=== PATIENT | male | born 1960 | race African-American/Black ===

== ENCOUNTER 2017-05-01 10:00 | Emergency (ER) | payer MEDICARE ==
[2017-05-01] MEDS ORDERED: Pantoprazole 40 MG VIAL ONE (10:40)
[2017-05-01] MEDS ORDERED: Ondansetron HCl/PF 4 MG/2 ML Vial ONE (10:40)
[2017-05-01 11:00] LABS: #Basophils 0.1 thou/uL (0.0-0.2); #Eosinphils 0.4 thou/uL (0.0-0.7); #Lymphocytes 1.6 thou/uL (1.20-3.40); #Monocytes 0.5 thou/uL (0.11-0.59); #Neutrophils 6.6 thou/uL (1.40-6.50); %Basophils 0.9 % (0.0-1.0); %Eosinophils 3.9 % (0.0-10.0); %Lymphocytes 17.2 % (21.0-51.0); %Monocytes 5.7 % (0.0-10.0); Hematocrit 34.6 % (42.0-52.0); Red Blood Cell (RBC) Count 3.67 mill/uL (4.70-6.10); White Blood Cell (WBC) Count 9.2 thou/uL (4.8-10.8)
[2017-05-01 11:08] LABS: PTT 34.4 SEC (22.9-36.1); Prothrombin Time 15.1 SEC (12.0-14.7)
[2017-05-01 11:09] LABS: ALT (SGPT) 8 U/L (8-55); AST (SGOT) 13 U/L (5-34); Alkaline Phosphatase 79 U/L (40-150); Anion Gap 16 mmol/L (10-20); BUN (Urea Nitrogen) 58 mg/dL (8.4-25.7); Bilirubin, Total 0.4 mg/dL (0.2-1.2); CK (CPK) 228 U/L (30-200); Calc. Creatinine Clearance 0 mL/min (70-130); Calcium 9.3 mg/dL (7.8-10.44); Carbon Dioxide 16 mmol/L (22-29); Chloride 109 mmol/L (98-107); Estimated GFR-MDRD 12; Globulin 3.6 g/dL (2.4-3.5); Lipase 81 U/L (8-78); Protein, Total 7.4 g/dL (6.0-8.3)
[2017-05-01 11:13] LABS: Troponin I Less than 0.010 ng/mL (< 0.028)
--- NOTE | 2017-05-01 11:20 | RAD ---
AP VIEW CHEST: HISTORY: Epigastric pain. DATE: 05/01/17. COMPARISON: Comparison is made to previous exam from 10/08/15. FINDINGS: AP view chest demonstrates EKG leads seen over the chest. A dual-lead intracardiac pacing device is seen. The lungs are well aerated. No evidence of active intrathoracic disease is seen. No eviden ce of effusions, pneumonia, or pneumothorax is seen. IMPRESSION: Unremarkable AP view chest. POS: [facility]
[2017-05-01 11:51] LABS: Bilirubin Negative (Negative); Blood, Urine Trace (Negative); Glucose, Urine (Dipstick) Negative (Negative); Ketone, Urine Negative (Negative); Nitrite Negative (Negative); Protein, Urine (Dipstick) 100 mg/dL (Neg-Trace); Urobilinogen 0.2 mg/dL (0.2-1.0)
[2017-05-01 11:53] LABS: Bacteria/HPF None Seen HPF (None Seen); Hyaline Casts/LPF 0-3 HYALINE CAST LPF (0-3 Hyaline); Squamous Epithelial None Seen HPF (0-3); WBC/HPF None Seen HPF (0-3)
--- NOTE | 2017-05-01 11:56 | ULT ---
RIGHT UPPER SONOGRAM: HISTORY: Right upper quadrant pain. FINDINGS: The gallbladder has a normal appearance without evidence of stones. The common duct is 0.[address] Liver is unremarkable without focal mass or intrahepatic biliary dilatation. No free fluid is visible. IMPRESSION: No evidence of gallstones or biliary obstruction. POS: [facility]
--- NOTE | 2017-05-04 06:41 | EKG ---
Test Reason : Blood Pressure : / mmHG Vent. Rate : 080 BPM Atrial Rate : 080 BPM P-R Int : 162 ms QRS Dur : 126 ms QT Int : 386 ms P-R-T Axes : 059 000 063 degrees QTc Int : 445 ms Electronic ventricular pacemaker Confirmed by TRERANCE BELTRAN, DARRIN ([id number]), makeup editor TORITO AGRAWAL ([id number]) on 05/04/2017 6:41:13 AM Referred By: Confirmed By:DARRIN CARLOS MD
== END 2017-05-01 13:54 | disposition home or self-care (01) ==
LOC: ERS 10:00
DX: R10.13 Epigastric pain (principal); I49.9 Cardiac arrhythmia, unspecified; E11.9 Type 2 diabetes mellitus without complications; E78.5 Hyperlipidemia, unspecified; I10 Essential (primary) hypertension; F17.210 Nicotine dependence, cigarettes, uncomplicated; Z79.899 Other long term (current) drug therapy
CPT/HCPCS: 36415; 71010; 76705; 80053; 81003; 81015; 82553; 83690; 83880; 84484; 85025; 85610; 85730; 93005; 94760; 96361; 96374; 96375; C9113; J2270; J2405

== ENCOUNTER 2017-07-11 12:39 | Inpatient (IN) | payer MEDICARE ==
[2017-07-11] MEDS ORDERED: Meclizine HCl 25 MG TAB ONE (12:57)
--- NOTE | 2017-07-11 16:11 | CT ---
CT CHEST WITHOUT CONTRAST: Technique: Multiple axial tomograms were obtained through the chest without IV contrast. History: Dyspnea. Cough. FINDINGS: No recent comparison chest films. Correlation made to a portable chest of 05-01-17. Lungs are well aerated. There are some chronic lung parenchymal changes. There are small blebs seen i n the periphery anteriorly of both lungs. There is some hazy opacity in the right middle lobe which m ay represent early changes of infiltrate. There is also some hazy ground glass opacity in both in store marketing associate ior lung bases which could potentially represent early infiltrate. Chronic changes in both lung bases also noted with interstitial thickening and tiny cystic changes indicating early honeycombing. No evidence of adenopathy. Images through the upper abdomen are unremarkable. IMPRESSION: 1. Chronic lung changes as noted above. 2. Question some early hazy infiltrate in the right middle lobe and question hazy early infiltrate ch anges in both posterior lung bases. These area of ground glass opacity are associated with chronic anny ng findings and these ground glass opacities may also be chronic. Follow up would be necessary to ass ess stability after medical treatment. POS: [facility]
[2017-07-11] MEDS ORDERED: Acetaminophen 325 MG TAB PO PRN (18:17)
[2017-07-11] MEDS ORDERED: HumaLOG 300 UNITS/3 ML VIAL SC PRN (18:17)
[2017-07-11] MEDS ORDERED: Senokot 8.6 MG TAB PO PRN (18:17)
[2017-07-11] MEDS ORDERED: Dextrose 50% Abboject 50 ML SYRINGE SLOW IVP PRN (18:17)
[2017-07-11] MEDS ORDERED: Dextrose 5% in Water 1,000 ML IV PRN (18:17)
[2017-07-11 19:08] LABS: Troponin I 0.013 ng/mL (< 0.028)
[2017-07-11] MEDS ORDERED: cefTRIAXone\\ROCEPHIN 1 GM in Syringe 10 ML SLOW IVP SCH (20:00)
[2017-07-11 20:45] LABS: Troponin I Less than 0.010 ng/mL (< 0.028)
[2017-07-11] MEDS ORDERED: Famotidine 20 MG TAB PO SCH (21:00)
[2017-07-11] MEDS ORDERED: Azithromycin 500 MG in Sodium Chloride 0.9% 250 ML 250 ML IVPB SCH (21:00)
--- NOTE | 2017-07-11 21:59 | HP ---
REASON FOR ADMISSION: COPD exacerbation, pneumonia. HISTORY OF PRESENT ILLNESS: The patient gives history of having cough with expectoration of clear sp utum for the last 1 week or so. He started vomiting this morning. He vomited once at [facility] and once here. These were large amounts with no blood in it. He has also been feeling dizzy from this morning. He had a temperature of 99.9 degrees day before, but none yesterday. The p atient does not know if he has had a flu shot for this year. No complaints of chest pain, palpitatio n, PND, or orthopnea. 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 He has had aneurysm surgery done at [facility], left knee ACL repair, back surgery, gout. CURRENT MEDICATIONS: Patient takes glipizide 5 mg p.o. daily, Zocor 40 mg p.o. daily, metoprolol 25 mg p.o. twice daily, allopurinol 150 mg p.o. daily, aspirin 81 mg p.o. daily, Zantac 150 mg twice chary ly. ALLERGIES: No known drug allergies. PERSONAL HISTORY: Smokes half pack a day, does not abuse alcohol. 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 He has used cocaine and marijuana before, but none at present from last 15 years. FAMILY HISTORY: Mom of brain aneurysm and she also had coronary artery disease. She at th e age of 67 years. Father of stomach cancer at the age of 62 years. REVIEW OF SYSTEMS: The following complete review of systems was negative, unless otherwise mentioned in the HPI or below: Constitutional: Weight loss or gain, ability to conduct usual activities. Sk in: Rash, itching. Eyes: Double vision, pain. ENT/Mouth: Nose bleeding, neck stiffness, pain, te nderness. Cardiovascular: Palpitations, dyspnea on exertion, orthopnea. Respiratory: Shortness of breath, wheezing, cough, hemoptysis, fever or night sweats. Gastrointestinal: Poor appetite, abdom inal pain, heartburn, nausea, vomiting, constipation, or diarrhea. Genitourinary: Urgency, frequenc y, dysuria, nocturia. Musculoskeletal: Pain, swelling. Neurologic/Psychiatric: Anxiety, depressio n. Allergy/Immunologic: Skin rash, bleeding tendency. PHYSICAL EXAMINATION: GENERAL: The patient is a 57-year-old male who is currently not in any acute distress. VITAL SIGNS: Blood pressure 150/96, pulse 68 per minute, respiratory rate 20 per minute, temperature 98.6 degrees Fahrenheit, saturating 99% on room air. NECK: Supple. No elevated JVD. HEENT: Eyes, extraocular muscles intact. Pupils reacting to light. Mucous membranes are dry. No e xudates or congestion. CARDIOVASCULAR: S1, S2 heard. Regular rhythm. RESPIRATORY: Air entry 1+ bilateral. Scattered rhonchi plus and wheezes plus bilateral. ABDOMEN: Soft, bowel sounds heard. No tenderness, rigidity, or guarding. EXTREMITIES: No peripheral edema or calf tenderness. VASCULAR SYSTEM: Peripheral pulses 1+ bilateral. No ischemic ulcerations or gangrene. CENTRAL NERVOUS SYSTEM: No gross focal deficits seen. Patient is alert, awake, oriented x3. PSYCHIATRIC: The patient's mood is euthymic. No hallucinations or delusions. LABORATORY AND X-RAY FINDINGS: Lactic acid was 1.3. CT chest done shows early hazy infiltrate in ri ght middle lobe and questionable hazy early infiltrative changes in the posterior lung bases, otherwi se has chronic lung changes. There is interstitial thickening and tiny cystic changes indicating ear ly honeycombing likely due to chronic changes. Labs done at [facility] shows a tropo mariel of 0.03. Lipase 69. BNP 15. EKG done showed paced rhythm at 80 beats per minute. BUN 56, crea tinine 5.8, serum bicarbonate is 17, potassium 5.2. PT/INR 14 and 1.1, H and H 12 and 35. White cou nt of 9, platelet count 249, MCV is 18. CLINICAL IMPRESSION AND PLAN: The patient will be admitted to medical floor for chronic obstructive pulmonary disease exacerbation with pneumonia and acute kidney injury on top of his chronic kidney di sease, likely stage 4 with metabolic acidosis. He will be on ceftriaxone and Zithromax for his pneum onia along with DuoNeb and IV steroids. We will continue Zocor, glipizide, aspirin, allopurinol as b efore. We will consult Dr. Gonzalez for Nephrology. We will also obtain a viral PCR for respiratory path ogens. He will be on nicotine patch in way of his smoking history. Gentle hydration with normal shahriar ine at 80 mL per hour. We will continue to closely monitor him on medical floor.
[2017-07-11 22:26] VITALS: BMI 26.2
[2017-07-11] MEDS: Sodium Chloride 0.9% 1,000 ML IV SCH (23:34)
[2017-07-11] MEDS: Simvastatin 40 MG TAB PO SCH (23:35)
[2017-07-11] MEDS: Metoprolol Tartrate 25 MG TAB PO SCH (23:35)
[2017-07-11] MEDS: Nicotine 14 MG PATCH TD SCH (23:36)
[2017-07-12 01:52] LABS: Troponin I 0.011 ng/mL (< 0.028)
[2017-07-12 03:57] LABS: #Eosinphils 0.2 thou/uL (0.0-0.7); #Lymphocytes 1.1 thou/uL (1.20-3.40); #Monocytes 0.3 thou/uL (0.11-0.59); #Neutrophils 7.6 thou/uL (1.40-6.50); %Basophils 0.3 % (0.0-1.0); %Eosinophils 2.1 % (0.0-10.0); %Lymphocytes 11.7 % (21.0-51.0); %Monocytes 2.9 % (0.0-10.0); %Neutrophils 82.9 % (42.0-75.0); Mean Corpuscular HGB CONC 34.4 g/dL (32.0-36.0); Mean Corpuscular Hemoglobin 32.3 pg (27.0-31.0); Mean Corpuscular Volume 93.7 fl (80.0-94.0); Mean Platelet Volume 7.1 fL (7.4-10.4); Platelet Count 231 thou/uL (130-400); RBC Distribution Width 12.7 % (11.5-14.5); Red Blood Cell (RBC) Count 3.43 mill/uL (4.70-6.10); White Blood Cell (WBC) Count 9.2 thou/uL (4.8-10.8)
[2017-07-12 04:09] LABS: Anion Gap 17 mmol/L (10-20); BUN (Urea Nitrogen) 58 mg/dL (8.4-25.7); Calc. Creatinine Clearance 20 mL/min (70-130); Calcium 8.7 mg/dL (7.8-10.44); Carbon Dioxide 15 mmol/L (22-29); Chloride 112 mmol/L (98-107); Estimated GFR-MDRD 14; Glucose 137 mg/dL (70-105); Potassium 4.6 mmol/L (3.5-5.1); Sodium 139 mmol/L (136-145)
[2017-07-12] MEDS: Metoprolol Tartrate 25 MG TAB PO SCH ×2 (08:29→21:14)
[2017-07-12] MEDS: glipiZIDE 5 MG TAB PO SCH (08:29)
[2017-07-12] MEDS: Allopurinol 100 MG TAB PO SCH (08:29)
[2017-07-12] MEDS: Enoxaparin Sodium 30 MG/0.3 ML SYRINGE SC SCH (08:30)
[2017-07-12] MEDS ORDERED: FLU VACC QS2017-18 36 mo. & older 0.5 ML SYRINGE IM ONE (09:00)
--- NOTE | 2017-07-12 10:33 | CON ---
DATE OF CONSULTATION: 07/12/2017 HISTORY OF PRESENT ILLNESS: Mr. Hodges is a 57-year-old black male with history of chronic renal tiana lure from diabetic nephropathy and admitted for COPD exacerbation/pneumonia. We are being consulted for his chronic renal failure. The patient has a longstanding history of chronic renal failure. He has already initiated a meeting with renal transplant program in [facility]. He has a possible donor - h is son is 24 years old. This morning he is feeling little better. REVIEW OF SYSTEMS: No chest pain. Positive for generalized malaise. No nausea. Positive for cough . Positive for low-grade fever. No shortness of breath, no chest pain, no gross hematuria, no dysur ia, no urinary frequency, no syncopal episodes. Appetite is decreased. No headache. No diplopia. No sore throat. HOME MEDICATIONS: Include Zocor 40 mg tab at bedtime, glipizide 5 mg daily, metoprolol 25 mg p.o. tw ice a day, allopurinol 150 mg once daily, aspirin 81 mg tab daily, Zantac 150 mg b.i.d. The patient is currently also on IV azithromycin and IV ceftriaxone. He is also on Lovenox 30 mg sub cu every day. He is on a Humalog sliding scale and Solu-Medrol 40 mg IV q.6. PAST MEDICAL HISTORY: 1. Chronic renal failure from diabetic nephropathy. 2. Type 2 diabetes mellitus. 3. Gout. 4. Hypertension. 5. Hyperlipidemia. 6. Coronary artery disease. PAST SURGICAL HISTORY: 1. Aneurysmal repair done at [facility], status post left knee ACL repair. 2. Status post back surgery. 3. Status post cardiac catheterization with coronary stent placement. 4. He has also a pacemaker. ALLERGIES: None. TRAUMA: None. IMMUNIZATIONS: Up to date. HOSPITALIZATIONS: Please see past medical history. SOCIAL HISTORY: The patient lives in the [facility]. He has four children. . Currently n o smoking. Status post marijuana use many years ago. Sedentary lifestyle. FAMILY HISTORY: No family history of ESRD. PHYSICAL EXAMINATION: VITAL SIGNS: Blood pressure is 150/96, heart rate 68, respiratory rate 20, temperature 98.6, O2 sat 99%. GENERAL: Awake, alert, sitting comfortable, not in distress. SKIN: Adequate turgor. HEENT: Pinkish conjunctivae, anicteric sclerae. NECK: No neck mass, no carotid bruits, no JVD. CHEST: No deformities. LUNGS: Decreased breath sounds. HEART: Normal sinus rhythm. No murmur, no gallops or no rubs. ABDOMEN: Globular, soft, nontender, no masses. EXTREMITIES: No edema, no deformities. NEUROLOGIC: Awake, oriented to 3 spheres. Moving all extremities. No tremors, no asterixis, no samira kenzie. LABORATORY: On 07/12/2017, white count 9.2, hemoglobin 11. Sodium 139, potassium 4.6, chloride 112, carbon dioxide 15, BUN 58, creatinine 5.24, glucose 137. GFR 14 mL per minute, calcium is 8.7. Fur ther review of his serum creatinine shows the following on 05/01/2017 creatinine was 5.7. ASSESSMENT AND PLAN: 1. Chronic renal failure from presumed diabetic nephropathy. Creatinine noted at 5.24. He is curre ntly at stage 5 chronic renal failure. I did have a discussion with the patient about the eventual n eed for dialysis. He is still hesitant with this. He would like to think about it. Please note the patient is not following up at the renal transplant program for a possible elective transplantation in the next several months. He has not been officially listed in the renal transplant program. 2. Pneumonia, on IV antibiotics, agree with current management. Continue volume repletion. 3. Acute kidney injury on top of his chronic renal failure - consider possible superimposed prerenal azotemia. Continue IV hydration. 4. Metabolic acidosis. Start sodium bicarbonate 650 mg 1 tab t.i.d. 5. Check base met and CBC, phosphorus, and PTH in the a.m.
[2017-07-12] MEDS: Sodium Chloride 0.9% 1,000 ML IV SCH ×2 (11:47→15:40)
--- NOTE | 2017-07-12 13:04 | PDOC.PN ---
- Subjective Encounter Start Date: 07/12/17 Encounter Start Time: 11:45 Subjective: breathing better, no sob/chest pain/palpitations -: is amb in room - Objective MAR Reviewed: Yes Vital Signs & Weight: Vital Signs (12 hours) Temp Pulse Resp BP Pulse Ox 07/12/17 11:00 98.4 F 117 H 18 170/98 H 98 07/12/17 07:52 98.1 F 76 16 97 07/12/17 07:44 76 15 99 07/12/17 07:37 98.1 F 77 16 125/80 96 07/12/17 04:00 74 18 125/56 L 97 Weight Weight 203 lb 4.8 oz I&O: 07/11/17 07/12/17 07/13/17 06:59 06:59 06:59 Intake Total 1396 Output Total 910 Balance 486 Result Diagrams: 07/12/17 01:22 07/12/17 01:22 Additional Labs: Accuchecks 07/12/17 07/11/17 05:57 21:59 POC Glucose 142 H 130 H Phys Exam - Physical Examination HEENT: PERRLA, moist MMs Neck: no JVD, supple Respiratory: no wheezing, no rales Cardiovascular: RRR, no significant murmur Gastrointestinal: soft, non-tender, positive bowel sounds Musculoskeletal: no edema, pulses present Neurological: non-focal, moves all 4 limbs Psychiatric: A&O x 3 Dx/Plan (1) PNA (pneumonia) Code(s): J18.9 - PNEUMONIA, UNSPECIFIED ORGANISM Status: Acute Qualifiers: Pneumonia type: due to unspecified organism Laterality: bilateral (2) COPD exacerbation Code(s): J44.1 - CHRONIC OBSTRUCTIVE PULMONARY DISEASE W (ACUTE) EXACERBATION Status: Acute (3) CAD (coronary artery disease) Code(s): I25.10 - ATHSCL HEART DISEASE OF [place] CORONARY ARTERY W/O ANG PCTRS Status: Chronic Qualifiers: Coronary Disease-Associated Artery/Lesion type: redding artery [place] vs. transplanted heart: redding heart Associated angina: without angina Qualified Code(s): I25.10 - Atherosclerotic heart disease of [place] coronary artery without angina pectoris (4) HTN (hypertension) Code(s): I10 - ESSENTIAL (PRIMARY) HYPERTENSION Status: Chronic Qualifiers: Hypertension type: essential hypertension Qualified Code(s): I10 - Essential (primary) hypertension (5) ZACH (acute kidney injury) Code(s): N17.9 - ACUTE KIDNEY FAILURE, UNSPECIFIED Status: Acute (6) CKD (chronic kidney disease) stage 5, GFR less than 15 ml/min Code(s): N18.5 - CHRONIC KIDNEY DISEASE, STAGE 5 Status: Chronic (7) Metabolic acidosis Code(s): E87.2 - ACIDOSIS Status: Acute (8) DM type 2 (diabetes mellitus, type 2) Status: Chronic Qualifiers: Diabetes mellitus complication status: with kidney complications Diabetes mellitus complication detail: with chronic kidney disease Diabetes mellitus alf insulin use: without alf use Chronic kidney disease stage: stage 5, not on chronic dialysis Qualified Code(s): E11.22 - Type 2 diabetes mellitus with diabetic chronic kidney disease; N18.5 - Chronic kidney disease, stage 5; N18.5 - Chronic kidney disease, stage 5; N18.5 - Chronic kidney disease , stage 5; N18.5 - Chronic kidney disease, stage 5 (9) Dyslipidemia Code(s): E78.5 - HYPERLIPIDEMIA, UNSPECIFIED Status: Chronic - Plan is on zithromax and ceftriaxone -: nebs, taper steroids -: viral pcr was -ve -: tx to med floor -: gentle iv hydration for zach/ckd * . Review of Systems - Medications/Allergies Allergies/Adverse Reactions: Allergies Allergy/AdvReac Type Severity Reaction Status Date / Time No Known Drug Allergies Allergy Verified 07/11/17 22:21 Medications: Current Medications Acetaminophen (Tylenol) 650 mg PO Q4H PRN PRN Reason: Headache/Fever or Pain Albuterol/Ipratropium (Duoneb) 3 ml NEB [id number] [facility] Last Admin: 07/12/17 07:44 Dose: 3 ml Allopurinol (Zyloprim) 100 mg PO DAILY [facility] Last Admin: 07/12/17 08:29 Dose: 100 mg Aspirin (Aspirin Chewable) 81 mg PO DAILY [facility] Last Admin: 07/12/17 08:29 Dose: 81 mg Dextrose/Water (Dextrose 50%) 25 gm SLOW IVP PRN PRN PRN Reason: Hypoglycemia Enoxaparin Sodium (Lovenox) 30 mg SC 0900 [facility] Last Admin: 07/12/17 08:30 Dose: 30 mg Famotidine (Pepcid) 20 mg PO Q24HR [facility] Glipizide (Glucotrol) 5 mg PO DAILY-AC [facility] Last Admin: 07/12/17 08:29 Dose: 5 mg Glucagon (Glucagon) 1 mg IM PRN PRN PRN Reason: Hypoglycemia Dextrose/Water (D5w) 1,000 mls @ 0 mls/hr IV .Q0M PRN; As Directed PRN Reason: Hypoglycemia Azithromycin 500 mg/ Sodium (Chloride) 250 mls @ 250 mls/hr IVPB 2100 [facility] Ceftriaxone Sodium 1 gm/ (Syringe) 10 mls @ 120 mls/hr SLOW IVP 2000 [facility] Insulin Human Lispro (Humalog) 0 units SC .MILD SLIDING SCALE PRN PRN Reason: Mild Correctional Scale Methylprednisolone Sodium Succinate (Solu-Medrol) 20 mg IVP Q8HR [facility] Metoprolol Tartrate (Lopressor) 12.5 mg PO BID [facility] Last Admin: 07/12/17 08:29 Dose: 12.5 mg Nicotine (Nicoderm Patch) 14 mg TD Q24HR [facility] Last Admin: 07/11/17 23:36 Dose: 14 mg Senna (Senokot) 2 tab PO HSPRN PRN PRN Reason: Constipation Simvastatin (Zocor) 40 mg PO HS [facility] Last Admin: 07/11/17 23:35 Dose: 40 mg Sodium Bicarbonate (Bicarbonate, Sodium) 650 mg PO TID [facility] Sodium Chloride (Flush - Normal Saline) 10 ml IVF Q12HR [facility] Last Admin: 07/12/17 10:18 Dose: Not Given Sodium Chloride (Flush - Normal Saline) 10 ml IVF PRN PRN PRN Reason: Saline Flush
[2017-07-12] MEDS ORDERED: Metoprolol Tartrate 25 MG TAB PO SCH (15:30)
[2017-07-12] MEDS: Sodium Bicarbonate Tab 325 MG TAB PO SCH ×2 (18:14→21:14)
[2017-07-12] MEDS: cefTRIAXone\\ROCEPHIN 1 GM in Syringe 10 ML SLOW IVP SCH (20:45)
[2017-07-12] MEDS ORDERED: Famotidine 20 MG TAB PO SCH ×2 (21:00→21:30)
[2017-07-12] MEDS: Simvastatin 40 MG TAB PO SCH (21:14)
[2017-07-12] MEDS ORDERED: Nicotine 14 MG PATCH TD SCH (21:30)
[2017-07-12] MEDS: Azithromycin 500 MG in Sodium Chloride 0.9% 250 ML 250 ML IVPB SCH (21:59)
--- NOTE | 2017-07-12 22:18 | CON ---
DATE OF CONSULTATION: 07/12/2017 HISTORY OF PRESENT ILLNESS: Mr. Hodges is a 57-year-old male. He was admitted with complaints of a cough for a week. He was seen in [place] in the emergency department, was transferred here. He was vomiting when he wa s in the ER there. He is a smoker, but says he has never been told he has COPD. He says he is feeling much better than he felt yesterday. PAST MEDICAL HISTORY: 1. Remarkable for diabetes. 2. Chronic kidney disease associated with his diabetes. 3. History of gout. 4. Hypertension. 5. Lipid disorder. 6. History of coronary artery disease with coronary stenting in the past. 7. History of back surgery. 8. History of an ACL repair of his left knee. 9. History of aneurysm surgery done at [facility]. 10. History of pacemaker. SOCIAL HISTORY: He is not smoking or drinking. PHYSICAL EXAMINATION: VITAL SIGNS: He is afebrile, heart rate is 85, respiratory rate is 15, oximetry is 99, blood pressur e 170/98. HEENT: Pupils are equal. Sclerae is anicteric. NECK: Supple. LUNGS: Clear. HEART: Regular rhythm. ABDOMEN: Soft. EXTREMITIES: Without asymmetry. LABORATORY DATA: White count 9.2, hemoglobin 11.0, platelets 231,000. Sodium 139, potassium 4.6, ch loride 112, bicarbonate 15, BUN 58, creatinine 5.24. Chest radiograph shows hazy early mild infiltra justyn, right middle lobe and both lung bases. It is unclear whether this is an edema or infectious. He has been treated with antibiotics. He appears to be clinically improved. IMPRESSION: ? atypical pneumonia versus mild pulmonary edema. Continue antibiotics and steroids. I will be happy to follow with the other physicians caring for him. We will continue his nebulizer tr eatments. He says he is clinically improved and actually is in no distress. He could probably be tr ansferred out of a monitored bed to a regular medical bed.
[2017-07-12] MEDS: Nicotine 14 MG PATCH TD SCH (22:27)
[2017-07-13 05:45] LABS: #Monocytes 0.5 thou/uL (0.11-0.59); #Neutrophils 16.3 thou/uL (1.40-6.50); %Eosinophils 0.1 % (0.0-10.0); %Lymphocytes 5.5 % (21.0-51.0); %Monocytes 2.9 % (0.0-10.0); %Neutrophils 91.5 % (42.0-75.0); Hemoglobin 10.6 g/dL (14.0-18.0); Mean Corpuscular HGB CONC 34.1 g/dL (32.0-36.0); Mean Corpuscular Hemoglobin 31.8 pg (27.0-31.0); Mean Corpuscular Volume 93.2 fl (80.0-94.0); Mean Platelet Volume 6.8 fL (7.4-10.4); Platelet Count 233 thou/uL (130-400); RBC Distribution Width 12.4 % (11.5-14.5); Red Blood Cell (RBC) Count 3.33 mill/uL (4.70-6.10); White Blood Cell (WBC) Count 17.8 thou/uL (4.8-10.8)
[2017-07-13 05:56] LABS: Anion Gap 15 mmol/L (10-20); BUN (Urea Nitrogen) 57 mg/dL (8.4-25.7); Calc. Creatinine Clearance 21 mL/min (70-130); Calcium 8.7 mg/dL (7.8-10.44); Carbon Dioxide 16 mmol/L (22-29); Chloride 112 mmol/L (98-107); Estimated GFR-MDRD 15; Glucose 124 mg/dL (70-105); Phosphorus 3.3 mg/dL (2.3-4.7); Potassium 5.8 mmol/L (3.5-5.1); Sodium 137 mmol/L (136-145)
[2017-07-13] MEDS: Allopurinol 100 MG TAB PO SCH (08:06)
[2017-07-13] MEDS: Metoprolol Tartrate 25 MG TAB PO SCH ×2 (08:06→21:32)
[2017-07-13] MEDS: Sodium Bicarbonate Tab 325 MG TAB PO SCH ×3 (08:06→21:31)
[2017-07-13] MEDS: Enoxaparin Sodium 30 MG/0.3 ML SYRINGE SC SCH (08:07)
[2017-07-13] MEDS: glipiZIDE 5 MG TAB PO SCH (08:07)
[2017-07-13] MEDS: Sodium Chloride 0.9% 1,000 ML IV SCH (08:11)
--- NOTE | 2017-07-13 09:30 | PRG ---
DATE OF SERVICE: 07/13/2017 SERVICE: Renal Medicine. SUBJECTIVE: Mr. Hodges is a 57-year-old black male who was seen for his acute kidney injury on top o f his chronic renal failure. He has been given gentle volume repletion and slight improvement of shay al function has been noted. He also has been encouraged to follow up with his renal transplant progr am for possible placement on the renal list. This morning, he voices no new complaints. He denies a ny chest pain or shortness of breath. OBJECTIVE: VITAL SIGNS: Blood pressure is 175/91, heart rate 79, respiratory rate 16, pulse ox 100%. GENERAL: Awake, sitting comfortable, not in distress. SKIN: Adequate turgor. HEENT: Pinkish conjunctivae, anicteric sclerae. NECK: No neck mass, no carotid bruits, no JVD. CHEST: No deformities. LUNGS: Clear breath sounds. No wheezing, no crackles. HEART: Normal sinus rhythm. No murmur, no gallops, no rubs. ABDOMEN: Globular, soft, nontender, no masses. EXTREMITIES: No edema, no deformities. MEDICATIONS: Of 07/13/2017 was reviewed. LABORATORY DATA: Of 04/13/2017, white count 17.8, hemoglobin 10.6, sodium 137, potassium 5.8, chlori de 112, carbon dioxide 16, BUN 57, creatinine 4.83, glucose 124, calcium 8.7, phosphorus 3.3, PTH is 1050. ASSESSMENT AND PLAN: 1. Mild hyperkalemia. Continue to observe. Place the patient on renal diet. Low potassium diet. 2. Chronic renal failure/acute kidney injury, slightly improved creatinine. Please note, creatinine on admission was noted at 5.24 and is currently now at 4.83. GFR is 15 mL per minute and this place s him at stage IV chronic renal failure. No indication for any emergent hemodialysis. I did encoura ge the patient to follow up with my renal clinic and he has been noncompliant with this. He said he will try to follow up with me after discharge. 3. Secondary hyperparathyroidism. Start calcitriol 0.25 mcg tab daily. Again, I encouraged the patient to follow up at the renal transplant program. He has a possible amy ng donor.
[2017-07-13] MEDS: Calcitriol 0.25 MCG CAP PO SCH (12:32)
--- NOTE | 2017-07-13 16:21 | PRG ---
DATE OF SERVICE: 07/13/2017 SUBJECTIVE: Sachin Hodges continues to improve. He is in no distress. OBJECTIVE: VITAL SIGNS: Stable. LUNGS: Almost completely clear now. HEART: Regular rhythm. ABDOMEN: Soft. We will continue to monitor his renal function. Dr. Gonzalez is following as well. IMPRESSION: Asthmatic bronchitis with ? an atypical pneumonia versus small pulmonary edema, clinical ly improving. If his renal function was normal, I would recommend sending him home tonight, but give n the fact that we need to monitor renal function, I think it is reasonable to keep him another day a nd reassess him in the morning.
[2017-07-13] MEDS ORDERED: Famotidine 20 MG TAB PO SCH (21:00)
[2017-07-13] MEDS ORDERED: Nicotine 14 MG PATCH TD SCH (21:00)
[2017-07-13] MEDS: cefTRIAXone\\ROCEPHIN 1 GM in Syringe 10 ML SLOW IVP SCH (21:30)
[2017-07-13] MEDS: Simvastatin 40 MG TAB PO SCH (21:32)
[2017-07-13] MEDS: Azithromycin 500 MG in Sodium Chloride 0.9% 250 ML 250 ML IVPB SCH (21:32)
--- NOTE | 2017-07-13 21:44 | PDOC.PN ---
- Subjective Encounter Start Date: 07/13/17 Encounter Start Time: 21:35 Subjective: f/u for acute bronchitis and ZACH/CKD V. Feeling good today and no fever. -: Ambulating without difficulty. Wants to quit smoking and the Nicotine -: patch is helping. - Objective MAR Reviewed: Yes Vital Signs & Weight: Vital Signs (12 hours) Temp Pulse Resp BP BP Pulse Ox 07/13/17 19:24 90 16 100 07/13/17 19:19 97.9 F 79 16 178/80 H 97 07/13/17 15:36 77 168/77 H 07/13/17 13:20 72 16 Weight Weight 203 lb 4.8 oz I&O: 07/12/17 07/13/17 07/14/17 06:59 06:59 06:59 Intake Total 7844 489 9545 Output Total 910 Balance 773 490 3176 Result Diagrams: 07/13/17 05:23 07/13/17 05:23 Additional Labs: Accuchecks 07/13/17 07/13/17 07/13/17 21:22 16:48 11:30 POC Glucose 240 H 144 H 107 07/13/17 06:32 POC Glucose 130 H Microbiology 07/12/17 06:05 Nasopharyngeal swab Respiratory Virus Panel (PCR) ([facility]) - Final 07/11/17 16:52 Venous blood - Left Arm Blood Culture - Preliminary NO GROWTH AT 48 HOURS 07/11/17 16:47 Venous blood - Right Arm Blood Culture - Preliminary NO GROWTH AT 48 HOURS 07/11/17 10:00 Sputum Respiratory Culture - Preliminary Laboratory Tests 07/12/17 07/12/17 07/13/17 01:22 01:22 05:23 WBC 9.2 Potassium 4.6 Creatinine 5.24 H Phosphorus 3.3 PTH Intact 07/13/17 05:23 WBC Potassium Creatinine Phosphorus PTH Intact 1050.1 H Radiology Reviewed by me: Yes (2D echo - EF 60-65%, mod AV regurg, diast dysfxn) Phys Exam - Physical Examination Constitutional: NAD HEENT: PERRLA, oral pharynx no lesions Neck: no JVD, supple scattered coarse bibasilar sounds Cardiovascular: RRR Gastrointestinal: soft, non-tender, no distention, positive bowel sounds Musculoskeletal: no edema, pulses present Neurological: normal sensation, moves all 4 limbs Psychiatric: A&O x 3 Skin: normal turgor, cap refill <2 seconds Dx/Plan (1) ZACH (acute kidney injury) Code(s): N17.9 - ACUTE KIDNEY FAILURE, UNSPECIFIED Status: Acute Comment: slow improvement, gentle IVF's, avoid nephrotoxic meds, repeat creat in am (2) COPD exacerbation Code(s): J44.1 - CHRONIC OBSTRUCTIVE PULMONARY DISEASE W (ACUTE) EXACERBATION Status: Acute Comment: Resolving, continue Duonebs, Solumedrol, Zithromax and Rocephin (3) CAD (coronary artery disease) Code(s): I25.10 - ATHSCL HEART DISEASE OF [place] CORONARY ARTERY W/O ANG PCTRS Status: Chronic Qualifiers: Coronary Disease-Associated Artery/Lesion type: [place] artery [place] vs. transplanted heart: [place] heart Associated angina: without angina Qualified Code(s): I25.10 - Atherosclerotic heart disease of [place] coronary artery without angina pectoris Comment: chronic, stable (4) CKD (chronic kidney disease) stage 5, GFR less than 15 ml/min Code(s): N18.5 - CHRONIC KIDNEY DISEASE, STAGE 5 Status: Chronic (5) DM type 2 (diabetes mellitus, type 2) Status: Chronic Qualifiers: Diabetes mellitus complication status: with kidney complications Diabetes mellitus complication detail: with chronic kidney disease Diabetes mellitus fci insulin use: without fci use Chronic kidney disease stage: stage 5, not on chronic dialysis Qualified Code(s): E11.22 - Type 2 diabetes mellitus with diabetic chronic kidney disease; N18.5 - Chronic kidney disease, stage 5; N18.5 - Chronic kidney disease, stage 5; N18.5 - Chronic kidney disease , stage 5; N18.5 - Chronic kidney disease, stage 5 Comment: Continue Glipizide 5mg daily, ISS (6) HTN (hypertension) Code(s): I10 - ESSENTIAL (PRIMARY) HYPERTENSION Status: Chronic Qualifiers: Hypertension type: essential hypertension Qualified Code(s): I10 - Essential (primary) hypertension Comment: Stable, continue current regimen (7) Tobacco abuse Code(s): Z72.0 - TOBACCO USE Status: Chronic Comment: Continue Nicotine patch daily - Plan plan discussed w/ family, continue antibiotics, respiratory therapy, out of bed/ ambulate, DVT proph w/SCDs Stable overall -: Continue pulmonary support -: Transition to Prednisone in am -: Transition to po abx in am -: AM lab: BMP * Likely home in am
[2017-07-14] MEDS: Sodium Chloride 0.9% 1,000 ML IV SCH (05:34)
[2017-07-14 06:18] LABS: Hemoglobin 10.7 g/dL (14.0-18.0); Lymphocytes 6 % (21-51); MDiff Complete? YES; Mean Corpuscular HGB CONC 33.4 g/dL (32.0-36.0); Mean Corpuscular Hemoglobin 31.4 pg (27.0-31.0); Mean Corpuscular Volume 93.8 fl (80.0-94.0); Monocytes 1 % (0-10); Neutrophil 93 % (42-75); PLT Morphology Comment Appears Adequate; Platelet Count 282 thou/uL (130-400); RBC Distribution Width 12.5 % (11.5-14.5); White Blood Cell (WBC) Count 16.8 thou/uL (4.8-10.8)
[2017-07-14 06:30] LABS: Anion Gap 14 mmol/L (10-20); BUN (Urea Nitrogen) 58 mg/dL (8.4-25.7); Calc. Creatinine Clearance 23 mL/min (70-130); Calcium 8.5 mg/dL (7.8-10.44); Carbon Dioxide 18 mmol/L (22-29); Chloride 113 mmol/L (98-107); Estimated GFR-MDRD 17; Glucose 160 mg/dL (70-105); Potassium 5.5 mmol/L (3.5-5.1); Sodium 139 mmol/L (136-145)
[2017-07-14] MEDS: glipiZIDE 5 MG TAB PO SCH (07:32)
[2017-07-14 07:56] VITALS: BP 176/105; TEMP 98
[2017-07-14] MEDS: Allopurinol 100 MG TAB PO SCH (09:53)
[2017-07-14] MEDS: Calcitriol 0.25 MCG CAP PO SCH (09:54)
[2017-07-14] MEDS: Sodium Bicarbonate Tab 325 MG TAB PO SCH (09:54)
[2017-07-14] MEDS: Enoxaparin Sodium 30 MG/0.3 ML SYRINGE SC SCH (09:54)
[2017-07-14] MEDS: Metoprolol Tartrate 25 MG TAB PO SCH (09:54)
--- NOTE | 2017-07-14 13:36 | DIS ---
DATE OF ADMISSION: 07/11/2017 DATE OF DISCHARGE: 07/14/2017 DISCHARGE DIAGNOSES: 1. Acute chronic obstructive pulmonary disease exacerbation, improved. 2. Acute bronchitis, improved. 3. Acute kidney injury on chronic kidney disease, stage 4-5, improved. 4. Tobacco abuse. 5. Coronary artery disease, chronic and stable. 6. Diabetes mellitus, type 2, with diabetic nephropathy. 7. Hypertension, labile. CONSULTATIONS: Dr. Porras with Pulmonology Service and Dr. Gonzalez with Nephrology Service. PERTINENT LABORATORY AND X-RAY FINDINGS: Potassium ranged between 4.6-5.8. Creatinine ranged betwee n 4.43-5.24 with estimated GFR ranging between 14-17. Lactic acid level 1.3, phosphorus 3.3. CBC sh owed a white blood cell count ranging between 9.2-17.8, hemoglobin ranged between 10.6-11.0. Blood c ultures x2 dated 07/11/2017 showed no growth at 48 hours. Respiratory virus panel dated 07/12/2017 n egative. Sputum culture dated 07/11/2017 showed moderate normal respiratory alina. CT of the chest dated 07/11/2017 showed chronic changes in bilateral lung funze. Hazy infiltrate in the right middl e lobe as well as posterior lung bases. A 2D transthoracic echocardiogram dated 07/12/2017 showed ej ection fraction of 60%-65%. Diastolic dysfunction noted. Sclerotic aortic valve. [id number] aortic regurgitation. HOSPITAL COURSE: Patient was admitted to the medical floor after initially presenting with increased cough, dyspnea in the context of ongoing tobacco abuse, and chronic obstructive pulmonary disease ex acerbation. The patient underwent extensive evaluation including CT imaging of the chest showing chr onic lung changes consistent with longstanding tobacco use. The patient was placed on broad-spectrum IV antibiotic therapy including Zithromax and Rocephin as well as given IV Solu-Medrol, DuoNeb, and mucolytics. The patient was evaluated by the Pulmonology Service with recommendations for ongoing ge neral pulmonary supportive measures in conjunction with oxygen supplementation. The patient did clin ically improve with pulmonary supportive measures and cessation of smoking. Patient was given a evie brittani transdermal patch with recommendations to continue on an outpatient basis with the plan for quit ting to be discussed with his primary care provider. The patient was also evaluated after initial cr eatinine at the time of admission was noted at 5.24. The patient with known longstanding history of chronic kidney disease, stage 4, with mild acute kidney injury, treated with IV fluid hydration and s erial monitoring. Overall, creatinine did return to baseline values with current Nephrology recommen dations to follow up with his renal clinic through the [facility] after discharge. Overall, the patie nt clinically stabilized, tolerating regular oral intake, ambulating without assistance or difficulty , and ready for discharge 07/14/2017. DISCHARGE MEDICATIONS: 1. Combivent Respimat 1 puff inhaled q.i.d. 2. Allopurinol 100 mg 1 tab p.o. daily. 3. Enteric-coated aspirin 81 mg 1 tab p.o. daily. 4. Omnicef 300 mg 1 tab p.o. daily x7 days. 5. Glipizide 2.5 mg p.o. b.i.d. 6. Metoprolol tartrate 25 mg p.o. b.i.d. 7. Nicoderm transdermal patch 14 mg transdermally daily. 8. Prednisone 20 mg 2 tabs p.o. daily x 3 days, followed by 1 tab p.o. daily x 3 days, followed by 1 /2 a tab p.o. daily x3 days. 9. Simvastatin 40 mg p.o. at bedtime. FOLLOWUP: Patient will follow up with his primary care provider, Dr. Gandara at the [facility] in [place], [place] within 7 days. The patient may also follow up with Dr. Gonzalez with Nephrolog y Service and to call his office for appointment time and date. CONDITION ON DISCHARGE: Stable. ACTIVITY: Ad sherwin. DIET: Heart healthy and ADA. CODE STATUS: FULL. DISPOSITION: Home, 07/14/2017.
--- NOTE | 2017-07-14 20:07 | PRG ---
DATE OF SERVICE: 07/14/2017 SUBJECTIVE: No new complaints today. No chest pain or shortness of breath. Patient's pneumonia is being treated with IV antibiotics. He has most likely an acute bronchitis rather than pneumonia. Abdelrahman linn symptoms are much improved. 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 Creatinine is slowly improved with gentle volume repletion. He voices no new com plaints today. The patient denies any chest pain or shortness of breath. No nausea, no vomiting. PHYSICAL EXAMINATION: VITAL SIGNS: Blood pressure is noted at 176/105 with a heart rate of 79, respiratory rate 16, temper ature 98, pulse ox 97%. Please note that the BP was taking before medications. GENERAL: He is noted to be awake, sitting comfortable, not in distress. SKIN: Adequate turgor. HEENT: Pinkish conjunctivae, anicteric sclerae. LUNGS: No neck mass. No carotid bruits, no JVD. CHEST: No deformities. LUNGS: Decreased breath sounds. HEART: Normal sinus rhythm. No murmur, no gallops or rubs. ABDOMEN: Globular, soft, nontender, no masses. EXTREMITIES: No edema. MEDICATIONS: Of 07/14/2017 was reviewed. DATA: Laboratories of 07/14/2017, white count 16.8, hemoglobin 10.7. Sodium 139, potassium 5.5, chl oride 103, carbon dioxide 18, BUN 58, creatinine 4.43, calcium 8.5. Further review of his labs show PTH of 1050. On 07/13, creatinine was 4.83. ASSESSMENT AND PLAN: 1. Chronic acute kidney injury on top of his chronic renal failure, improving prerenal azotemia. Abdelrahman linn GFR is now noted at 17 mL per minute. There is no indication for any dialytic intervention. Howev er, this patient will eventually need dialytic intervention and/or renal transplantation. He has bee n encouraged to follow up with the renal transplant program in [place]. He tells me he has a living donor. 2. Secondary hyperparathyroidism initiated on calcitriol 0.25 mcg tab daily. 3. Mild hyperkalemia. Continue to observe - low potassium diet. I have instructed this patient to follow up at the [facility] upon discharge. 4. Acute bronchitis -- on antibiotics. Overall, agree with current management.
--- NOTE | 2017-07-16 16:22 | PQF ---
CROW IVY MALIK MD [id number] CLINICAL DOCUMENTATION CLARIFICATION FORM: POST DISCHARGE Addendum to original discharge summary date: ____ Late entry note date: __ DATE: 07/16/17 ATTN: CALVIN CUMMINGS MD Please exercise your independent, professional judgment in responding to the clarification form. Clinical indicators are provided on the bottom of this form for your review H & P Reason for Admission: COPD exacerbation, pneumonia Discharge Summary ....CT 07/11/17 of the chest showed chronic changes in bilateral lung funez [ ] Diagnosis of: [ ] Present on admission: [ ] Yes [ ] No [ ] Unable to determine [ ] Other diagnosis: Coding guidelines require hospitals to identify whether a diagnosis was present on admission (POA) or not. To accurately assign the appropriate POA indicator, this information must be clearly documented within the medical record. CLINICAL INDICATORS - SIGNS / SYMPTOMS / LABS Documentation of: Documentation of: Documentation of: RISK FACTORS: TREATMENT: obiorjuan [phone] I never evaluated this patient - Aydee (This form is maintained as a part of the permanent medical record) 2015 [employer] All Rights Reserved [facility]
== END 2017-07-14 10:24 | disposition home or self-care (01) | DRG 190 ==
LOC: ERS 12:39 → IMCU/EMU 21:40 → ONC 07-12 19:06
PROVIDERS: ADMIT Internal Medicine; ATTEND Internal Medicine
DX: J44.0 Chronic obstructive pulmonary disease with (acute) lower respiratory infection (principal); J18.9 Pneumonia, unspecified organism; N17.9 Acute kidney failure, unspecified; E87.2 Acidosis; N18.4 Chronic kidney disease, stage 4 (severe); E11.22 Type 2 diabetes mellitus with diabetic chronic kidney disease; N25.81 Secondary hyperparathyroidism of renal origin; J44.1 Chronic obstructive pulmonary disease with (acute) exacerbation; E11.9 Type 2 diabetes mellitus without complications; I12.9 Hypertensive chronic kidney disease with stage 1 through stage 4 chronic kidney disease, or unspecified chronic kidney disease; E87.5 Hyperkalemia; J20.9 Acute bronchitis, unspecified; E78.5 Hyperlipidemia, unspecified; I35.1 Nonrheumatic aortic (valve) insufficiency; I35.8 Other nonrheumatic aortic valve disorders; F17.210 Nicotine dependence, cigarettes, uncomplicated; Z95.5 Presence of coronary angioplasty implant and graft; Z95.0 Presence of cardiac pacemaker; Z82.49 Family history of ischemic heart disease and other diseases of the circulatory system; Z86.79 Personal history of other diseases of the circulatory system; Z85.028 Personal history of other malignant neoplasm of stomach; Z79.4 Long term (current) use of insulin
CPT/HCPCS: 36415; 36416; 71250; 80048; 83605; 83970; 84100; 84484; 85025; 87040; 87070; 87077; 87186; 87205; 87633; 90471; 90682; 93005; 93306; 96365; 96366; 96368; 99406; A4216; G0008; J0456; J0696; J1650; J2920; J7050; J7620; Q2036

== ENCOUNTER 2017-12-10 10:50 | Emergency (ER) | payer MEDICARE ==
[2017-12-10 11:54] LABS: #Eosinphils 0.3 thou/uL (0.0-0.7); #Lymphocytes 1.3 thou/uL (1.20-3.40); #Monocytes 0.7 thou/uL (0.11-0.59); #Neutrophils 6.8 thou/uL (1.40-6.50); %Basophils 0.4 % (0.0-1.0); %Eosinophils 3.6 % (0.0-10.0); %Lymphocytes 14.4 % (21.0-51.0); %Monocytes 7.5 % (0.0-10.0); %Neutrophils 74.1 % (42.0-75.0); Hemoglobin 11.6 g/dL (14.0-18.0); Mean Corpuscular HGB CONC 34.4 g/dL (32.0-36.0); Mean Corpuscular Hemoglobin 31.6 pg (27.0-31.0); Mean Corpuscular Volume 92.1 fl (80.0-94.0); Platelet Count 253 thou/uL (130-400); RBC Distribution Width 13.2 % (11.5-14.5); Red Blood Cell (RBC) Count 3.67 mill/uL (4.70-6.10); White Blood Cell (WBC) Count 9.2 thou/uL (4.8-10.8)
[2017-12-10 12:22] LABS: ALT (SGPT) 7 U/L (8-55); AST (SGOT) 14 U/L (5-34); Albumin 3.9 g/dL (3.5-5.0); Alkaline Phosphatase 93 U/L (40-150); Anion Gap 14 mmol/L (10-20); BUN (Urea Nitrogen) 64 mg/dL (8.4-25.7); Bilirubin, Total 0.3 mg/dL (0.2-1.2); CK (CPK) 278 U/L (30-200); Calc. Creatinine Clearance 0 mL/min (70-130); Calcium 8.9 mg/dL (7.8-10.44); Carbon Dioxide 17 mmol/L (22-29); Chloride 112 mmol/L (98-107); Estimated GFR-MDRD 12; Globulin 3.2 g/dL (2.4-3.5); Glucose 85 mg/dL (70-105); Potassium 4.7 mmol/L (3.5-5.1); Protein, Total 7.1 g/dL (6.0-8.3); Sodium 138 mmol/L (136-145)
[2017-12-10 12:26] LABS: CKMB 1.7 ng/mL (0-6.6); Troponin I Less than 0.010 ng/mL (< 0.028)
--- NOTE | 2017-12-10 13:25 | RAD ---
2 VIEWS OF CHEST: Date: 12/10/17 COMPARISON: 05/05/13. HISTORY: Chest pain. FINDINGS: Two views of the chest show a normal sized cardiomediastinal silhouette. The pacemaker is unchanged i n position. There is no evidence of consolidation, mass, or pleural effusion. IMPRESSION: No evidence of acute cardiopulmonary disease. POS: [facility]
[2017-12-10] MEDS ORDERED: Water For Inject, Bacteriostat 30 ML ONE (13:27)
[2017-12-10] MEDS ORDERED: methylPREDNISolone Sod Succ/PF 125 MG/2 ML VIAL ONE (13:27)
== END 2017-12-10 13:59 | disposition home or self-care (01) ==
LOC: ERS 10:50
DX: J44.1 Chronic obstructive pulmonary disease with (acute) exacerbation (principal); J18.9 Pneumonia, unspecified organism; J44.0 Chronic obstructive pulmonary disease with (acute) lower respiratory infection; E11.9 Type 2 diabetes mellitus without complications; E78.5 Hyperlipidemia, unspecified; I10 Essential (primary) hypertension; M10.9 Gout, unspecified; F17.210 Nicotine dependence, cigarettes, uncomplicated; Z79.84 Long term (current) use of oral hypoglycemic drugs; Z79.899 Other long term (current) drug therapy; Z79.51 Long term (current) use of inhaled steroids
CPT/HCPCS: 36415; 71046; 80053; 82550; 82553; 83880; 84484; 85025; 93005; 94640; 96374; J2930; J7620

== ENCOUNTER 2018-02-09 21:48 | Inpatient (IN) | payer MEDICARE, OTHER ==
[2018-02-09 23:02] LABS: #Basophils 0.1 thou/uL (0.0-0.2); #Eosinphils 0.4 thou/uL (0.0-0.7); #Lymphocytes 1.9 thou/uL (1.20-3.40); #Monocytes 0.7 thou/uL (0.11-0.59); #Neutrophils 5.9 thou/uL (1.40-6.50); %Basophils 0.7 % (0.0-1.0); %Eosinophils 4.7 % (0.0-10.0); %Lymphocytes 21.5 % (21.0-51.0); %Monocytes 7.5 % (0.0-10.0); %Neutrophils 65.6 % (42.0-75.0); Hemoglobin 10.6 g/dL (14.0-18.0); Mean Corpuscular HGB CONC 34.7 g/dL (32.0-36.0); Mean Corpuscular Hemoglobin 31.7 pg (27.0-31.0); Mean Corpuscular Volume 91.4 fL (78.0-98.0); Mean Platelet Volume 6.7 fL (7.4-10.4); Platelet Count 240 thou/uL (130-400); RBC Distribution Width 13.1 % (11.5-14.5); Red Blood Cell (RBC) Count 3.33 mill/uL (4.70-6.10)
[2018-02-09 23:24] LABS: ALT (SGPT) 9 U/L (8-55); AST (SGOT) 13 U/L (5-34); Albumin 3.9 g/dL (3.5-5.0); Alkaline Phosphatase 97 U/L (40-150); Anion Gap 15 mmol/L (10-20); BUN (Urea Nitrogen) 48 mg/dL (8.4-25.7); Bilirubin, Total 0.3 mg/dL (0.2-1.2); Calc. Creatinine Clearance 0 mL/min (70-130); Calcium 9.2 mg/dL (7.8-10.44); Carbon Dioxide 18 mmol/L (22-29); Chloride 111 mmol/L (98-107); Estimated GFR-MDRD 11; Glucose 103 mg/dL (70-105); Protein, Total 6.9 g/dL (6.0-8.3); Sodium 139 mmol/L (136-145)
[2018-02-09 23:35] LABS: CKMB 1.8 ng/mL (0-6.6); Troponin I Less than 0.010 ng/mL (< 0.028)
[2018-02-09 23:44] LABS: Bilirubin Negative (Negative); Blood, Urine Negative (Negative); Clarity CLEAR (Clear); Glucose, Urine (Dipstick) Negative (Negative); Leukocyte Negative (Negative); Nitrite Negative (Negative); Protein, Urine (Dipstick) 100 mg/dL (Neg-Trace); Specific Gravity, Urine 1.011 (1.002-1.036); Urobilinogen 0.2 mg/dL (0.2-1.0); pH, Urine 5.5 (5.0-9.0)
[2018-02-09 23:49] LABS: Bacteria/HPF None Seen HPF (None Seen); Hyaline Casts/LPF 0-3 HYALINE CAST LPF (0-3 Hyaline); RBC/HPF 0-3 HPF (0-3); Squamous Epithelial None Seen HPF (0-3); WBC/HPF None Seen HPF (0-3)
--- NOTE | 2018-02-09 23:57 | RAD ---
PORTABLE AP CHEST X-RAY 02/09/18 HISTORY: Dyspnea. Abnormal laboratory values. COMPARISON: 12/10/17. FINDINGS: Dual lead right subclavian cardiac pacemaking device remains in place. The cardiac silhouette is magn ified by projection but stable in size. There are mild increased linear densities seen at each lung b ase, also present on prior exam, and may be related to areas of mild scarring. The lungs are otherwis e clear. There has been no interval change from the prior exam. IMPRESSION: No acute cardiopulmonary process. POS: [facility]
[2018-02-10 01:24] LABS: Troponin I Less than 0.010 ng/mL (< 0.028)
[2018-02-10] MEDS ORDERED: Sodium Chloride 0.9% 1,000 ML IV SCH (03:00)
[2018-02-10 05:37] LABS: Troponin I 0.022 ng/mL (< 0.028)
--- NOTE | 2018-02-10 09:17 | CON ---
DATE OF CONSULTATION: 02/10/2018 RENAL MEDICINE HISTORY OF PRESENT ILLNESS: Mr. Hodges is a 57-year-old black male with known history of chronic shay al failure and admitted for initiation of dialysis. He was noted to have progressive renal dysfuncti on. He has been referred to surgery for placement of PD catheter. However, the PD catheter could no t be placed until the patient could be cleared by his tractor engine mechanic for the planned surgery. He has a n appointment with Dr. Siegel at the end of this month. However, due to the worsening renal dysfun ction, which I feel are progressive uremic signs and symptoms, he was admitted for further management . REVIEW OF SYSTEMS: Positive for easy fatigability, mild shortness of breath, occasional chest pain, no nausea, no vomiting. Appetite is decreased. Energy level is decreased. No headache, no diplopia , no syncopal episode, no productive cough, no fever or chills, no gross hematuria, no dysuria, no ur inary frequency, no hematochezia, no dysuria, no abdominal pain, no joint pains, no new skin rash. MEDICATIONS: Based on the ER record shows the following; Toprol 50 mg b.i.d., simvastatin 20 mg tab at bedtime, glipizide 5 mg daily, allopurinol 300 mg half a tablet once a daily, fluticasone p.r.n., DuoNeb, albuterol oral inhaler p.r.n. PAST MEDICAL HISTORY: Chronic renal failure secondary to diabetic nephropathy, type 2 diabetes melli tus, gout, longstanding hypertension, hyperlipidemia and coronary artery disease. PAST SURGICAL HISTORY: 1. Status post aneurysmal repair done at [facility]. 2. Status post left knee ACL repair. 3. Status post cardiac catheterization with coronary stent placement. 4. Status post pacemaker placement. ALLERGIES: None. TRAUMA: None. IMMUNIZATIONS: Up to date. HOSPITALIZATIONS: Please see past medical history. SOCIAL HISTORY: The patient lives in [place], he is a , . Status post marijuana use m any years ago. Sedentary lifestyle. FAMILY HISTORY: No family history of ESRD. PHYSICAL EXAMINATION: VITAL SIGNS: Blood pressure is noted at 177/86, heart rate 69, respiratory rate 16, temperature 99, pulse ox 96% on room air. GENERAL: Noted to be awake, supine, comfortable, not in overt distress. SKIN: Adequate turgor. HEENT: He has slightly pale conjunctivae, anicteric sclerae. NECK: No neck mass, no carotid bruits, no JVD. CHEST: No deformities. LUNGS: Clear breath sounds, no wheezing, no crackles. HEART: Normal sinus rhythm. No murmurs, no gallops, no rubs. ABDOMEN: Globular, soft, nontender, no masses. EXTREMITIES: No edema, no deformities. LABORATORY DATA: Laboratories of 02/09/2018; white count 9, hemoglobin 10.6. Sodium 139, potassium 111, carbon dioxide 18, BUN 48, creatinine 6.37, GFR 11 mL per minute. Calcium 9.2, albumin 3.9, tro ponin I 0.022. IMAGING DATA: Chest x-ray, no CHF. ASSESSMENT AND PLAN: 1. Chronic renal failure secondary to diabetic nephropathy/hypertensive nephropathy - patient's GFR is noted at 11 mL per minute. I feel that he is clinically uremic. For this reason, we will initiat e dialysis. I will be consulting Surgery for placement of a cuffed hemodialysis catheter as well as a PD catheter. The patient is preparing to do peritoneal dialysis. He has already been evaluated in itially by a [place] renal transplant program. 2. Hypertension. Continue current blood pressure. 3. Coronary artery disease - surgery is requesting for cardiac clearance prior to the said PD cathet er placement. I will be consulting his tractor engine mechanic, Dr. Siegel. 4. Borderline anemia. We will continue to observe. I would suggest recheck base met and CBC, intac t PTH and phosphorus in a.m. Overall, agree with current management.
[2018-02-10] MEDS ORDERED: Tuberculin PPD 0.1 ML VIAL I-DERMAL ONE (09:45)
[2018-02-10 10:37] LABS: Hep C IgG Ab Non-Reactive (NonReactive); Hep C Index 0.15 S/CO (0-0.79)
[2018-02-10] MEDS: Sodium Chloride 0.9% 1,000 ML IV SCH ×2 (11:50→21:16)
[2018-02-10] MEDS ORDERED: Ondansetron HCl/PF 4 MG/2 ML Vial IVP PRN (18:07)
[2018-02-10] MEDS ORDERED: Dextrose 5% in Water 1,000 ML IV PRN (18:07)
[2018-02-10] MEDS ORDERED: cloNIDine 0.1 MG TAB PO PRN (18:07)
[2018-02-10] MEDS ORDERED: HumaLOG 300 UNITS/3 ML VIAL SC PRN ×2 (18:07)
[2018-02-10] MEDS ORDERED: Ondansetron ODT 4 MG TAB PO PRN (18:07)
[2018-02-10] MEDS ORDERED: Acetaminophen 500 MG TAB PO PRN (18:07)
[2018-02-10] MEDS ORDERED: Nitroglycerin 0.4 MG TAB (25 Tab Bottle) SL PRN (18:07)
[2018-02-10] MEDS ORDERED: hydrALAZINE 20 MG/ML VIAL SLOW IVP PRN (18:07)
[2018-02-10] MEDS ORDERED: Dextrose 50% Abboject 50 ML SYRINGE SLOW IVP PRN (18:07)
--- NOTE | 2018-02-10 21:14 | HP ---
DATE OF ADMISSION: 02/10/2018 PRIMARY CARE PROVIDER: Dr. Gandara with [facility] in [place], [place]. CHIEF COMPLAINT: Shortness of breath and abnormal labs. HISTORY OF PRESENT ILLNESS: This is a 57-year-old male who presents to [facility] Emergency Department after apparent increasing creatinine in the context of chronic kidney di sease. The patient apparently was referred to the emergency room for further workup and likely initi ation of dialysis with worsening renal function. The patient with longstanding chronic kidney diseas e progressing to end-stage status. The patient also admitted to some increased shortness of breath, worse with ambulation over the last 4 days prior to arrival. The patient admitted some chest tightne ss. No left arm or jaw pain. The patient denied any specific increased swelling of the lower extrem ities. No history of cough, fever or exposure history. The patient does admit to history of coronar y artery disease undergoing PCI to the right coronary artery. The patient also states history of com plete heart block, status post pacemaker placement. In the emergency room, the patient underwent gen eral evaluation and was treated with aspirin 162 mg x1 dose. The patient was transferred to the tele metry unit for further evaluation. PAST MEDICAL HISTORY: 1. Chronic obstructive pulmonary disease. 2. Chronic kidney disease stage 5-6. 3. Tobacco abuse. 4. Coronary artery disease. 5. Diabetes mellitus type 2 with diabetic nephropathy. 6. Hypertension. 7. Complete heart block, status post pacemaker placement. 8. History of abdominal aneurysm. PAST SURGICAL HISTORY: 1. Status post left knee arthroscopy with ACL repair. 2. Status post back surgery. 3. Status post cardiac catheterization with percutaneous coronary intervention in the right coronary artery. 4. Status post pacemaker placement. CURRENT MEDICATIONS: 1. Allopurinol 150 mg p.o. daily. 2. Aspirin 325 mg p.o. daily. 3. Glipizide 2.5 mg p.o. b.i.d. 4. Metoprolol 25 mg p.o. b.i.d. 5. Nitroglycerin 0.4 mg sublingually p.r.n. chest pain. 6. Simvastatin 20 mg p.o. at bedtime. ALLERGIES: No known drug allergies. FAMILY HISTORY: Mother of a brain aneurysm. Father of complications of stomach cancer at age of 62. SOCIAL HISTORY: Smokes up to a half a pack of cigarettes daily. No alcohol use. No illicit drug us e. Former cocaine and marijuana use, none over the last 15 plus years. Resides in [place], [place]. REVIEW OF SYSTEMS: The following complete review of systems was negative, unless otherwise mentioned in the HPI or below: Constitutional: Weight loss or gain, ability to conduct usual activities. Skin: Rash, itching. Eyes: Double vision, pain. ENT/Mouth: Nose bleeding, neck stiffness, pain, tenderness. Cardiovascular: Palpitations, dyspnea on exertion, orthopnea. Respiratory: Shortness of breath, wheezing, cough, hemoptysis, fever or night sweats. Gastrointestinal: Poor appetite, abdominal pain, heartburn, nausea, vomiting, constipation, or diarrhea. Genitourinary: Urgency, frequency, dysuria, nocturia. Musculoskeletal: Pain, swelling. Neurologic/Psychiatric: Anxiety, depression. Allergy/Immunologic: Skin rash, bleeding tendency. PHYSICAL EXAMINATION: VITAL SIGNS: On admission, blood pressure 154/81, pulse 75, respiratory rate 20, temperature 98 degr ees Fahrenheit, O2 saturation 99% on room air. GENERAL APPEARANCE: This is a 57-year-old male, alert and oriented x3, pleasant, co nversant, in no acute distress. HEENT: Pupils are equal, round, and reactive to light and accommodation. Extraocular muscles are in tact. No scleral icterus, no conjunctival injection. Nares patent. OP is clear. Teeth in fair rep air. NECK: Supple, no cervical adenopathy, no thyromegaly, no carotid bruits, no JVD appreciated. Cervic al spine with full active and passive range of motion. No meningeal signs appreciated. CHEST: Lungs are clear to auscultation bilaterally. CARDIOVASCULAR: S1, S2 with a 2/6 systolic ejection murmur loudest in the right upper sternal border . ABDOMEN: Rounded, soft, nontender, nondistended. Bowel sounds are positive in all four quadrants. There is no hepatosplenomegaly, no abdominal bruits, no rebound or guarding appreciated. EXTREMITIES: Warm and dry with fair turgor. No clubbing, cyanosis or asymmetric edema appreciated. Pulses palpable distally at the dorsalis pedis, posterior tibial, and popliteal arteries bilaterally . Capillary refill less than 2 seconds. NEUROLOGIC: Cranial nerves II-XII are grossly intact. No focal or lateralizing signs appreciated. PERTINENT LABORATORY AND X-RAY FINDINGS: Sodium 139, potassium 5.0, chloride 111, CO2 of 18, anion g ap 15, BUN 48, creatinine 6.37, estimated GFR of 11, glucose 103, calcium 9.2. LFTs within normal li mits. Troponin I negative x3. BNP 30. CBC showed a white blood cell count of 9.0, hemoglobin 11, h ematocrit 31, platelet count 240 with normal differential. Urinalysis positive for protein. Hepatit is C antibody nonreactive on 02/09/2018. Portable chest x-ray dated 02/09/2018 showed no acute cardi opulmonary process. EKG dated 02/10/2018, by my interpretation shows a ventricular paced rhythm in t he 60s. No acute process identified. ASSESSMENT AND PLAN: 1. End-stage renal disease. The patient will be admitted to the telemetry unit. Consult Nephrology Service. The patient will be evaluated for placement of tunneled hemodialysis catheter in addition to peritoneal dialysis catheter. Continue intravenous normal saline at 75 mL per hour. No acute vol ume overload noted clinically. Case management consult for assessment for coordination of outpatient hemodialysis. 2. Diabetes mellitus type 2. Stable currently. Continue glipizide 2.5 mg p.o. b.i.d. Insulin slid ing scale for reflexive coverage. ADA diet. 3. Hypertension. Continue metoprolol 25 mg b.i.d. and monitor serial blood pressures. 4. Coronary artery disease. Chronic and stable. No evidence to suggest acute coronary syndrome. C ontinue aspirin 325 mg daily. Continue simvastatin 20 mg at bedtime. 5. Prophylaxis. Sequential compression devices while in bed. Pepcid 20 mg p.o. b.i.d. 6. Code status is FULL. Surrogate medical decision maker is patient's spouse.
[2018-02-10] MEDS: Simvastatin 20 MG TAB PO SCH (21:16)
[2018-02-10] MEDS: Famotidine 20 MG TAB PO SCH (21:16)
[2018-02-10] MEDS: Metoprolol Tartrate 25 MG TAB PO SCH (21:16)
--- NOTE | 2018-02-10 22:00 | CON-2 ---
DATE OF CONSULTATION: 02/10/2018 I am dictating consult note for Dr. Theresa Andersen M.D., with Cardiology. REASON FOR CONSULTATION: Dialysis shunt, surgical clearance. HISTORY OF PRESENT ILLNESS: Mr. Hodges is a 57-year-old black male with known history of chronic shay al failure and admitted for initiation of dialysis, has been referred to surgery for placement of PD catheter. He has seen Dr. Siegel in the past and sees a Cardiology with the [facility], recently saw them over a year ago. The patient reports that he has not had any recent echo or stress test. Denies any recent chest pain. Does report getting short of breath, but states the shortness of breath comes af ter a long time over 30 minutes in his yard, does not get immediately short of breath. No chest pain radiating down his arm. Denies getting dizzy or lightheaded, any vision changes. Denies any palpit ations, syncope or near syncope. Denies any edema. REVIEW OF SYSTEMS: Does have shortness of breath, but again after long bouts with activity. Denies any chest pain, no nausea, no vomiting. Denies any headache, syncopal episode. No productive cough, no fever, chills, gross hematuria. No urinary symptoms. Denies any abdominal pain, joint pains or rashes. PAST MEDICAL HISTORY: 1. Diabetes. 2. Dyslipidemia. 3. Hypertension. 4. Tobacco abuse, cigarettes, recently quit though. 5. Chronic renal failure secondary to diabetic nephropathy. 6. Gout. 7. History of coronary artery disease. 8. Complete heart block, now pacemaker in place. 9. Coronary stent placement BMS, RCA in 2009. PAST SURGICAL HISTORY: 1. Status post aneurysmal repair, possible aneurysmal repair done at [facility]. 2. Status post left knee ACL repair. 3. Status post cardiac catheterization with coronary artery stent placement in 2009. 4. Status post pacemaker placement. ALLERGIES: No known drug allergies. FAMILY HISTORY: There is a family history of coronary artery disease. SOCIAL HISTORY: The patient says he recently quit smoking a week ago, smoked for 30+ years a pack pe r day. He drinks alcohol use on occasion. Status post marijuana use many years ago. 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 PHYSICAL EXAMINATION: VITAL SIGNS: Temperature is 98.0, pulse is 75, respirations 20, O2 sat is 99% on room air, blood pre ssure 154/81. GENERAL: He is alert and oriented, no acute distress. SKIN: Adequate turgor. No edema noted. HEENT: Has slightly pale conjunctivae. Atraumatic, normocephalic. NECK: No neck mass. No carotid bruits. No JVD noted. CHEST: No deformities, symmetric chest rise. LUNGS: Clear breath sounds bilaterally, no wheezing, no crackles, no rales. CARDIOVASCULAR: Regular rate and rhythm. No murmurs, no gallops, no rubs. ABDOMEN: Soft, nontender, no masses. Bowel sounds heard in all 4 quadrants. EXTREMITIES: No edema, no deformities. NEUROLOGIC: No focal neuro deficit noted. LABORATORY DATA: White blood cell count 7.0, hemoglobin 7.6, hematocrit 30.5, platelet count is 240. Sodium is 139, potassium 5.0, chloride 111, carbon dioxide 18, BUN 48, creatinine 6.37, glucose is 103, calcium is 9.2. CK-MB was 1.8. Troponins were less than 0.01 and then 0.022. BNP was 29.7. H epatitis C was nonreactive. IMAGING: Chest x-ray showed no acute cardiopulmonary process. EKG showed normal sinus rhythm, showe d ventricular pacing. ASSESSMENT: This is a 57-year-old male here for dialysis initiation and shunt placement, has signifi cant history for a longstanding hypertension, diabetes, dyslipidemia, coronary stent placement in 201 0, pacemaker insertion due to complete heart block. PLAN: At this time, the patient would be fine for shunt placement from a cardiac standpoint. He delgadillo s get short of breath, but it is after long periods of exercise, not concerning for chest pain at thi s time, more likely due to his smoking. We would like to get records on his aneurysm repair from [facility]. We will try to obtain them at this time.
[2018-02-11 05:41] LABS: #Basophils 0.1 thou/uL (0.0-0.2); #Eosinphils 0.5 thou/uL (0.0-0.7); #Lymphocytes 1.8 thou/uL (1.20-3.40); #Monocytes 0.7 thou/uL (0.11-0.59); #Neutrophils 5.2 thou/uL (1.40-6.50); %Basophils 0.8 % (0.0-1.0); %Eosinophils 6.2 % (0.0-10.0); %Lymphocytes 21.6 % (21.0-51.0); %Monocytes 8.2 % (0.0-10.0); %Neutrophils 63.2 % (42.0-75.0); Hemoglobin 10.4 g/dL (14.0-18.0); Mean Corpuscular HGB CONC 33.3 g/dL (32.0-36.0); Mean Corpuscular Hemoglobin 30.9 pg (27.0-31.0); Mean Platelet Volume 7.2 fL (7.4-10.4); Platelet Count 226 thou/uL (130-400); RBC Distribution Width 13.1 % (11.5-14.5); Red Blood Cell (RBC) Count 3.36 mill/uL (4.70-6.10); White Blood Cell (WBC) Count 8.2 thou/uL (4.8-10.8)
[2018-02-11 05:54] LABS: Anion Gap 15 mmol/L (10-20); BUN (Urea Nitrogen) 44 mg/dL (8.4-25.7); Calc. Creatinine Clearance 21 mL/min (70-130); Calcium 8.9 mg/dL (7.8-10.44); Carbon Dioxide 14 mmol/L (22-29); Chloride 115 mmol/L (98-107); Estimated GFR-MDRD 13; Glucose 94 mg/dL (70-105); Phosphorus 5.4 mg/dL (2.3-4.7); Potassium 5.5 mmol/L (3.5-5.1); Sodium 138 mmol/L (136-145)
--- NOTE | 2018-02-11 07:12 | PRG ---
DATE OF SERVICE: 02/11/2018 SUBJECTIVE: Mr. Hodges is a 57-year-old black male with chronic renal failure who was admitted for c linical signs of uremia. Hemodialysis to be initiated with this hospitalization. We are currently a waiting cardiac clearance for placement of a PD catheter. For the moment, we will be requesting the surgeon to put a temporary femoral dialysis catheter so we could initiate hemodialysis with this siri ent. He still feels tired, has some nausea; however, denies any chest pain or shortness of breath. PHYSICAL EXAMINATION: VITAL SIGNS: Blood pressure 166/80, heart rate 95, respiratory rate 20, temperature 97.9, pulse ox 9 8%. GENERAL: Awake, supine, comfortable, not in distress. SKIN: Adequate turgor. HEENT: He has slightly pale conjunctivae, anicteric sclerae. NECK: No neck mass, no carotid bruits, no JVD. CHEST: No deformities. LUNGS: Clear breath sounds. HEART: Normal sinus rhythm. No murmur, no gallops, no rubs. ABDOMEN: Globular, soft, nontender, no masses. EXTREMITIES: No edema, no deformities. MEDICATIONS: 02/11/2018 - Reviewed. LABORATORY DATA: 02/11/2018 - Sodium 138, potassium 5.5, chloride 115, carbon dioxide 14, BUN 44, cr eatinine 5.36, GFR 13 mL per minute, phosphorus 5.4, PTH 1066, white count 8.2, hemoglobin 10.4. ASSESSMENT AND PLAN: 1. Chronic renal failure from diabetic/hypertensive nephropathy. We will initiate dialysis once the femoral dialysis catheter has been placed. The plan is to have a PD catheter placed and a cuffed di alysis catheter this coming Wednesday after clearance from Cardiology. We are still awaiting cardiology clearance. 2. Borderline anemia. Continue to observe. 3. Hyperphosphatemia. Start Renvela 800 mg 1 tab t.i.d. 4. Secondary hyperparathyroidism, calcitriol 0.25 mcg tab every day. I agree with current management. Recheck CBC in a.m.
--- NOTE | 2018-02-11 07:58 | ADD-CON ---
DATE OF CONSULTATION: 02/10/2018 ADDENDUM Please refer to the dictation already dictated by the resident, Monica. This is a 53-year-old gentle man that was seen many years ago by Dr. Siegel. He was last seen in the office in 2013. He appare ntly underwent an angioplasty and stent placement to the right coronary artery in 2009. He has since been followed by the [facility] and at [place]. Otherwise, he denies any subsequent cardiac problems. He apparently did have some type of intervention about a year ago which may have been a vascular in tervention to the right side, possibly a right iliac stenosis, unclear. The patient's uncertain. Th is was performed in [place]. He does have risk factors of coronary artery disease which include diabe justyn, dyslipidemia, hypertension, tobacco abuse. He apparently just recently stopped smoking, but we were asked to see him as a preop evaluation prior to undergoing a dialysis catheter placement due to his chronic renal disease which is now becoming end-stage. He is able to work on a routine basis. 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 He does weeding and he denies any symptoms except occasionally he does get some fatigue and he rests for a while, but he denies chest p ain or any significant diaphoresis or other symptoms associated that would indicate he has underlying ischemia. He has not had a recent stress test or echo that we are aware of, but for the amount of w ork that he is doing, I believe the workload will be more than sufficient for the patient to undergo the dialysis catheter placement. In the future if he has not had a recent stress test or echocardiog ever then I would advise this, we will also try to seek the records from [place] to see exactly what ki nd of procedure was performed on the right arterial side. Otherwise, he is stable from a cardiac sta ndpoint. His vital signs are stable. His blood pressure was 154/81, earlier was 130/70, heart rates in the 70s and shows a sinus rhythm. He has had a pacemaker insertion. Also in the last time the p acemaker was interrogated, but on the monitor he has atrial sensing and ventricular pacing. His hear t rates in the 70s, respiratory rate was 20. He is afebrile. HEENT: Unremarkable. CHEST: Clear to auscultation. There were no rales, rhonchi or wheezing. He did have some slight ra les until he had some deep coughs and then they resolved. CARDIOVASCULAR: Exam revealed a regular rate and rhythm and did not hear any significant murmurs, he aves, thrills, bruits or rubs. ABDOMEN: Soft and nontender. EXTREMITIES: Show no significant clubbing, cyanosis or edema. Pedal pulses are present. NEUROLOGIC: The patient was intact. SKIN: Warm and dry. His laboratory data is as mentioned by the resident. His creatinine has continued to increase. Othe rwise, cardiac enzymes are negative. At this time, we will continue to monitor the patient with you, but he should be a reasonable candidate to proceed with his dialysis catheter placement. We will ob tain the records and will add these to the chart when available. We also could obtain echocardiogram if one has not been performed recently, but this would not necessarily have to be performed prior to the surgical procedure.
[2018-02-11] MEDS: Calcitriol 0.25 MCG CAP PO SCH (08:12)
[2018-02-11] MEDS: Sevelamer Carbonate 800 MG TAB PO SCH ×3 (08:12→20:13)
[2018-02-11] MEDS: glipiZIDE 5 MG TAB PO SCH ×2 (08:12→20:12)
[2018-02-11] MEDS: Aspirin 325 mg Enteric Coated Tablet PO SCH (08:13)
[2018-02-11] MEDS: Metoprolol Tartrate 25 MG TAB PO SCH ×2 (08:13→21:57)
[2018-02-11] MEDS: Allopurinol 300 MG TAB PO SCH (08:13)
--- NOTE | 2018-02-11 09:21 | PDOC.CTH ---
<Caitlyn Lee - Last Filed: 02/11/18 09:31> Cardiology Progress Note - Subjective The pt seen and examined. No overnight events. No cardiac complaints. - Objective Vital Signs Temp Pulse Resp BP Pulse Ox 02/11/18 08:00 99.5 F 95 16 158/91 H 100 02/11/18 03:51 97.9 F 95 20 166/80 H 98 02/10/18 23:16 98.5 F 76 20 145/75 H 97 Admit Weight 217 lb 12.8 oz Weight 217 lb 12.8 oz 02/10/18 02/11/18 02/12/18 06:59 06:59 06:59 Intake Total 2300 Output Total 1800 Balance 500 - Physical Examination General/Neuro: alert & oriented x3 Neck: no JVD present Lungs: CTA Heart: RRR Abdomen: soft Extremities: other: (No edema) - Telemetry Telemetry Rhythm: AV paced 60s - Labs Result Diagrams: 02/11/18 04:25 02/11/18 04:25 Troponin/CKMB CK-MB (CK-2) 1.8 ng/mL (0-6.6) 02/09/18 22:52 Troponin I 0.022 ng/mL (< 0.028) 02/10/18 04:46 - Assessment/Plan 1. CAD with hx of stent in RCA in 2010 - Stable with ASA, BBlocker, and Statin; not on NATHAN/ARE due to hx of CKD 2. CKD - Plan for PD and tricath placement today; managed by Dr Gonzalez 3. HTN - will manage after procedure done. 4. Hyperlipidemia - on Statin 5. PM placement - AV pacing; cont. to monitor on tele 6. S/p AA repair in 2016 at [facility] - 7. Ex- smoker, quit a few wks ago - smoking cessation education given MAR reviewed * Per Dr Andersen' note, the pt is cleared for PD and tricath placement. * Echo result is pending at this time. 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
[2018-02-11] MEDS ORDERED: CEFAZOLIN/Water 2 GM/20 ML SYRINGE SLOW IVP SCH (09:45)
[2018-02-11] MEDS ORDERED: Heparin 1,000 UNITS/ML VIAL ONE (11:11)
--- NOTE | 2018-02-11 11:32 | PDOC.PN ---
- Subjective Encounter Start Date: 02/11/18 Encounter Start Time: 11:29 Mr. Hodges was seen today in follow-up of worsening renal function. He does not have any complaints. He denies chest pain or shortness of breath. - Objective Resuscitation Status: Resuscitation Status FULL:Full Resuscitation MAR Reviewed: Yes Vital Signs & Weight: Vital Signs (12 hours) Temp Pulse Resp BP Pulse Ox 02/11/18 08:10 99.5 F 95 16 100 02/11/18 08:00 99.5 F 95 16 158/91 H 100 02/11/18 03:51 97.9 F 95 20 166/80 H 98 Weight Admit Weight 217 lb 12.8 oz Weight 217 lb 12.8 oz I&O: 02/10/18 02/11/18 02/12/18 06:59 06:59 06:59 Intake Total 2300 Output Total 1800 Balance 500 Result Diagrams: 02/11/18 04:25 02/11/18 04:25 Additional Labs: Accuchecks 02/11/18 02/11/18 02/10/18 10:40 05:17 20:32 POC Glucose 79 113 H 168 H 02/10/18 18:16 POC Glucose 117 H Phys Exam - Physical Examination HEENT: PERRLA Respiratory: no wheezing, no rales, no rhonchi, clear to auscultation bilateral Cardiovascular: RRR, no significant murmur, no rub Gastrointestinal: soft, non-tender, no distention, positive bowel sounds Musculoskeletal: no edema Dx/Plan (1) End stage renal disease Code(s): N18.6 - END STAGE RENAL DISEASE Status: Acute (2) CAD (coronary artery disease) Code(s): I25.10 - ATHSCL HEART DISEASE OF [place] CORONARY ARTERY W/O ANG PCTRS Status: Chronic Qualifiers: Comment: chronic, stable (3) DM type 2 (diabetes mellitus, type 2) Status: Chronic Qualifiers: Comment: Continue Glipizide 5mg daily, ISS (4) HTN (hypertension) Code(s): I10 - ESSENTIAL (PRIMARY) HYPERTENSION Status: Chronic Qualifiers: Comment: Stable, continue current regimen - Plan * Mr. Hodges has developed ESRD- plan is for PD dialysis catheter placement today. * HTN- blood pressure is stable * DM- blood glucose is stable
[2018-02-11] MEDS: Sodium Chloride 0.9% 1,000 ML IV SCH (13:06)
[2018-02-11] MEDS ORDERED: Fentanyl 100 MCG/2 ML VIAL ONE (13:45)
[2018-02-11] MEDS ORDERED: Heparin 10,000 UNITS/1 ML VIAL ONE (13:49)
[2018-02-11] MEDS ORDERED: Bupivacaine 0.25% HCL 30 ML VIAL ONE (13:49)
[2018-02-11] MEDS ORDERED: Sodium Chloride 0.9% 0 ML ONE (13:49)
[2018-02-11] MEDS ORDERED: Lidocaine 2% 10 ML INJ ONE (13:49)
[2018-02-11] MEDS ORDERED: Bupivacaine/Epinephrine 0.25% 30 ML VIAL ONE (13:50)
[2018-02-11 13:51] LABS: HBSAB Concentration 1.86 mIU/mL; HBSAg Index 0.13 S/CO (0-0.99); Hep B Core Total Ab Non-Reactive (NonReactive); Hep B Core Total Index 0.07 S/CO (0-0.79); Hep B Surf AB Non-Reactive (NonReactive); Hep B Surf Ag Non-Reactive S/CO (NonReactive); Hep C IgG Ab Non-Reactive (NonReactive); Hep C Index 0.14 S/CO (0-0.79)
[2018-02-11] MEDS ORDERED: CEFAZOLIN/Water 2 GM/20 ML SYRINGE ONE (14:04)
[2018-02-11] MEDS ORDERED: ePHEDrine/0.9% NaCl/PF SYRINGE 50 mg/10 ml ONE (14:57)
[2018-02-11] MEDS ORDERED: Lidocaine 1% PF 5 ML VIAL ONE (14:57)
[2018-02-11] MEDS ORDERED: PROPOFOL 200 MG/20 ML VIAL ONE (14:57)
[2018-02-11] MEDS ORDERED: Labetalol 100 MG/20 ML MDV ONE (14:57)
[2018-02-11] MEDS ORDERED: PHENYLEPHRINE-NS 100 MCG/ML 10 ML SYRINGE ONE (14:57)
[2018-02-11] MEDS ORDERED: SUGAMMADEX SODIUM 500 MG/5 ML VIAL ONE (15:48)
[2018-02-11] MEDS ORDERED: traMADol HCl 50 MG TAB PO PRN ×2 (16:17→16:18)
[2018-02-11] MEDS ORDERED: HYDROcodone/Acetaminophen 7.5/325 mg Tablet PO PRN (16:17)
--- NOTE | 2018-02-11 16:34 | RAD ---
CHEST ONE VIEW: 02/11/18 HISTORY: Hemodialysis catheter placement. COMPARISON: Chest radiograph 02/09/18. FINDINGS: A hemodialysis catheter has been placed with tip at the superior to mid SVC. There appears to be an a bnormal outline of the right hemidiaphragm. Low grade volume overload. Subcutaneous emphysema along the left hemithorax. No pneumothorax. IMPRESSION: 1. Hemodialysis catheter tip at the mid to inferior SVC. 2. Abnormal curvilinear hypodense focus along the inferior right hemidiaphragm. This may reflect interposition of bowel although not seen on the prior examination. Free intraperitoneal gas cannot b e totally excluded. Abdomen radiographs recommended. Code T POS: SJ
--- NOTE | 2018-02-11 18:32 | PDOC.OP ---
Operative Note - Operative Note Operative Note: PROCEDURE: Placement of left internal jugular tunneled hemodialysis catheter with ultrasound and fluoroscopic guidance, and laparoscopic peritoneal dialysis catheter placement. SURGEON: Claudio Capone M.D. DATE OF PROCEDURE: 02/11/2018 PREOPERATIVE DIAGNOSIS: Worsening renal failure. POSTOPERATIVE DIAGNOSIS: Worsening renal failure. HISTORY: Patient with chronic renal failure with imminent need for dialysis. A peritoneal dialysis catheter had been requested but cardiology clearance was still pending. He had worsening renal failure with uremic symptoms that he was admitted to the hospital for institution of dialysis, and cardiac clearance was obtained. A tunneled hemodialysis catheter for immediate dialysis and peritoneal catheter placement for ongoing dialysis has been requested by the patients estate conservator. PROCEDURE: After informed consent was obtained and appropriate preoperative antibiotics were administered, the patient was taken to the Operating Room, placed in the supine position and monitored anesthesia care was administered. The neck and chest were prepped and draped in a standard sterile fashion and the patient placed in Trendelenburg position. A sterile ultrasound probe was used to identify the patent compressible right IJ vein which was accessed under direct ultrasound guidance. A wire was threaded through the needle and confirmed by ultrasound to be within the patent compressible vessel with the tip in the vena cava by fluoroscopy. Local anesthesia was infused to the skin and subcutaneous tissues of the right neck and chest. An infraclavicular incision was made and a catheter tunneled from the infraclavicular to the right IJ access site. The right IJ was sequentially dilated over the wire following which a dilator and sheath were placed over the wire and the dilator and wire removed leaving the sheath in place. The catheter was tunneled through the sheath which was then split and removed leaving the catheter in place. This was confirmed by fluoroscopy to be in good position in the superior vena cava with no kinking of the course of the catheter. Both ports easily aspirated dark venous nonpulsatile blood and easily flushed without resistance. Heparin was instilled to the quantity specified on the hub, and the hub was secured to the skin with 3-0 nylon sutures. The skin incision at the neck was closed in two layers with 4-0 Monocryl suture and Dermabond dressings were placed. The skin at the exit site was snugged up around the catheter with 4-0 Monocryl suture and Dermabond was placed there as well. Once the Dermabond was dry, a Biopatch and Tegaderm dressing was placed at the exit site. Attention was then turned to laparoscopic peritoneal dialysis catheter placement. The abdomen was prepped and draped in standard sterile fashion and local anesthesia was infused the skin and subcutaneous tissues of level of the umbilicus. A transverse skin incision was made and the fascia was elevated. A Veress needle was placed into the abdominal cavity and carbon dioxide gas insufflated. Opening pressure was less than 5 and carbon dioxide gas easily insufflated to an intra-abdominal pressure 15 which the patient tolerated well. The Veress needle was withdrawn and a [place] port advanced under direct laparoscopic vision into the abdominal cavity which was carefully examined. There was no evidence of Veress needle or of trocar injury. There were no significant adhesions in the abdominal cavity. Local anesthesia was infused to the skin and subcutaneous tissues at the right lateral location and a trocar was placed at that location. The patient was placed in Trendelenburg and the small intestine easily was drawn up out of the pelvis. The patient was noted to have a deep sulcus adjacent to the rectum suitable for placement of the catheter and the omentum did not seem to reach down to the pelvis. The inferior edge of the posterior rectus sheath was identified and local anesthesia infused the skin and subcutaneous tissues overlying this location. An 8 mm trocar was tunneled superiorly medially and then down through the posterior rectus sheath near its inferior edge and the peritoneal dialysis catheter advanced through the trocar. The catheter was held in place with the inner cuff just inside the rectus sheath as the trocar was withdrawn. The end of the catheter was placed down into the rectal cul-de-sac and saline infused into the abdominal cavity. The catheter was placed to gravity and easily drained the fluid. The right upper lateral trocar was then withdrawn and a 0 Vicryl suture on a GraNee needle used to close the fascial incision. The suture was placed but not tied down at this point. The trocar was then replaced at the right lateral location and the umbilical trocar withdrawn and the fascia closed at that location with a 0 Vicryl suture on a GraNee needle. This was secured and hemostasis verified. Carbon dioxide was allowed to desufflate through the right lateral trocar which was then withdrawn and the previously placed suture secured. The skin incisions were then closed with 4-0 subcuticular Monocryl sutures and Dermabond placed. The peritoneal dialysis catheter was positioned with the external cuff in the subcutaneous tissues and the skin was snugged up around the peritoneal dialysis catheter exit site with 4-0 subcuticular Monocryl sutures and Dermabond placed there as well. Once the Dermabond was dry a gauze and Tegaderm dressing was placed to the external portion of the peritoneal dialysis catheter and the patient was extubated and taken to the recovery room in good condition. Estimated blood loss was minimal. There were no complications. There were no specimens.
[2018-02-11] MEDS: Famotidine 20 MG TAB PO SCH (21:57)
[2018-02-11] MEDS: Simvastatin 20 MG TAB PO SCH (21:57)
[2018-02-11] MEDS: HYDROcodone/Acetaminophen 7.5/325 mg Tablet PO PRN (21:58)
[2018-02-12 05:23] LABS: #Eosinphils 0.3 thou/uL (0.0-0.7); #Lymphocytes 1.6 thou/uL (1.20-3.40); #Monocytes 0.6 thou/uL (0.11-0.59); #Neutrophils 6.3 thou/uL (1.40-6.50); %Basophils 0.4 % (0.0-1.0); %Eosinophils 3.7 % (0.0-10.0); %Lymphocytes 17.9 % (21.0-51.0); %Monocytes 7.1 % (0.0-10.0); %Neutrophils 70.9 % (42.0-75.0); Hemoglobin 10.4 g/dL (14.0-18.0); Mean Corpuscular HGB CONC 33.9 g/dL (32.0-36.0); Mean Corpuscular Volume 91.4 fL (78.0-98.0); Mean Platelet Volume 7.6 fL (7.4-10.4); Platelet Count 223 thou/uL (130-400); RBC Distribution Width 13.2 % (11.5-14.5); Red Blood Cell (RBC) Count 3.36 mill/uL (4.70-6.10); White Blood Cell (WBC) Count 8.9 thou/uL (4.8-10.8)
[2018-02-12 05:37] LABS: Anion Gap 16 mmol/L (10-20); BUN (Urea Nitrogen) 40 mg/dL (8.4-25.7); Calc. Creatinine Clearance 19 mL/min (70-130); Calcium 8.7 mg/dL (7.8-10.44); Carbon Dioxide 18 mmol/L (22-29); Chloride 109 mmol/L (98-107); Estimated GFR-MDRD 12; Glucose 90 mg/dL (70-105); Sodium 138 mmol/L (136-145)
[2018-02-12] MEDS: Sodium Chloride 0.9% 1,000 ML IV SCH (06:44)
[2018-02-12] MEDS: glipiZIDE 5 MG TAB PO SCH ×2 (08:03→17:07)
[2018-02-12] MEDS: Sevelamer Carbonate 800 MG TAB PO SCH ×3 (08:03→17:09)
--- NOTE | 2018-02-12 10:13 | PRG ---
DATE OF SERVICE: 02/12/2018 SERVICE: Renal Medicine. SUBJECTIVE: Mr. Hodges is a 57-year-old black male who was admitted for uremic signs and symptoms. Hemodialysis has been initiated. A cuffed hemodialysis catheter with PD catheter placement was done by Dr. Capone. No new complaints today. I am at the bedside supervising his dialysis. PHYSICAL EXAMINATION: VITAL SIGNS: Blood pressure this 157/85, heart rate 67, respiratory rate 20, temperature 98, pulse o x 100%. GENERAL: Awake, alert, comfortable, not in overt distress. SKIN: Adequate turgor. HEENT: He has pinkish conjunctivae, anicteric sclerae. NECK: No neck mass, no carotid bruits, no JVD. CHEST: No deformities. LUNGS: Clear breath sounds. HEART: Normal sinus rhythm. No murmur, no gallops, no rubs. ABDOMEN: Globular, soft, nontender, no masses. EXTREMITIES: No edema, no deformities. MEDICATIONS: Of 02/12/2018 was reviewed. LABORATORY DATA: Of 02/12/2018, sodium 138, potassium 5, chloride 109, carbon dioxide 18, BUN 40, cr eatinine 5.75, calcium 8.7. Of 02/11/2018, PTH 1066. White count 8.9, hemoglobin 10.4. ASSESSMENT AND PLAN: 1. End-stage renal disease - currently tolerating dialysis. I plan to do a 2-hour hemodialysis toda y and another 3-hour hemodialysis in a.m. Fluid removal only as tolerated by the patient. 2. Borderline anemia. Continue to observe. 3. Hyperphosphatemia, started on Renvela. 4. Secondary hyperparathyroidism, on calcitriol - awaiting outpatient dialysis placement with this p atient. He has already been seen by Abigail at [place] for admission. Recheck base met and CBC in a.m.
[2018-02-12] MEDS ORDERED: Heparin 1,000 UNITS/ML VIAL ONE (11:11)
[2018-02-12] MEDS: Metoprolol Tartrate 25 MG TAB PO SCH ×2 (12:12→20:23)
[2018-02-12] MEDS: Aspirin 325 mg Enteric Coated Tablet PO SCH (12:13)
[2018-02-12] MEDS: Allopurinol 300 MG TAB PO SCH (12:13)
[2018-02-12] MEDS: Calcitriol 0.25 MCG CAP PO SCH (12:13)
--- NOTE | 2018-02-12 12:25 | PDOC.PN ---
- Subjective Encounter Start Date: 02/12/18 Encounter Start Time: 12:23 Mr. Hodges was seen today in follow-up of new diagnosis of ESRD. He does not have any complaints. He denies any chest pain or shortness of breath. He notes a little abdominal soreness after the PD catheter, but otherwise ok. - Objective Resuscitation Status: Resuscitation Status FULL:Full Resuscitation MAR Reviewed: Yes Vital Signs & Weight: Vital Signs (12 hours) Temp Pulse Resp BP Pulse Ox 02/12/18 11:50 97.7 F 62 20 151/86 H 100 02/12/18 08:20 98.0 F 67 20 100 02/12/18 07:56 98.0 F 67 20 157/85 H 100 02/12/18 04:00 97.9 F 80 18 155/74 H 100 Weight Admit Weight 217 lb 12.8 oz Weight 217 lb 12.8 oz I&O: 02/11/18 02/12/18 02/13/18 06:59 06:59 06:59 Intake Total 2300 480 Output Total 1800 Balance 500 480 Result Diagrams: 02/12/18 04:36 02/12/18 04:36 Additional Labs: Accuchecks 02/12/18 02/11/18 04:36 20:36 POC Glucose 96 78 Phys Exam - Physical Examination HEENT: PERRLA Respiratory: no wheezing, no rales, no rhonchi, clear to auscultation bilateral Cardiovascular: RRR, no significant murmur, no rub Gastrointestinal: soft, positive bowel sounds + mild diffuse tenderness no rebound or guarding Musculoskeletal: no edema, pulses present Neurological: non-focal Dx/Plan (1) End stage renal disease Code(s): N18.6 - END STAGE RENAL DISEASE Status: Acute (2) CAD (coronary artery disease) Code(s): I25.10 - ATHSCL HEART DISEASE OF [place] CORONARY ARTERY W/O ANG PCTRS Status: Chronic Qualifiers: Comment: chronic, stable (3) DM type 2 (diabetes mellitus, type 2) Status: Chronic Qualifiers: Comment: Continue Glipizide 5mg daily, ISS (4) HTN (hypertension) Code(s): I10 - ESSENTIAL (PRIMARY) HYPERTENSION Status: Chronic Qualifiers: Comment: Stable, continue current regimen - Plan * ESRD- patient is being prepared for dialysis * He will be going to HD initially at [place], then once PD catheter healed the PD. * HTN- blood pressure has been borderline elevated- will continue on the same medications and observe * DM- blood glucose is stable
--- NOTE | 2018-02-12 14:45 | PDOC.CTH ---
Cardiology Progress Note - Subjective Feels good, had 2nd round of dialysis today. No chest pain or shortness of breath. No overnight cardiac events. - Objective Vital Signs Temp Pulse Resp BP Pulse Ox 02/12/18 11:50 97.7 F 62 20 151/86 H 100 02/12/18 08:20 98.0 F 67 20 100 02/12/18 07:56 98.0 F 67 20 157/85 H 100 02/12/18 04:00 97.9 F 80 18 155/74 H 100 Admit Weight 217 lb 12.8 oz Weight 217 lb 12.8 oz 02/11/18 02/12/18 02/13/18 06:59 06:59 06:59 Intake Total 2300 480 Output Total 1800 Balance 500 480 - Physical Examination General/Neuro: alert & oriented x3, NAD Neck: no JVD present Lungs: CTA, unlabored respirations Heart: RRR Abdomen: NT/ND, soft, other: - Telemetry Telemetry Rhythm: ASensed/VPaced - Labs Result Diagrams: 02/12/18 04:36 02/12/18 04:36 Troponin/CKMB CK-MB (CK-2) 1.8 ng/mL (0-6.6) 02/09/18 22:52 Troponin I 0.022 ng/mL (< 0.028) 02/10/18 04:46 - Assessment/Plan 1. CAD- No anginal symptoms. S/P PCI, continue ASA, BB, and statin; not on ACEi /ARB due to hx of CKD 2. CKD - Plan for PD, S/P PD catheter placement, left IJ THDC 3. HTN-needs tighter control, start hydralazine 25mg TID, titrate up as tolerated 4. Hyperlipidemia-continue statin 5. PM placement 6. S/p AAA repair c/ endograft 7. Tobacco abuse-quit 3 weeks ago MAR reviewed
[2018-02-12] MEDS: hydrALAZINE 25 MG TAB PO SCH (20:23)
[2018-02-12] MEDS: Simvastatin 20 MG TAB PO SCH (20:23)
[2018-02-12] MEDS: Famotidine 20 MG TAB PO SCH (20:23)
[2018-02-12] MEDS: HYDROcodone/Acetaminophen 7.5/325 mg Tablet PO PRN (23:51)
[2018-02-13 06:20] LABS: #Eosinphils 0.3 thou/uL (0.0-0.7); #Lymphocytes 1.5 thou/uL (1.20-3.40); #Monocytes 0.6 thou/uL (0.11-0.59); #Neutrophils 6.6 thou/uL (1.40-6.50); %Basophils 0.5 % (0.0-1.0); %Eosinophils 3.6 % (0.0-10.0); %Lymphocytes 16.2 % (21.0-51.0); %Neutrophils 72.7 % (42.0-75.0); Hemoglobin 11.1 g/dL (14.0-18.0); Mean Corpuscular HGB CONC 33.8 g/dL (32.0-36.0); Mean Corpuscular Volume 91.8 fL (78.0-98.0); Mean Platelet Volume 7.5 fL (7.4-10.4); Platelet Count 188 thou/uL (130-400); RBC Distribution Width 13.1 % (11.5-14.5); Red Blood Cell (RBC) Count 3.59 mill/uL (4.70-6.10); White Blood Cell (WBC) Count 9.1 thou/uL (4.8-10.8)
[2018-02-13 06:41] LABS: Anion Gap 15 mmol/L (10-20); BUN (Urea Nitrogen) 41 mg/dL (8.4-25.7); Calc. Creatinine Clearance 17 mL/min (70-130); Calcium 9.4 mg/dL (7.8-10.44); Carbon Dioxide 22 mmol/L (22-29); Chloride 104 mmol/L (98-107); Estimated GFR-MDRD 11; Glucose 75 mg/dL (70-105); Potassium 4.6 mmol/L (3.5-5.1); Sodium 136 mmol/L (136-145)
--- NOTE | 2018-02-13 10:04 | PRG ---
DATE OF SERVICE: 02/13/2018 RENAL MEDICINE SUBJECTIVE: Mr. Hodges is a 57-year-old black male who was admitted for initiation of dialysis due t o uremic signs and symptoms. He has undergone 2 days of dialysis. I have scheduled him for another dialysis treatment today. No new complaints. Denies any chest pain or shortness of breath. OBJECTIVE: VITAL SIGNS: Blood pressure 138/79, heart rate 66, respiratory rate 16, temperature 98.2, pulse ox 9 6%. GENERAL: Awake, alert, comfortable. SKIN: Adequate turgor. HEENT: Pinkish conjunctivae, anicteric sclerae. NECK: No neck mass, no carotid bruits, no JVD. CHEST: No deformities. LUNGS: Clear breath sounds. HEART: Normal sinus rhythm. No murmurs, no gallops, no rubs. ABDOMEN: Globular, soft, nontender, no masses. Please note there is a PD catheter in the abdomen. EXTREMITIES: Trace edema, no deformities. MEDICATIONS: Medications of 02/13/2018 reviewed. LABORATORY DATA: Laboratories of 02/13/2018; sodium 136, potassium 3.6, chloride 104, carbon dioxide 22, BUN 41, creatinine 6.33, calcium 9.4. White count is 9.1, hemoglobin 11.1. ASSESSMENT AND PLAN: 1. End-stage renal disease - continuing daily dialysis. My plan is to do a 3-hour hemodialysis with this patient. Fluid removal as tolerated by the patient. 2. Hyperphosphatemia, on Renvela. 3. Secondary hyperparathyroidism. Calcitriol has been initiated. He is currently taking calcitriol 0.25 mcg tab every day. We are awaiting for outpatient dialysis placement in [place] with this siri ent.
[2018-02-13] MEDS ORDERED: Activase 2 MG VIAL CATH SCH ×2 (12:45→15:00)
[2018-02-13] MEDS ORDERED: Sterile Water 10 ML VIAL IVP SCH ×2 (12:45→15:00)
--- NOTE | 2018-02-13 13:20 | PDOC.CTH ---
Cardiology Progress Note - Subjective Patient seen & examined in dialysis. Feels good, denies any chest pain, shortness of breath, N/V/D. No overnight cardiac events. - Objective Vital Signs Temp Pulse Resp BP Pulse Ox 02/13/18 11:32 98.5 F 74 16 143/79 H 96 02/13/18 08:00 98.2 F 66 16 138/79 96 02/13/18 04:00 98.3 F 71 18 138/84 97 Admit Weight 217 lb 12.8 oz Weight 216 lb 12.8 oz 02/12/18 02/13/18 02/14/18 06:59 06:59 06:59 Intake Total 480 1550 Balance 480 1550 - Physical Examination General/Neuro: alert & oriented x3, NAD Neck: no JVD present Lungs: CTA, unlabored respirations Heart: RRR Abdomen: NT/ND, soft - Telemetry Telemetry Rhythm: ASensed/VPaced - Labs Result Diagrams: 02/13/18 05:53 02/13/18 05:53 Troponin/CKMB CK-MB (CK-2) 1.8 ng/mL (0-6.6) 02/09/18 22:52 Troponin I 0.022 ng/mL (< 0.028) 02/10/18 04:46 - Assessment/Plan 1. CAD- No anginal symptoms. S/P PCI, continue ASA, BB, and statin; not on ACEi /ARB due to hx of CKD 2. CKD - Plan for PD, S/P PD catheter placement, left IJ THDC 3. HTN-improved on current regimen, stable. 4. Hyperlipidemia-continue statin 5. PM placement 6. S/P AAA repair c/ endograft 7. Tobacco abuse-quit 3 weeks ago
--- NOTE | 2018-02-13 15:20 | PDOC.PN ---
- Subjective Encounter Start Date: 02/13/18 Encounter Start Time: 15:19 Mr. Hodges says he began having severe pain in his right knee, and index finger on the right. He believes it is due to Gout. - Objective Resuscitation Status: Resuscitation Status FULL:Full Resuscitation MAR Reviewed: Yes Vital Signs & Weight: Vital Signs (12 hours) Temp Pulse Resp BP Pulse Ox 02/13/18 11:32 98.5 F 74 16 143/79 H 96 02/13/18 08:00 98.2 F 66 16 138/79 96 02/13/18 04:00 98.3 F 71 18 138/84 97 Weight Admit Weight 217 lb 12.8 oz Weight 216 lb 12.8 oz I&O: 02/12/18 02/13/18 02/14/18 06:59 06:59 06:59 Intake Total 480 1550 Balance 480 1550 Result Diagrams: 02/13/18 05:53 02/13/18 05:53 Additional Labs: Accuchecks 02/13/18 02/13/18 02/12/18 10:58 05:55 20:25 POC Glucose 78 80 126 H 02/12/18 18:08 POC Glucose 95 Phys Exam - Physical Examination HEENT: PERRLA Respiratory: no wheezing, no rales, no rhonchi, clear to auscultation bilateral Cardiovascular: RRR, no significant murmur, no rub Gastrointestinal: soft, non-tender, positive bowel sounds + mild warmth and swelling the lateral aspect of the right knee + swelling at the proximal IP of the right index finger Dx/Plan (1) End stage renal disease Code(s): N18.6 - END STAGE RENAL DISEASE Status: Acute (2) CAD (coronary artery disease) Code(s): I25.10 - ATHSCL HEART DISEASE OF [place] CORONARY ARTERY W/O ANG PCTRS Status: Chronic Qualifiers: Comment: chronic, stable (3) DM type 2 (diabetes mellitus, type 2) Status: Chronic Qualifiers: Comment: Continue Glipizide 5mg daily, ISS (4) HTN (hypertension) Code(s): I10 - ESSENTIAL (PRIMARY) HYPERTENSION Status: Chronic Qualifiers: Comment: Stable, continue current regimen - Plan * Acute Gout Flair- will give a dose of Toradol now, and start Colchicine * Continue Allopurinol * HTN- blood pressure is better after Hydralazine was added * DM- blood glucose is stable * ESRD- continue dialysis as tolerated.
[2018-02-13] MEDS ORDERED: HYDROcodone/Acetaminophen 5/325 mg Tablet PO PRN (15:22)
[2018-02-13] MEDS ORDERED: Ketorolac Tromethamine 30 MG/ML VIAL IVP SCH (15:30)
[2018-02-13] MEDS: glipiZIDE 5 MG TAB PO SCH ×2 (19:26→19:27)
[2018-02-13] MEDS: Sevelamer Carbonate 800 MG TAB PO SCH ×2 (19:27→19:28)
[2018-02-13] MEDS: Calcitriol 0.25 MCG CAP PO SCH (19:28)
[2018-02-13] MEDS: Allopurinol 300 MG TAB PO SCH (19:28)
[2018-02-13] MEDS: hydrALAZINE 25 MG TAB PO SCH ×3 (19:28→20:05)
[2018-02-13] MEDS: Aspirin 325 mg Enteric Coated Tablet PO SCH (19:28)
[2018-02-13] MEDS: Metoprolol Tartrate 25 MG TAB PO SCH ×2 (19:29→20:05)
[2018-02-13] MEDS: Colchicine 0.3 MG TAB PO SCH (20:04)
[2018-02-13] MEDS: Famotidine 20 MG TAB PO SCH (20:05)
[2018-02-13] MEDS: Simvastatin 20 MG TAB PO SCH (23:00)
[2018-02-14] MEDS: Sevelamer Carbonate 800 MG TAB PO SCH ×3 (08:08→16:57)
[2018-02-14] MEDS: glipiZIDE 5 MG TAB PO SCH ×2 (08:09→16:56)
--- NOTE | 2018-02-14 08:55 | PRG ---
DATE OF SERVICE: 02/14/2018 SUBJECTIVE: Mr. Hodges is a 57-year-old black male with ESRD and admitted for initiation of dialysis due to uremic signs and symptoms. We attempted to dialyze him yesterday. However, the catheter was nonfunctional. A 1 hour Activase placement was done, but still no improvement with the blood flow. We decided to overnight Activase again and will attempt to use the catheter today. No other complai nts, no chest pain, shortness of breath. OBJECTIVE: VITAL SIGNS: Blood pressure is 146/77, heart rate 69, respiratory rate 20, temperature 98.3, pulse o x 99%. GENERAL: Noted to be awake, alert, sitting comfortable, not in distress. SKIN: Adequate turgor. HEENT: Pinkish conjunctivae, anicteric sclerae. NECK: No neck mass, no carotid bruits, no JVD. CHEST: No deformities. LUNGS: Clear breath sounds. HEART: Normal sinus rhythm. No murmur, no gallops, no rubs. ABDOMEN: Globular, soft, nontender, no masses. Positive for PD catheter. EXTREMITIES: No edema, no deformities. MEDICATIONS: 02/14/2018 - Reviewed. LABORATORY DATA: 02/13/2018 - White count 9.1, hemoglobin 11.1. Sodium 136, potassium 4.6, chloride 104, carbon dioxide 22, BUN 41, creatinine 6.33, calcium 9.4, glucose 80. ASSESSMENT AND PLAN: 1. End-stage renal disease - stable. Tolerating current hemodialysis regimen. As previously huy coon, nonfunctional hemodialysis catheter noted yesterday. Overnight Activase has been placed. We wi ll attempt again to do another dialysis session today. We will attempt to do 3 hours of hemodialysis . 2. Secondary hyperparathyroidism. Calcitriol has been initiated at 0.25 mcg daily. 3. Hyperphosphatemia - Renvela 800 mg 1 tab t.i.d., we are currently awaiting outpatient dialysis pl acement with this patient.
[2018-02-14] MEDS: Calcitriol 0.25 MCG CAP PO SCH (09:21)
[2018-02-14] MEDS: Allopurinol 300 MG TAB PO SCH (09:21)
[2018-02-14] MEDS: Colchicine 0.3 MG TAB PO SCH ×2 (09:22→21:53)
[2018-02-14] MEDS: hydrALAZINE 25 MG TAB PO SCH (09:23)
[2018-02-14] MEDS: Metoprolol Tartrate 25 MG TAB PO SCH (09:24)
[2018-02-14] MEDS: Aspirin 325 mg Enteric Coated Tablet PO SCH (09:25)
--- NOTE | 2018-02-14 12:58 | PDOC.PN ---
- Subjective Encounter Start Date: 02/14/18 Encounter Start Time: 12:57 was seen today in follow-up of new diagnoses ESRD. He does not have any complaints. He says the pain in his knee and finger is better. - Objective Resuscitation Status: Resuscitation Status FULL:Full Resuscitation MAR Reviewed: Yes Vital Signs & Weight: Vital Signs (12 hours) Temp Pulse Resp BP Pulse Ox 02/14/18 11:37 98.3 F 84 20 155/74 H 99 02/14/18 09:23 69 02/14/18 08:12 98.3 F 69 20 99 02/14/18 07:50 98.3 F 69 20 146/77 H 99 02/14/18 03:21 98.4 F 70 20 140/75 99 Weight Admit Weight 217 lb 12.8 oz Weight 217 lb 4.8 oz I&O: 02/13/18 02/14/18 02/15/18 06:59 06:59 06:59 Intake Total 1550 1000 Balance 1550 1000 Result Diagrams: 02/13/18 05:53 02/13/18 05:53 Additional Labs: Accuchecks 02/14/18 02/14/18 02/14/18 11:57 11:05 05:12 POC Glucose 78 57 L* 102 02/13/18 02/13/18 22:24 17:18 POC Glucose 149 H 87 Phys Exam - Physical Examination HEENT: PERRLA Respiratory: no wheezing, no rales, no rhonchi, clear to auscultation bilateral Cardiovascular: RRR, no significant murmur, no rub Gastrointestinal: soft, non-tender, positive bowel sounds Musculoskeletal: no edema Dx/Plan (1) End stage renal disease Code(s): N18.6 - END STAGE RENAL DISEASE Status: Acute (2) CAD (coronary artery disease) Code(s): I25.10 - ATHSCL HEART DISEASE OF [place] CORONARY ARTERY W/O ANG PCTRS Status: Chronic Qualifiers: Comment: chronic, stable (3) DM type 2 (diabetes mellitus, type 2) Status: Chronic Qualifiers: Comment: Continue Glipizide 5mg daily, ISS (4) HTN (hypertension) Code(s): I10 - ESSENTIAL (PRIMARY) HYPERTENSION Status: Chronic Qualifiers: Comment: Stable, continue current regimen - Plan * Gout Flair- has improved * HTN- blood pressure - stable * ESRD- stable * Awaiting outpatient dialysis arrangements.
[2018-02-14] MEDS: Famotidine 20 MG TAB PO SCH (21:54)
[2018-02-14] MEDS: Metoprolol Tartrate 50 MG TAB PO SCH (21:54)
[2018-02-14] MEDS: Simvastatin 20 MG TAB PO SCH (21:55)
[2018-02-15 05:32] LABS: #Eosinphils 0.4 thou/uL (0.0-0.7); #Lymphocytes 1.5 thou/uL (1.20-3.40); #Monocytes 0.7 thou/uL (0.11-0.59); #Neutrophils 4.8 thou/uL (1.40-6.50); %Basophils 0.2 % (0.0-1.0); %Eosinophils 5.5 % (0.0-10.0); %Lymphocytes 20.8 % (21.0-51.0); %Neutrophils 64.5 % (42.0-75.0); Mean Corpuscular HGB CONC 33.5 g/dL (32.0-36.0); Mean Corpuscular Hemoglobin 30.4 pg (27.0-31.0); Mean Corpuscular Volume 90.8 fL (78.0-98.0); Mean Platelet Volume 7.5 fL (7.4-10.4); Platelet Count 160 thou/uL (130-400); RBC Distribution Width 12.9 % (11.5-14.5); White Blood Cell (WBC) Count 7.4 thou/uL (4.8-10.8)
[2018-02-15 05:57] LABS: Anion Gap 17 mmol/L (10-20); BUN (Urea Nitrogen) 37 mg/dL (8.4-25.7); Calc. Creatinine Clearance 19 mL/min (70-130); Calcium 9.3 mg/dL (7.8-10.44); Carbon Dioxide 21 mmol/L (22-29); Cardiac Risk 4.1 (Less than 4.5); Chloride 105 mmol/L (98-107); Cholesterol 141 mg/dl (< 200 Desired); Estimated GFR-MDRD 12; Glucose 73 mg/dL (70-105); HDL Cholesterol 34 mg/dL (>60 Neg Risk); LDL Cholesterol, Calculated 74 mg/dL; Potassium 4.8 mmol/L (3.5-5.1); Sodium 138 mmol/L (136-145); Triglycerides 167 mg/dL (Less than 150)
[2018-02-15 11:31] VITALS: BMI 27.3
[2018-02-15] MEDS: Sevelamer Carbonate 800 MG TAB PO SCH ×3 (12:44→17:52)
--- NOTE | 2018-02-15 12:51 | PRG ---
DATE OF SERVICE: 02/15/2018 SUBJECTIVE: Mr. Hodges is a 57-year-old black female admitted for uremic symptoms. Hemodialysis was initiated. In the interim, a PD catheter was also placed. We are waiting current placement with th is patient. I am currently at the bedside supervising his hemodialysis. A Cardiology consult has al so been done with Mr. Hodges for cardiac clearance prior to the said PD catheter placement. No compl aints today, no chest pain or shortness of breath. PHYSICAL EXAMINATION: VITAL SIGNS: Blood pressure 128/74, heart rate 70, respiratory rate 16, temperature 99.4, pulse ox 9 7%. GENERAL: Awake, alert, comfortable, not in overt distress. SKIN: Adequate turgor. HEENT: He has pinkish conjunctivae, anicteric sclerae. NECK: No neck mass, no carotid bruits, no JVD. CHEST: No deformities. LUNGS: Clear breath sounds, no wheezing, no crackles. HEART: Normal sinus rhythm. No murmur, no gallops, no rubs. ABDOMEN: Globular, soft, nontender. No masses. Positive for PD catheter. EXTREMITIES: No edema, no deformities. MEDICATIONS: 02/15/2018 reviewed. LABORATORY DATA: 02/15/2018, white count 7.4, hemoglobin 10. Sodium 138, potassium 4.8, chloride 10 5, carbon dioxide 21, BUN 37, creatinine 5.88, glucose 73, calcium 9.3. 02/15/2018, cardiac echo lovely wed EF 60%-65%. ASSESSMENT AND PLAN: 1. End-stage renal disease/chronic renal failure - currently undergoing hemodialysis. Continue 3 ti mes a week hemodialysis with this patient. Fluid removal as tolerated. Recently, the hemodial ysis catheter due to poor blood flow. Currently, we have adequate blood flow. He eventually will co nvert to peritoneal dialysis once we start training him next week. Currently, we are awaiting outpat ient dialysis placement. 2. Secondary hyperparathyroidism, currently on calcitriol. 3. Hyperphosphatemia. Continue Renvela 800 mg 1 tab t.i.d. with meals. Recheck base met and CBC in a.m.
--- NOTE | 2018-02-15 13:49 | PDOC.PN ---
- Subjective Encounter Start Date: 02/15/18 Encounter Start Time: 13:47 Mr. Hodges was seen today in follow-up of new End stage renal disease. He does not have any complaints. - Objective Resuscitation Status: Resuscitation Status FULL:Full Resuscitation MAR Reviewed: Yes Vital Signs & Weight: Vital Signs (12 hours) Temp Pulse Resp BP Pulse Ox 02/15/18 08:00 99.4 F 70 16 128/74 97 02/15/18 03:41 98.1 F 79 20 113/74 98 Weight Admit Weight 217 lb 12.8 oz Weight 212 lb 8 oz I&O: 02/14/18 02/15/18 02/16/18 06:59 06:59 06:59 Intake Total 1000 1470 Balance 1000 1470 Result Diagrams: 02/15/18 04:29 02/15/18 04:29 Additional Labs: Accuchecks 02/15/18 02/15/18 02/14/18 13:30 05:17 21:13 POC Glucose 108 82 79 02/14/18 16:58 POC Glucose 127 H Phys Exam - Physical Examination HEENT: PERRLA Respiratory: no wheezing, no rales, no rhonchi, clear to auscultation bilateral Cardiovascular: RRR, no significant murmur, no rub Gastrointestinal: soft, non-tender, positive bowel sounds Musculoskeletal: no edema Dx/Plan (1) End stage renal disease Code(s): N18.6 - END STAGE RENAL DISEASE Status: Acute (2) CAD (coronary artery disease) Code(s): I25.10 - ATHSCL HEART DISEASE OF [place] CORONARY ARTERY W/O ANG PCTRS Status: Chronic Qualifiers: Comment: chronic, stable (3) DM type 2 (diabetes mellitus, type 2) Status: Chronic Qualifiers: Comment: Continue Glipizide 5mg daily, ISS (4) HTN (hypertension) Code(s): I10 - ESSENTIAL (PRIMARY) HYPERTENSION Status: Chronic Qualifiers: Comment: Stable, continue current regimen - Plan * End Stage renal disease- Outpatient dialysis has been set up. * He is stable for discharge home.
[2018-02-15] MEDS: glipiZIDE 5 MG TAB PO SCH ×2 (14:22→17:51)
[2018-02-15] MEDS: Calcitriol 0.25 MCG CAP PO SCH (14:22)
[2018-02-15] MEDS: Aspirin 325 mg Enteric Coated Tablet PO SCH (14:23)
[2018-02-15] MEDS: Allopurinol 300 MG TAB PO SCH (14:23)
[2018-02-15] MEDS: Metoprolol Tartrate 50 MG TAB PO SCH ×2 (14:23→21:30)
[2018-02-15] MEDS: Colchicine 0.3 MG TAB PO SCH ×2 (14:37→21:29)
[2018-02-15] MEDS ORDERED: Simvastatin 40 MG TAB PO SCH (21:00)
[2018-02-15] MEDS: Atorvastatin Calcium 20 MG TAB PO SCH (21:30)
[2018-02-15] MEDS: Famotidine 20 MG TAB PO SCH (21:30)
--- NOTE | 2018-02-16 00:01 | DIS ---
Patient's primary care through [place]. DATE OF ADMISSION: DATE OF DISCHARGE: 02/15/2018 DISCHARGE DISPOSITION: Home. PRIMARY DISCHARGE DIAGNOSES: 1. End-stage renal disease on hemodialysis. 2. Hypertension. 3. Dyslipidemia. 4. History of coronary artery disease. 5. Diabetes mellitus type 2 with nephropathy. 6. Complete heart block, status post pacemaker placement. 7. History of tobacco abuse. CODE STATUS: FULL CODE. ALLERGIES: No known drug allergies. DISCHARGE MEDICATIONS: Include simvastatin 20 mg at bedtime, Nitrostat 0.4 sublingual p.r.n., metopr olol 25 mg twice a day, glipizide 2.5 mg twice daily, calcitriol 0.25 mcg daily, Lipitor 20 mg at bed time, aspirin 325 mg daily, and allopurinol 150 mg daily. PROCEDURES DONE DURING ADMISSION: The patient had an echocardiogram, and this is for routine prepara tion for his dialysis. The ejection fraction was estimated at 60%-65%. There was a pacemaker wire v isualized in the right ventricle. Left atrium was moderately dilated. There was mild to moderate tr icuspid regurgitation, mild atrial and aortic regurgitation, pacemaker wire leads were visualized in the right atrium. HOSPITAL COURSE: Mr. Hodges is a very pleasant 57-year-old gentleman, who was sent over to the [facility] by his store clerk cashier due to noting an elevation in his creatinine. There was concern that he had reached end-stage renal disease and as a result, he was evaluated for this. His store clerk cashier consult ed Surgery to have a temporary catheter placed as well as a peritoneal dialysis catheter placed, as h bk would like to initiate peritoneal dialysis. However, until the PD catheter is mature, he will be u ndergoing hemodialysis. His blood pressure was also noted to be poorly controlled and hydralazine wa s added to his blood pressure regimen. He was also placed on medications for end-stage renal disease including calcitriol and Renvela. Once the outpatient dialysis was arranged, the patient was discha rged home.
[2018-02-16 05:29] LABS: #Eosinphils 0.4 thou/uL (0.0-0.7); #Lymphocytes 1.5 thou/uL (1.20-3.40); #Monocytes 0.9 thou/uL (0.11-0.59); #Neutrophils 4.7 thou/uL (1.40-6.50); %Basophils 0.4 % (0.0-1.0); %Eosinophils 4.8 % (0.0-10.0); %Lymphocytes 20.5 % (21.0-51.0); %Monocytes 11.4 % (0.0-10.0); %Neutrophils 62.8 % (42.0-75.0); Hemoglobin 9.9 g/dL (14.0-18.0); Mean Corpuscular HGB CONC 34.8 g/dL (32.0-36.0); Mean Corpuscular Hemoglobin 31.5 pg (27.0-31.0); Mean Corpuscular Volume 90.5 fL (78.0-98.0); Mean Platelet Volume 7.1 fL (7.4-10.4); Platelet Count 170 thou/uL (130-400); RBC Distribution Width 12.8 % (11.5-14.5); Red Blood Cell (RBC) Count 3.14 mill/uL (4.70-6.10); White Blood Cell (WBC) Count 7.5 thou/uL (4.8-10.8)
[2018-02-16 05:37] LABS: Anion Gap 14 mmol/L (10-20); BUN (Urea Nitrogen) 30 mg/dL (8.4-25.7); Calc. Creatinine Clearance 20 mL/min (70-130); Calcium 9.2 mg/dL (7.8-10.44); Carbon Dioxide 24 mmol/L (22-29); Chloride 103 mmol/L (98-107); Estimated GFR-MDRD 13; Glucose 79 mg/dL (70-105); Potassium 4.7 mmol/L (3.5-5.1); Sodium 136 mmol/L (136-145)
[2018-02-16] MEDS ORDERED: Epoetin (ESRD) 20,000 UNITS/ML SC SCH (09:00)
[2018-02-16] MEDS: Sevelamer Carbonate 800 MG TAB PO SCH ×3 (09:04→16:50)
[2018-02-16] MEDS: Allopurinol 300 MG TAB PO SCH (09:04)
[2018-02-16] MEDS: Colchicine 0.3 MG TAB PO SCH ×2 (09:04→20:49)
[2018-02-16] MEDS: Metoprolol Tartrate 50 MG TAB PO SCH ×2 (09:05→20:50)
[2018-02-16] MEDS: Calcitriol 0.25 MCG CAP PO SCH (09:05)
[2018-02-16] MEDS: Aspirin 325 mg Enteric Coated Tablet PO SCH (09:05)
[2018-02-16] MEDS: glipiZIDE 5 MG TAB PO SCH ×2 (09:05→16:50)
--- NOTE | 2018-02-16 09:27 | PRG ---
DATE OF SERVICE: 02/16/2018 RENAL MEDICINE SUBJECTIVE: Mr. Hodges is a 57-year-old black male who was admitted for uremic signs and symptoms an d was initiated on hemodialysis. He is currently undergoing 3 times a week hemodialysis. He also mckeon d a PD catheter placed. Prior to the said PD catheter placement, he was cleared from a cardiac point of view by Cardiology Service. This morning, he voices no new complaints. No chest pain, no shortn ess of breath. PHYSICAL EXAMINATION: VITAL SIGNS: Blood pressure is 127/75, heart rate 68, respiratory rate 16, temperature 98.6, pulse o x 97%. GENERAL: Noted to be awake, alert, comfortable, not in distress. SKIN: Adequate turgor. HEENT: He has slightly pale conjunctivae, anicteric sclerae. NECK: No neck mass, no carotid bruits, no JVD. CHEST: No deformities. LUNGS: Clear breath sounds. HEART: Normal sinus rhythm. No murmurs, no gallops, no rubs. ABDOMEN: Globular, soft, nontender, no masses. EXTREMITIES: No edema, no deformities. He does have a PD catheter in his abdomen. MEDICATIONS: Medications of 02/16/2018 reviewed. LABORATORY DATA: Laboratories of 02/16/2018; white count 7.5, hemoglobin 9.9. Hepatitis C antibody nonreactive, hepatitis B surface antigen nonreactive. Sodium 136, potassium 4.7, chloride 103, carbo n dioxide 24, BUN 30, creatinine 5.47, glucose 79, calcium 9.2. ASSESSMENT AND PLAN: 1. End-stage renal disease, stable. Continue Wednesday, , and Wednesday hemodialysis regimen. Fluid removal only as tolerated. 2. Anemia. We will start Epogen 7,500 units subcutaneously every week. Start ferrous sulfate 325 m g b.i.d. 3. Secondary hyperparathyroidism - patient has been started on calcitriol 0.25 mcg tab daily. 4. Gout - in view of end-stage renal disease, we will discontinue Colcrys. 5. Hyperphosphatemia, currently on Renvela 800 mg 1 tab t.i.d. with meals. 6. We will recheck base met and CBC in a.m.
--- NOTE | 2018-02-16 11:35 | PDOC.PN ---
- Subjective Encounter Start Date: 02/16/18 Encounter Start Time: 11:33 Mr. Hodges was seen today in follow-up. He does not have any complaints today. - Objective Resuscitation Status: Resuscitation Status FULL:Full Resuscitation MAR Reviewed: Yes Vital Signs & Weight: Vital Signs (12 hours) Temp Pulse Resp BP Pulse Ox 02/16/18 08:00 98.6 F 68 16 97 02/16/18 07:27 98.6 F 68 16 127/75 97 02/16/18 04:00 98.3 F 71 18 134/78 98 02/16/18 00:00 98.9 F 82 20 130/70 96 Weight Admit Weight 217 lb 12.8 oz Weight 212 lb 8 oz I&O: 02/15/18 02/16/18 02/17/18 06:59 06:59 06:59 Intake Total 1470 780 300 Balance 1470 780 300 Result Diagrams: 02/16/18 04:54 02/16/18 04:54 Additional Labs: Accuchecks 02/16/18 02/15/18 02/15/18 04:56 20:39 17:21 POC Glucose 82 87 84 02/15/18 13:30 POC Glucose 108 Phys Exam - Physical Examination HEENT: PERRLA Respiratory: no wheezing, no rales, no rhonchi, clear to auscultation bilateral Cardiovascular: RRR, no significant murmur, no rub Gastrointestinal: soft, non-tender, positive bowel sounds Musculoskeletal: no edema Dx/Plan (1) End stage renal disease Code(s): N18.6 - END STAGE RENAL DISEASE Status: Acute (2) CAD (coronary artery disease) Code(s): I25.10 - ATHSCL HEART DISEASE OF [place] CORONARY ARTERY W/O ANG PCTRS Status: Chronic Qualifiers: Comment: chronic, stable (3) DM type 2 (diabetes mellitus, type 2) Status: Chronic Qualifiers: Comment: Continue Glipizide 5mg daily, ISS (4) HTN (hypertension) Code(s): I10 - ESSENTIAL (PRIMARY) HYPERTENSION Status: Chronic Qualifiers: Comment: Stable, continue current regimen - Plan * HTN- blood pressure is stable * DM- blood glucose is stable * ESRD- stable * Awaiting insurance approval for Outpatient dialysis.
--- NOTE | 2018-02-16 12:53 | EKG ---
Test Reason : ABNORMAL LABS Blood Pressure : / mmHG Vent. Rate : 117 BPM Atrial Rate : 000 BPM P-R Int : 000 ms QRS Dur : 094 ms QT Int : 202 ms P-R-T Axes : 000 075 260 degrees QTc Int : 281 ms Demand pacemaker; interpretation is based on intrinsic rhythm Accelerated Junctional rhythm with Premature ventricular complexes or Fusion complexes Low voltage QRS Nonspecific ST and T wave abnormality Abnormal ECG Confirmed by ROSA Castillo, MARLEN ([id number]), photo editor ODIN CRUZ ([id number]) on 02/16/2018 12:53:01 PM Referred By: ROSA Confirmed By:MARLEN LEE M.D.
[2018-02-16] MEDS: Famotidine 20 MG TAB PO SCH (20:50)
[2018-02-16] MEDS: Atorvastatin Calcium 20 MG TAB PO SCH (20:50)
[2018-02-17 04:38] LABS: #Basophils 0.1 thou/uL (0.0-0.2); #Eosinphils 0.4 thou/uL (0.0-0.7); #Lymphocytes 1.6 thou/uL (1.20-3.40); #Monocytes 0.8 thou/uL (0.11-0.59); #Neutrophils 4.7 thou/uL (1.40-6.50); %Basophils 0.8 % (0.0-1.0); %Eosinophils 5.6 % (0.0-10.0); %Lymphocytes 21.5 % (21.0-51.0); %Monocytes 10.2 % (0.0-10.0); %Neutrophils 61.8 % (42.0-75.0); Hemoglobin 9.6 g/dL (14.0-18.0); Mean Corpuscular HGB CONC 34.8 g/dL (32.0-36.0); Mean Corpuscular Hemoglobin 31.6 pg (27.0-31.0); Mean Corpuscular Volume 90.9 fL (78.0-98.0); Mean Platelet Volume 6.8 fL (7.4-10.4); Platelet Count 174 thou/uL (130-400); RBC Distribution Width 12.6 % (11.5-14.5); Red Blood Cell (RBC) Count 3.03 mill/uL (4.70-6.10); White Blood Cell (WBC) Count 7.6 thou/uL (4.8-10.8)
[2018-02-17 04:51] LABS: Anion Gap 14 mmol/L (10-20); BUN (Urea Nitrogen) 40 mg/dL (8.4-25.7); Calc. Creatinine Clearance 17 mL/min (70-130); Calcium 9.5 mg/dL (7.8-10.44); Carbon Dioxide 22 mmol/L (22-29); Chloride 105 mmol/L (98-107); Estimated GFR-MDRD 11; Glucose 94 mg/dL (70-105); Potassium 4.4 mmol/L (3.5-5.1); Sodium 137 mmol/L (136-145)
--- NOTE | 2018-02-17 09:30 | PRG ---
DATE OF SERVICE: 02/17/2018 SUBJECTIVE: Mr. Hodges is a 57-year-old black male with ESRD and was initiated on dialysis due to ur emic signs and symptoms. He also had a PD catheter placed since his preference for his maintenance di alysis is to undergo peritoneal dialysis. He has also been seen by the [facility] in [facility]. No new complaints today. We have scheduled this patient for his regular 4-hour dialysis tod . The patient denies any chest pain or shortness of breath. PHYSICAL EXAMINATION: VITAL SIGNS: Blood pressure is 122/62, heart rate 73, respiratory rate 18, temperature 98.4, pulse o x 98%. GENERAL: Awake, alert, comfortable, not in distress. SKIN: Adequate turgor. HEENT: He has pinkish conjunctivae, anicteric sclerae. NECK: No neck mass, no carotid bruits, no JVD. CHEST: No deformities. LUNGS: Clear breath sounds. HEART: Normal sinus rhythm. No murmur, no gallops, no rubs. ABDOMEN: Globular, soft, nontender, no masses. EXTREMITIES: No edema, no deformities. MEDICATIONS: 02/17/2018 - Reviewed. LABORATORY DATA: 02/17/2018 - White count 7.6, hemoglobin 9.6. Sodium 137, potassium 4.4, chloride 105, carbon dioxide 22, BUN 40, creatinine 6.48, calcium 9.5. ASSESSMENT AND PLAN: 1. Anemia. The patient has been initiated on Procrit at 7500 units subcutaneously every week. 2. End-stage renal disease, continuing Wednesday, , and Wednesday hemodialysis regimen. Fluid removal only as tolerated. 3. Hyperphosphatemia, currently on Renvela. 4. Secondary hyperparathyroidism. Calcitriol 0.25 mcg tab daily has been started. Continue current medication. We are waiting for outpatient dialysis placement - awaiting [facility] approval.
[2018-02-17] MEDS: Sevelamer Carbonate 800 MG TAB PO SCH ×3 (13:57→17:41)
[2018-02-17] MEDS: Allopurinol 300 MG TAB PO SCH (14:05)
[2018-02-17] MEDS: Aspirin 325 mg Enteric Coated Tablet PO SCH (14:06)
[2018-02-17] MEDS: Colchicine 0.3 MG TAB PO SCH (14:07)
[2018-02-17] MEDS: Calcitriol 0.25 MCG CAP PO SCH (14:07)
[2018-02-17] MEDS: glipiZIDE 5 MG TAB PO SCH ×2 (14:07→17:41)
[2018-02-17] MEDS: Metoprolol Tartrate 50 MG TAB PO SCH (14:07)
[2018-02-17 15:54] VITALS: BP 103/63; TEMP 98.8
[2018-02-18] MEDS ORDERED: Heparin 10,000 UNITS/ 10 ML VIAL ONE (15:00)
== END 2018-02-17 18:24 | disposition home or self-care (01) | DRG 673 ==
LOC: ERS 21:48 → 2SE 02-10 00:48
PROVIDERS: ADMIT Hospitalist; ATTEND Hospitalist
PROC: 0WHG43Z Insertion of Infusion Device into Peritoneal Cavity, Percutaneous Endoscopic Approach (ICD-10-PCS; principal; 2018-02-11)
PROC: 0JH60XZ Insertion of Tunneled Vascular Access Device into Chest Subcutaneous Tissue and Fascia, Open Approach (ICD-10-PCS; 2018-02-11)
PROC: 05HM33Z Insertion of Infusion Device into Right Internal Jugular Vein, Percutaneous Approach (ICD-10-PCS; 2018-02-11)
PROC: B513YZA Fluoroscopy of Right Jugular Veins using Other Contrast, Guidance (ICD-10-PCS; 2018-02-11)
PROC: 5A1D70Z Performance of Urinary Filtration, Intermittent, Less than 6 Hours Per Day (ICD-10-PCS; 2018-02-11)
DX: I12.0 Hypertensive chronic kidney disease with stage 5 chronic kidney disease or end stage renal disease (principal); N18.6 End stage renal disease; I44.2 Atrioventricular block, complete; N25.81 Secondary hyperparathyroidism of renal origin; E11.22 Type 2 diabetes mellitus with diabetic chronic kidney disease; Z99.2 Dependence on renal dialysis; E78.5 Hyperlipidemia, unspecified; I25.10 Atherosclerotic heart disease of native coronary artery without angina pectoris; E11.21 Type 2 diabetes mellitus with diabetic nephropathy; Z87.891 Personal history of nicotine dependence; Z95.0 Presence of cardiac pacemaker; I08.2 Rheumatic disorders of both aortic and tricuspid valves; E11.65 Type 2 diabetes mellitus with hyperglycemia; D64.9 Anemia, unspecified; E21.3 Hyperparathyroidism, unspecified; M10.9 Gout, unspecified; Z95.5 Presence of coronary angioplasty implant and graft
CPT/HCPCS: 36415; 36416; 71045; 80048; 80053; 80061; 81003; 81015; 82553; 83880; 83970; 84100; 84484; 85025; 86580; 86704; 86706; 86803; 87340; 90935; 93005; 93010; 93306; A4216; C1752; C1769; G0257; J1642; J1644; J1885; J2001; J2704; J2997; J3010; Q4081; S0020

== ENCOUNTER 2018-06-19 23:42 | Observation (INO) | payer MEDICARE ==
[2018-06-20] MEDS ORDERED: Pantoprazole 80 MG in Sodium Chloride 0.9% 100 ML IVP SCH (00:15)
[2018-06-20] MEDS ORDERED: Pantoprazole 40 MG VIAL ONE (00:15)
[2018-06-20] MEDS ORDERED: Ondansetron PF 4 MG/2 ML Vial ONE (00:23)
[2018-06-20 00:25] LABS: #Basophils 0.1 thou/uL (0.0-0.2); #Eosinphils 0.2 thou/uL (0.0-0.7); #Lymphocytes 1.6 thou/uL (1.20-3.40); #Monocytes 0.7 thou/uL (0.11-0.59); #Neutrophils 8.6 thou/uL (1.40-6.50); %Basophils 0.5 % (0.0-1.0); %Eosinophils 1.9 % (0.0-10.0); %Lymphocytes 14.1 % (21.0-51.0); %Monocytes 6.2 % (0.0-10.0); %Neutrophils 77.2 % (42.0-75.0); Hemoglobin 12.1 g/dL (14.0-18.0); Mean Corpuscular HGB CONC 34.5 g/dL (32.0-36.0); Mean Corpuscular Hemoglobin 32.3 pg (27.0-31.0); Mean Corpuscular Volume 93.7 fL (78.0-98.0); Mean Platelet Volume 7.2 fL (7.4-10.4); Platelet Count 318 thou/uL (130-400); RBC Distribution Width 14.8 % (11.5-14.5); Red Blood Cell (RBC) Count 3.74 mill/uL (4.70-6.10); White Blood Cell (WBC) Count 11.2 thou/uL (4.8-10.8)
[2018-06-20 00:34] LABS: INR-International Normal Ratio 1.1; PTT 30.9 SEC (22.9-36.1); Prothrombin Time 14.4 SEC (12.0-14.7)
[2018-06-20 00:45] LABS: ALT (SGPT) 11 U/L (8-55); AST (SGOT) 14 U/L (5-34); Alkaline Phosphatase 90 U/L (40-150); Anion Gap 18 mmol/L (10-20); BUN (Urea Nitrogen) 47 mg/dL (8.4-25.7); Bilirubin, Total 0.4 mg/dL (0.2-1.2); CK (CPK) 245 U/L (30-200); Calc. Creatinine Clearance 0 mL/min (70-130); Calcium 9.3 mg/dL (7.8-10.44); Carbon Dioxide 18 mmol/L (22-29); Chloride 107 mmol/L (98-107); Estimated GFR-MDRD 8; Globulin 3.6 g/dL (2.4-3.5); Glucose 62 mg/dL (70-105); Potassium 4.4 mmol/L (3.5-5.1); Protein, Total 7.6 g/dL (6.0-8.3); Sodium 139 mmol/L (136-145)
[2018-06-20 00:48] LABS: CKMB 2.3 ng/mL (0-6.6); Troponin I Less than 0.010 ng/mL (< 0.028)
[2018-06-20] MEDS ORDERED: Ondansetron PF 4 MG/2 ML Vial IVP PRN (02:23)
[2018-06-20] MEDS ORDERED: Sodium Chloride 0.9% 1,000 ML IV SCH (02:30)
[2018-06-20 03:10] LABS: Troponin I Less than 0.010 ng/mL (< 0.028)
[2018-06-20 04:37] VITALS: BMI 28.2
[2018-06-20 04:47] LABS: #Basophils 0.1 thou/uL (0.0-0.2); #Eosinphils 0.2 thou/uL (0.0-0.7); #Lymphocytes 1.6 thou/uL (1.20-3.40); #Monocytes 0.5 thou/uL (0.11-0.59); #Neutrophils 6.5 thou/uL (1.40-6.50); %Basophils 0.7 % (0.0-1.0); %Eosinophils 2.6 % (0.0-10.0); %Lymphocytes 17.9 % (21.0-51.0); %Monocytes 5.8 % (0.0-10.0); %Neutrophils 73.1 % (42.0-75.0); Hemoglobin 10.5 g/dL (14.0-18.0); Mean Corpuscular HGB CONC 34.5 g/dL (32.0-36.0); Mean Corpuscular Hemoglobin 32.6 pg (27.0-31.0); Mean Corpuscular Volume 94.5 fL (78.0-98.0); Mean Platelet Volume 7.4 fL (7.4-10.4); Platelet Count 247 thou/uL (130-400); RBC Distribution Width 14.7 % (11.5-14.5); Red Blood Cell (RBC) Count 3.23 mill/uL (4.70-6.10); White Blood Cell (WBC) Count 8.9 thou/uL (4.8-10.8)
[2018-06-20 05:10] LABS: Anion Gap 17 mmol/L (10-20); BUN (Urea Nitrogen) 48 mg/dL (8.4-25.7); Calc. Creatinine Clearance 14 mL/min (70-130); Calcium 8.7 mg/dL (7.8-10.44); Carbon Dioxide 16 mmol/L (22-29); Chloride 111 mmol/L (98-107); Estimated GFR-MDRD 8; Glucose 110 mg/dL (70-105); Potassium 4.4 mmol/L (3.5-5.1); Sodium 140 mmol/L (136-145)
[2018-06-20] MEDS ORDERED: Dextrose 50% Abboject 50 ML SYRINGE SLOW IVP PRN (06:02)
[2018-06-20] MEDS ORDERED: HumaLOG 300 UNITS/3 ML VIAL SC PRN (06:02)
[2018-06-20] MEDS ORDERED: Dextrose 5% in Water 1,000 ML IV PRN (06:02)
[2018-06-20 06:24] LABS: Hemoglobin 10.3 g/dL (14.0-18.0)
[2018-06-20 06:28] LABS: Troponin I Less than 0.010 ng/mL (< 0.028)
--- NOTE | 2018-06-20 06:37 | HP ---
PRIMARY CARE PHYSICIAN: The is the [place] [facility]. CODE STATUS: FULL CODE. TIME OF EVALUATION: 2:00 a.m. CHIEF COMPLAINT: Vomiting up blood. HISTORY OF PRESENT ILLNESS: This is a 58-year-old male patient with past medical history of multiple comorbidities including arrhythmia, CAD, sick sinus syndrome, status post pacemaker, diabetes type 2, hyperlipidemia, high cholesterol, hypertension, gout, end-stage renal disease on peritoneal dialysis , came to the hospital after having episodes of throwing up blood. The patient reported the episode was recurrent, had multiple vomits. No clear triggers, no alleviating factors. Only report for possibility for GI bleeding is the patient has been taking pain medications on a regular basis, he also reported some chest pain. There is no reported ____ ____ with no clear triggers and alleviating by itself. Symptoms are reported as moderate. REVIEW OF SYSTEMS: CONSTITUTIONAL: No fever or chills. The patient reported generalized weakness. RESPIRATORY: No cough, sputum production, shortness of breath. CARDIOVASCULAR: The patient reports no chest pain or palpitation. GASTROINTESTINAL: The patient had nausea, vomiting of blood. No diarrhea, no abdominal pain. SECURITY TECHNICIAN: No dizziness, headache or feeling ill. GENITOURINARY: No burning with urination. EXTREMITIES: No leg swelling. All other systems were reviewed and negative except for the findings mentioned above. PAST MEDICAL HISTORY: Mentioned in the HPI. PAST SURGICAL HISTORY: Positive for left knee replacement, pacemaker placement , ____ correction, back surgery. PSYCHIATRIC HISTORY: No previous psych history. SOCIAL HISTORY: Former drug user, abused cocaine, marijuana, currently smokes half a pack per day. ALLERGIES: No known drug allergies. FAMILY HISTORY: Mother and father with heart problems. REPORTED MEDICATIONS: Metoprolol, simvastatin, glipizide, allopurinol, fluticasone, albuterol, calcitriol, aspirin. PHYSICAL EXAMINATION: VITAL SIGNS: On presentation, blood pressure 130/103, heart rate 118, respiratory rate was 18, temperature 98.2, pain 8/10. GENERAL APPEARANCE: The patient is alert and oriented, in mild distress due to symptoms. HEENT: Eyes: Normal conjunctivae. Moist oral mucosa. Anicteric. NECK: No JVD. RESPIRATORY: Bilateral air entry. No rales, no wheezing. Symmetric expansion. CARDIOVASCULAR: Normal rate, regular rhythm. No murmurs or gallop. No edema. ABDOMEN: Soft, normal bowel sounds. MUSCULOSKELETAL: Baseline range of motion is regular. SKIN: Warm and intact. No pallor, no rash. No redness. Peripheral pulses are present. Cap refill seems to be intact. NEUROLOGIC: No evidence of any new focal weakness. Baseline speech. Cranial nerves seems to be intact. PSYCHIATRIC: The patient has normal mood. No anxiety. Oriented. Optimal judgment. EKG was reviewed. The patient has sinus tachycardia, rate of 119. No other findings. Chest x-ray was reviewed. The patient had a tortuous aorta with a right AICD placement. LABORATORY DATA: The labs were reviewed. The patient has white count 8.9 with hemoglobin initially was 12, the second one was 10.5, MCV 93, platelet count 318. Coagulation was normal. Chemistry: Sodium 140, potassium 4.4, chloride 111, carbon dioxide initially was 18 came down to 16, anion gap 18, BUN 47 and initial creatinine 8.46, glucose 62. First blood draw segment is 110. Troponin was negative x2. ASSESSMENT AND PLAN: The patient will be placed in the hospital with following medical problems: 1. Gastrointestinal bleeding. The patient reportedly having recurrent bloody vomits, likely related to NSAID use, patient will be started on Protonix. We will monitor hemoglobin, a GI consult for any further workup. We will transfuse as needed. 2. History of renal disease on peritoneal dialysis, we will consult Nephrology , we will follow recommendations. Potassium was normal. 3. Acute blood loss anemia. The patient has hemoglobin of 12 on presentation, came down to 10.5, we will transfuse as needed, monitor hemoglobin, the rest of treatment as above. 4. Chest pain reported by patient. Patient has recent stress test done 2-3 months ago and it was negative, will not proceed with any other tests at this point. Troponins are negative, EKG is not significant ischemia, we will request records from outside facility. Consider new evaluation if any further stress test is considered. 5. Deep venous thrombosis prophylaxis. 6. Uncontrolled diabetes. The patient presented with hypoglycemia, reconcile home meds, will adjust treatment as needed. Hypoglycemia protocol. 7. History of gout. Continue allopurinol. This is chronic, seems to be stable. 8. Hyperlipidemia. Continue simvastatin. MTDD
--- NOTE | 2018-06-20 07:34 | RAD ---
CHEST 1 VIEW: Date: 06/19/18 HISTORY: Chest pain. COMPARISON: Radiograph dated 02/09/18. FINDINGS: Lungs are clear. No pneumothorax or effusion. Cardiac silhouette and mediastinal contours within norm al limits. IMPRESSION: No acute intrathoracic abnormality. POS: [facility]
[2018-06-20] MEDS ORDERED: Epoetin (ESRD) 20,000 UNITS/ML SC SCH (08:15)
--- NOTE | 2018-06-20 09:02 | CON ---
DATE OF CONSULTATION: 06/20/2018 HISTORY OF PRESENT ILLNESS: Mr. Hodges is a 58-year-old black male with end-stage renal disease - cu rrently on peritoneal dialysis and was admitted for hematemesis. We are being consulted for his maintenance peritoneal dialysis. REVIEW OF SYSTEMS: Currently, no chest pain, no shortness of breath, occasional nausea. No diarrhea , no constipation, no productive cough, no fever or chills, no abdominal pain. Appetite and energy l evel is fair. No headache, no diplopia, no sore throat, no hematochezia, no melena, ? of hematemesis . MEDICATIONS: Of 06/20/2018 showed the following, Zyloprim 150 mg once a day, Lipitor 10 mg tab at be dtime, Calcitriol 0.75 mcg daily, Humalog sliding scale, Protonix 80 mg IV daily, Renvela 800 mg 3 ta bs t.i.d. with meals, Zofran 4 mg IV q.6 hours p.r.n. PAST MEDICAL HISTORY: 1. ESRD, currently on peritoneal dialysis. 2. Hyperlipidemia. 3. Type 2 diabetes mellitus. 4. Gout. 5. Longstanding hypertension. 6. Coronary artery disease. PAST SURGICAL HISTORY: 1. Status post PD catheter placement. 2. Status post cardiac catheterization with coronary artery stent placement. 3. Status post pacemaker placement. 4. Status post aneurysmal repair at [facility]. 5. Status post ACL repair, left knee. ALLERGIES: None. TRAUMA: None. IMMUNIZATIONS: Up to date. HOSPITALIZATIONS: Please see past medical history. SOCIAL HISTORY: The patient currently lives in [place]. He is a . He is . Currently , no smoking, no alcohol use, ? of blood transfusion. Previous use of marijuana. FAMILY HISTORY: No family history of ESRD. PHYSICAL EXAMINATION: VITAL SIGNS: Blood pressure is noted at 159/75, heart rate 87, respiratory rate 18, pulse ox 99% on room air, temperature 98.3. GENERAL: Awake, alert, comfortable, not in distress. SKIN: Adequate turgor. HEENT: Slightly pale conjunctivae, anicteric sclerae. NECK: No neck mass, no carotid bruits, no JVD. CHEST: No deformities. LUNGS: Clear breath sounds, no wheezing, no crackles. HEART: Normal sinus rhythm. No murmur, no gallops, no rubs. ABDOMEN: Globular, soft, nontender, no masses. Positive for bowel sounds. Negative for epigastric bruits. Positive for PD catheter. EXTREMITIES: No edema, no deformities. NEUROLOGIC: Moving all extremities. No tremors, no asterixis. Oriented to 3 spheres. LABORATORY DATA: Of 06/20/2018, sodium 140, potassium 4.4, chloride 111, carbon dioxide 16, BUN 48, creatinine 8.16, calcium 8.7. White count 8.9, hemoglobin 10.5. IMAGING: Chest x-ray of 06/19/2018, no acute intrathoracic abnormality. ASSESSMENT AND PLAN: 1. End-stage renal disease, stable. We will continue current continuous cycling peritoneal dialysis regimen. The patient has been doing well with the current peritoneal dialysis regimen. Review of t he last Kt/V suggests he is adequately dialyzed with the current PD regimen. 2. Hematemesis - we will observe. Please note, he is on Protonix at 80 mg IV daily. In addition, h is H&H is stable. We will be resuming back his weekly Epogen. 3. We will set up the patient for peritoneal dialysis tonight if the patient is still here.
[2018-06-20] MEDS: Sevelamer Carbonate 800 MG TAB PO SCH ×3 (09:06→18:35)
[2018-06-20] MEDS: Calcitriol 0.25 MCG CAP PO SCH (09:46)
[2018-06-20] MEDS: Allopurinol 300 MG TAB PO SCH (09:46)
--- NOTE | 2018-06-20 10:21 | PDOC.PN ---
- Subjective Encounter Start Date: 06/20/18 Encounter Start Time: 10:19 Patient lying in bed with at bedside. He reports no events over night. He denies chest pain or shortness of breath, but is complaining of mild abdominal discomfort. He denies nausea or vomiting. He is reporting dark stool. - Objective Resuscitation Status: Resuscitation Status FULL:Full Resuscitation MAR Reviewed: Yes Vital Signs & Weight: Vital Signs (12 hours) Temp Pulse Resp BP Pulse Ox 06/20/18 08:00 98.4 F 83 14 128/75 100 06/20/18 02:55 87 18 159/75 H 99 Weight Weight 219 lb 15.988 oz I&O: 06/19/18 06/20/18 06/21/18 06:59 06:59 06:59 Intake Total 30 Output Total 200 350 Balance -170 -350 Result Diagrams: 06/20/18 05:51 06/20/18 03:44 Additional Labs: Accuchecks 06/20/18 06:01 POC Glucose 102 Radiology Reviewed by me: Yes Phys Exam - Physical Examination Constitutional: NAD HEENT: PERRLA, moist MMs, sclera anicteric, TM's clear Neck: no nodes, no JVD, supple Respiratory: no wheezing, no rales, no rhonchi Cardiovascular: RRR, no significant murmur, no rub Gastrointestinal: soft, no distention, positive bowel sounds Musculoskeletal: no edema, pulses present Neurological: non-focal, normal sensation, moves all 4 limbs Lymphatic: no nodes Psychiatric: normal affect, A&O x 3 Skin: no rash, normal turgor, cap refill <2 seconds Dx/Plan (1) GI (gastrointestinal bleed) Code(s): K92.2 - GASTROINTESTINAL HEMORRHAGE, UNSPECIFIED Status: Suspected (2) End stage renal disease Code(s): N18.6 - END STAGE RENAL DISEASE Status: Acute (3) DM type 2 (diabetes mellitus, type 2) Status: Chronic Qualifiers: Comment: Continue Glipizide 5mg daily, ISS (4) HTN (hypertension) Code(s): I10 - ESSENTIAL (PRIMARY) HYPERTENSION Status: Chronic Qualifiers: Comment: Stable, continue current regimen - Plan cont current plan of care, plan discussed w/ family, DVT proph w/SCDs * Monitor H&H and other labs, currently stable * Nephrology following and planning PD later today * GI following, await recommendations for possible EGD * Hold home aspirin for now
[2018-06-20] MEDS: Pantoprazole 80 MG, Admixture Fee 1 EACH in Sodium Chloride 0.9% 100 ML IVP SCH ×2 (11:25→21:05)
[2018-06-20 12:23] LABS: Hemoglobin 11.1 g/dL (14.0-18.0)
[2018-06-20] MEDS ORDERED: PROPOFOL 200 MG/20 ML VIAL ONE (13:27)
[2018-06-20] MEDS ORDERED: Lidocaine 1% PF 5 ML VIAL ONE (13:27)
--- NOTE | 2018-06-20 13:43 | CON ---
DATE OF CONSULTATION: 06/20/2018 HISTORY OF PRESENT ILLNESS: The patient is a 58-year-old -[place] gentleman who was in his [facility] state of health until the day of admission when he developed abrupt onset nausea and vomiting, which was bloody. He reports the blood was bright red. He said he felt as if he had food in his [place] and it all came up. He has not had prior ulcer disease. He has not had prior upper GI bleeding. He reports he had an upper endoscopy several years ago for unknown reasons. He denies any melena. He does use NSAIDs on an intermittent basis. PAST MEDICAL HISTORY: Significant for coronary artery disease, sick sinus syndrome, pacemaker placem ent, diabetes mellitus, hyperlipidemia, hypertension, gout, end-stage renal disease on peritoneal chano lysis. PAST SURGICAL HISTORY: Includes a peritoneal dialysis catheter placement, pacemaker placement, back surgery, left knee replacement. SOCIAL HISTORY: He does smoke a half pack per day. Does not drink. ALLERGIES: No known allergies. MEDICATIONS: Include Glipizide 2.5 mg p.o. b.i.d., simvastatin 20 mg p.o. at bedtime, Renvela 2400 m g p.o. t.i.d. with meals, metoprolol 25 mg p.o. b.i.d., Rocaltrol 3 capsules p.o. daily, aspirin 325 mg p.o. daily, allopurinol 150 mg p.o. daily. FAMILY HISTORY: Negative. REVIEW OF SYSTEMS: Constitutional: No fever or chills, no weight loss. Eyes: No blurred vision or double vision. ENT: No sore throat or earaches. Cardiovascular: No chest pain or palpitations. Pulmonary: No shortness of breath, cough or wheezing. Gastrointestinal: See above. Genitourinary: No hematuria or dysuria. Musculoskeletal: No joint pain or muscle weakness. Skin: No rashes. N eurologic: No numbness or seizure activity. PHYSICAL EXAMINATION: GENERAL: Shows a well-developed, well-nourished gentleman in no acute distress. VITAL SIGNS: Temperature is 98.2, pulse 79, respiratory rate 16, blood pressure 124/72. HEENT: Unremarkable. NECK: Supple. CHEST: Clear. CARDIOVASCULAR: Regular rate and rhythm. ABDOMEN: Soft, nontender, without organomegaly or masses. Bowel sounds are present and normoactive. He has peritoneal dialysis catheter. EXTREMITIES: Normal. NEUROLOGIC: Nonfocal. LABORATORY DATA: Shows admission hemoglobin of 12.1, dropped to 10.3 and is back up to 11.1. PT is 14.4 with an INR of 1.1, CO2 16, BUN 48, creatinine is 8.16, glucose 110. ASSESSMENT: 1. Hematemesis. 2. End-stage renal disease on peritoneal dialysis. 3. Coronary artery disease. RECOMMENDATIONS: 1. EGD. 2. PPI.
--- NOTE | 2018-06-20 19:05 | PDOC.EVN ---
Event Note - Event Note Event Note: I have interviewed, examined, reviewed and discussed pt with STEFF Harp regarding hematemesis and ESRD with PD. VSS, LCTAB, abd soft, PD catheter in place. Plan for EGD, PPI and holding anticoagulation and NSAIDs. Dialysis per Renal service. Please see dictated H&P and progress notes for full details. Serial H/H monitoring.
[2018-06-20 19:57] LABS: Hemoglobin 11.1 g/dL (14.0-18.0)
[2018-06-20] MEDS ORDERED: Atorvastatin Calcium 10 MG TAB PO SCH (21:00)
--- NOTE | 2018-06-20 21:04 | OP ---
PREOPERATIVE DIAGNOSES: Upper gastrointestinal or hematemesis. PROCEDURE IN DETAIL: After informed consent was obtained, patient placed in left lateral decubitus p osition. Anesthesia was administered per the Anesthesia Department. Forward-viewing endoscope was i nserted into esophagus under direct visualization with ease and passed to the second portion of the d uodenum with ease. No blood was seen in the upper GI tract. In the duodenal bulb, two ulcers were n oted both had clean white bases. No active bleeding. The pylorus was somewhat deformed secondary to prior peptic ulcer disease. Biopsies were taken from the antrum for Helicobacter pylori. ASSESSMENT: 1. Duodenal ulcers x2 - no active bleeding or visible vessels. 2. Pyloric deformity secondary to prior peptic ulcer disease. 3. Otherwise, normal esophagogastroduodenoscopy. RECOMMENDATIONS: 1. Await Helicobacter pylori results, treated positive. 2. Stop NSAIDs. 3. PPI. 4. Stable for discharge from GI standpoint.
[2018-06-21 00:01] LABS: Hemoglobin 10.3 g/dL (14.0-18.0)
[2018-06-21] MEDS: Pantoprazole 80 MG, Admixture Fee 1 EACH in Sodium Chloride 0.9% 100 ML IVP SCH (07:11)
[2018-06-21 08:08] VITALS: BP 126/81; TEMP 98.1
[2018-06-21] MEDS: Allopurinol 300 MG TAB PO SCH (08:24)
[2018-06-21] MEDS: Sevelamer Carbonate 800 MG TAB PO SCH (08:24)
[2018-06-21] MEDS: Calcitriol 0.25 MCG CAP PO SCH (08:25)
--- NOTE | 2018-06-21 08:33 | PDOC.EVN ---
Event Note - Event Note Event Note: I have examined, interviewed and discussed patient at the time of discharge with Paul ARTIS regarding hematemesis and EGD showing duodenal ulcers x 2 likely from NSAID use. Continue PPI, avoid NSAIDs and monitor outpt CBC. VSS, LCTAB, CV S1, S2, Abd soft, NT, ND. Please see dictated discharge summary for full details.
--- NOTE | 2018-06-25 14:27 | EKG ---
Test Reason : CHEST PAIN Blood Pressure : / mmHG Vent. Rate : 119 BPM Atrial Rate : 119 BPM P-R Int : 182 ms QRS Dur : 086 ms QT Int : 294 ms P-R-T Axes : 006 037 019 degrees QTc Int : 413 ms Sinus tachycardia Otherwise normal ECG Confirmed by FRANK WOOD MD [id number] metropolitan editor ODIN CRUZ ([id number] on 06/25/2018 2:27:06 PM Referred By: Confirmed By:FRANK WOOD MD
== END 2018-06-21 10:06 | disposition home or self-care (01) ==
LOC: ERS 23:42 → 2SW 06-20 01:38
PROVIDERS: ADMIT Hospitalist; ATTEND Hospitalist
PROC: 0DB78ZX Excision of Stomach, Pylorus, Via Natural or Artificial Opening Endoscopic, Diagnostic (ICD-10-PCS; principal; 2018-06-20)
DX: K92.0 Hematemesis (principal); K29.50 Unspecified chronic gastritis without bleeding; K26.9 Duodenal ulcer, unspecified as acute or chronic, without hemorrhage or perforation; I25.10 Atherosclerotic heart disease of native coronary artery without angina pectoris; I49.5 Sick sinus syndrome; I12.0 Hypertensive chronic kidney disease with stage 5 chronic kidney disease or end stage renal disease; E11.22 Type 2 diabetes mellitus with diabetic chronic kidney disease; N18.6 End stage renal disease; E78.5 Hyperlipidemia, unspecified; E78.00 Pure hypercholesterolemia, unspecified; M10.9 Gout, unspecified; F17.210 Nicotine dependence, cigarettes, uncomplicated; F12.11 Cannabis abuse, in remission; F14.11 Cocaine abuse, in remission; D62 Acute posthemorrhagic anemia; E11.649 Type 2 diabetes mellitus with hypoglycemia without coma; Z79.82 Long term (current) use of aspirin; Z79.84 Long term (current) use of oral hypoglycemic drugs; Z79.899 Other long term (current) drug therapy; Z99.2 Dependence on renal dialysis; Z95.0 Presence of cardiac pacemaker
CPT/HCPCS: 43239; 71045; 80048; 80053; 82550; 82553; 82962 ×2; 83605; 83880; 84484 ×2; 85014; 85018; 85025; 85610; 85730; 86850; 86900; 86901; 88305; 88312; 93005; 96365; 96366; 96372; 96375; 96376; 99285; 99406; G0378; Q4081; 36415; 36416; 90945; C9113; G0257; J2001; J2405; J2704; J7050

== ENCOUNTER 2018-09-04 13:43 | Emergency (ER) | payer MEDICARE ==
[2018-09-04 14:51] LABS: #Basophils 0.1 thou/uL (0.0-0.2); #Eosinphils 0.4 thou/uL (0.0-0.7); #Lymphocytes 1.9 thou/uL (1.20-3.40); #Monocytes 0.7 thou/uL (0.11-0.59); #Neutrophils 7.4 thou/uL (1.40-6.50); %Basophils 0.8 % (0.0-1.0); %Lymphocytes 17.7 % (21.0-51.0); %Monocytes 6.9 % (0.0-10.0); %Neutrophils 70.6 % (42.0-75.0); Mean Corpuscular HGB CONC 34.8 g/dL (32.0-36.0); Mean Corpuscular Hemoglobin 33.2 pg (27.0-31.0); Mean Corpuscular Volume 95.5 fL (78.0-98.0); Mean Platelet Volume 7.1 fL (7.4-10.4); Platelet Count 285 thou/uL (130-400); RBC Distribution Width 13.5 % (11.5-14.5); Red Blood Cell (RBC) Count 3.61 mill/uL (4.70-6.10); White Blood Cell (WBC) Count 10.5 thou/uL (4.8-10.8)
--- NOTE | 2018-09-04 14:55 | RAD ---
SINGLE VIEW OF THE CHEST: COMPARISON: 06/20/2018. HISTORY: Back pain and abdominal pain. Vomiting 1 time. FINDINGS: A single view of the chest shows a normal-size cardiomediastinal silhouette. The pacemaker is unchan ged in position. There is no evidence of consolidation, mass, or pleural effusion. IMPRESSION: No evidence of acute cardiopulmonary disease. POS: [facility]
[2018-09-04 15:14] LABS: ALT (SGPT) 14 U/L (8-55); AST (SGOT) 14 U/L (5-34); Albumin 4.1 g/dL (3.5-5.0); Alkaline Phosphatase 96 U/L (40-150); Anion Gap 20 mmol/L (10-20); BUN (Urea Nitrogen) 42 mg/dL (8.4-25.7); Bilirubin, Total 0.3 mg/dL (0.2-1.2); Calc. Creatinine Clearance 0 mL/min (70-130); Calcium 9.6 mg/dL (7.8-10.44); Carbon Dioxide 14 mmol/L (22-29); Chloride 108 mmol/L (98-107); Estimated GFR-MDRD 8; Globulin 3.6 g/dL (2.4-3.5); Glucose 89 mg/dL (70-105); Lipase 106 U/L (8-78); Potassium 5.1 mmol/L (3.5-5.1); Protein, Total 7.7 g/dL (6.0-8.3); Sodium 137 mmol/L (136-145)
[2018-09-04] MEDS ORDERED: Ondansetron PF 4 MG/2 ML Vial ONE (15:21)
[2018-09-04 15:28] LABS: Bilirubin Negative (Negative); Blood, Urine Negative (Negative); Clarity CLEAR (Clear); Glucose, Urine (Dipstick) Negative (Negative); Leukocyte Negative (Negative); Nitrite Negative (Negative); Protein, Urine (Dipstick) 100 mg/dL (Neg-Trace); Urobilinogen 0.2 mg/dL (0.2-1.0); pH, Urine 7.5 (5.0-9.0)
[2018-09-04 15:31] LABS: Bacteria/HPF None Seen HPF (None Seen); Hyaline Casts/LPF 0-3 HYALINE CAST LPF (0-3 Hyaline); RBC/HPF None Seen HPF (0-3); Squamous Epithelial None Seen HPF (0-3); WBC/HPF None Seen HPF (0-3)
== END 2018-09-04 16:30 | disposition home or self-care (01) ==
LOC: ERS 13:43
DX: R11.2 Nausea with vomiting, unspecified (principal); R10.9 Unspecified abdominal pain; M54.9 Dorsalgia, unspecified; E11.9 Type 2 diabetes mellitus without complications; I10 Essential (primary) hypertension; F17.210 Nicotine dependence, cigarettes, uncomplicated; Z79.899 Other long term (current) drug therapy
CPT/HCPCS: 36415; 71045; 80053; 81003; 81015; 83690; 85025; 93005; 96374; J2405

== ENCOUNTER 2018-11-28 16:08 | Emergency (ER) | payer MEDICARE ==
[2018-11-28 16:38] LABS: #Basophils 0.1 thou/uL (0.0-0.2); #Eosinphils 0.4 thou/uL (0.0-0.7); #Lymphocytes 1.6 thou/uL (1.20-3.40); #Monocytes 0.6 thou/uL (0.11-0.59); #Neutrophils 8.3 thou/uL (1.40-6.50); %Basophils 0.6 % (0.0-1.0); %Lymphocytes 14.3 % (21.0-51.0); %Monocytes 5.7 % (0.0-10.0); %Neutrophils 75.4 % (42.0-75.0); Hemoglobin 10.8 g/dL (14.0-18.0); Mean Corpuscular HGB CONC 34.2 g/dL (32.0-36.0); Mean Corpuscular Hemoglobin 33.2 pg (27.0-31.0); Mean Corpuscular Volume 97.3 fL (78.0-98.0); Mean Platelet Volume 6.8 fL (7.4-10.4); Platelet Count 346 thou/uL (130-400); Red Blood Cell (RBC) Count 3.23 mill/uL (4.70-6.10)
[2018-11-28 16:42] LABS: Bilirubin Negative (Negative); Blood, Urine Trace (Negative); Clarity CLEAR (Clear); Glucose, Urine (Dipstick) Negative (Negative); Leukocyte Negative (Negative); Nitrite Negative (Negative); Protein, Urine (Dipstick) 100 mg/dL (Neg-Trace); Urobilinogen 0.2 mg/dL (0.2-1.0); pH, Urine 7.5 (5.0-9.0)
[2018-11-28 16:44] LABS: Bacteria/HPF None Seen HPF (None Seen); Hyaline Casts/LPF 0-3 HYALINE CAST LPF (0-3 Hyaline); RBC/HPF None Seen HPF (0-3); Squamous Epithelial None Seen HPF (0-3); WBC/HPF 0-3 HPF (0-3)
[2018-11-28 16:59] LABS: ALT (SGPT) 10 U/L (8-55); AST (SGOT) 16 U/L (5-34); Albumin 4.1 g/dL (3.5-5.0); Alkaline Phosphatase 96 U/L (40-150); Anion Gap 19 mmol/L (10-20); BUN (Urea Nitrogen) 61 mg/dL (8.4-25.7); Bilirubin, Total 0.4 mg/dL (0.2-1.2); Calc. Creatinine Clearance 0 mL/min (70-130); Calcium 9.8 mg/dL (7.8-10.44); Carbon Dioxide 22 mmol/L (22-29); Chloride 103 mmol/L (98-107); Estimated GFR-MDRD 5; Globulin 3.6 g/dL (2.4-3.5); Glucose 61 mg/dL (70-105); Lipase 166 U/L (8-78); Potassium 4.8 mmol/L (3.5-5.1); Protein, Total 7.7 g/dL (6.0-8.3); Sodium 139 mmol/L (136-145)
[2018-11-28] MEDS ORDERED: ISOVUE-370 76%-LOCM 1 ML ONE (17:09)
--- NOTE | 2018-11-28 18:57 | CT ---
CT Abdomen Pelvis W Con History: [Vomiting. Abdominal pain.] Comparison: CT abdomen and pelvis stone protocol 2012 Findings: Early changes of fibrosis both lower lobes. No pericardial effusion. Aortobiiliac stent graft in place excluding a aortic aneurysm. Kidneys are atrophic bilaterally. Hypo density interpolar left kidney measures greater than fluid attenuation, not changed since 2012. Catheter projects to the left hemiabdomen is coiled within the pelvis likely dialysis catheter. Normal proximal small bowel rotation. Celiac trunk and superior mesenteric arteries are patent. The a ppendix is visualized and is normal. No dilated loops of large or small bowel. Impression: No acute intra-abdominal abnormality. Chronic findings. Left renal hypodensity has not in creased in size in 2012 likely chronic proteinaceous/hemorrhagic cyst. No evidence for bowel obstruction.
== END 2018-11-28 19:32 | disposition home or self-care (01) ==
LOC: ERS 16:08
DX: R10.9 Unspecified abdominal pain (principal); I48.91 Unspecified atrial fibrillation; E11.9 Type 2 diabetes mellitus without complications; I10 Essential (primary) hypertension; M10.9 Gout, unspecified; I72.9 Aneurysm of unspecified site; F17.210 Nicotine dependence, cigarettes, uncomplicated
CPT/HCPCS: 36415; 74177; 80053; 81003; 81015; 83690; 85025; Q9966

== ENCOUNTER 2019-06-27 17:51 | Observation (INO) | payer MEDICARE ==
[2019-06-27] MEDS ORDERED: Pantoprazole 40 MG VIAL ONE (18:32)
[2019-06-27 18:39] LABS: #Eosinphils 0.4 thou/uL (0.0-0.7); #Lymphocytes 1.4 thou/uL (1.20-3.40); #Monocytes 0.8 thou/uL (0.11-0.59); #Neutrophils 7.2 thou/uL (1.40-6.50); %Basophils 0.2 % (0.0-1.0); %Eosinophils 4.2 % (0.0-10.0); %Monocytes 7.8 % (0.0-10.0); %Neutrophils 73.9 % (42.0-75.0); Hemoglobin 7.7 g/dL (14.0-18.0); Mean Corpuscular HGB CONC 35.1 g/dL (32.0-36.0); Mean Corpuscular Hemoglobin 32.5 pg (27.0-31.0); Mean Corpuscular Volume 92.4 fL (78.0-98.0); Mean Platelet Volume 6.3 fL (7.4-10.4); Platelet Count 298 thou/uL (130-400); RBC Distribution Width 15.9 % (11.5-14.5); Red Blood Cell (RBC) Count 2.36 mill/uL (4.70-6.10); White Blood Cell (WBC) Count 9.7 thou/uL (4.8-10.8)
[2019-06-27 18:44] LABS: INR-International Normal Ratio 1.1; PTT 31.8 SEC (22.9-36.1); Prothrombin Time 14.6 SEC (12.0-14.7)
--- NOTE | 2019-06-27 18:47 | RAD ---
Exam: Chest one view HISTORY:Dizziness Comparison: 09/04/2018 FINDINGS: Cardiac silhouette:Normal cardiac silhouette Pacemaker: Stable right-sided transvenous pacemaker. Aorta: Atherosclerosis Pulmonary vessels: Normal Costophrenic angles: Clear LUNGS: Slightly diminished lung volumes due to poor inspiratory effort. Chronic changes, without cons olidation or mass. Pneumothorax: None Osseous abnormalities: None IMPRESSION: No acute cardiopulmonary process. Atherosclerosis.
[2019-06-27 19:09] LABS: ALT (SGPT) 17 U/L (8-55); AST (SGOT) 14 U/L (5-34); Albumin 3.8 g/dL (3.4-4.8); Alkaline Phosphatase 77 U/L (40-110); Anion Gap 14 mmol/L (10-20); BUN (Urea Nitrogen) 76 mg/dL (8.4-25.7); Bilirubin, Total 0.3 mg/dL (0.2-1.2); Calc. Creatinine Clearance 0 mL/min (70-130); Calcium 9.5 mg/dL (7.8-10.44); Carbon Dioxide 25 mmol/L (23-31); Chloride 104 mmol/L (98-107); Estimated GFR-MDRD 5; Globulin 3.3 g/dL (2.4-3.5); Glucose 98 mg/dL (80-115); Lipase 135 U/L (8-78); Magnesium 2.1 mg/dL (1.6-2.6); Potassium 4.7 mmol/L (3.5-5.1); Protein, Total 7.1 g/dL (5.8-8.1); Sodium 138 mmol/L (136-145)
[2019-06-27 19:55] LABS: Bacteria/HPF None Seen HPF (None Seen); Bilirubin Negative (Negative); Blood, Urine Negative (Negative); Clarity Clear (Clear); Glucose, Urine (Dipstick) Normal (Negative); Leukocyte Negative Leu/uL (Negative); Nitrite Negative (Negative); Protein, Urine (Dipstick) 30 mg/dL (Neg-Trace); RBC/HPF None Seen HPF (0-3); Squamous Epithelial None Seen HPF (0-3); Urobilinogen Normal mg/dL (Less than 2); WBC/HPF 0-3 HPF (0-3)
--- NOTE | 2019-06-27 20:15 | CT ---
Exam: Chest CT with contrast HISTORY: Dizziness. Nausea. COMPARISON: None FINDINGS: Mediastinum: No mass, lymphadenopathy or hematoma. Aorta: Visualized aorta demonstrates minimal atherosclerosis. No aneurysm, dissection or periaortic f at stranding Upper abdomen: Grossly unremarkable Trachea and central bronchi: Patent Pleural spaces: No pleural effusion Pneumothorax: None Scattered emphysematous changes throughout the lung parenchyma predominantly peripheral in location. Minimal honeycombing in the right lower lobe. Right lung: No suspicious masses or consolidation. Left lung: No suspicious masses or consolidation. No osseous abnormalities Schmorl's nodes along the inferior endplate of the mid thoracic spine are no chelsi. IMPRESSION: Presumed chronic changes of the lung parenchyma. No suspicious masses or consolidation. Transcribed Date/Time: 06/27/2019 8:40 PM
--- NOTE | 2019-06-27 21:00 | CT ---
Exam: Abdomen CT without contrast Pelvic CT without contrast Comparison 11/28/2018 HISTORY: Diarrhea. Nausea and vomiting, x7 days FINDINGS: Abdomen CT: Changes lung bases as described in the postcontrast chest CT performed earlier today Limited evaluation of the solid organs by the lack of IV contrast. Grossly no solid organ abnormality No gastrohepatic, retrocrural or periportal lymphadenopathy Unremarkable gallbladder Mildly diminutive kidneys. Bilaterally no evidence of obstructive uropathy. There is a small amount o f hyperdensity in the intrarenal collecting system and extrarenal collecting system compatible with excretion of contrast. Stable hypodensity in the left renal cortex, likely representing a subcentimet er cyst. Symmetric attenuation of the psoas muscles No mesenteric mass, lymphadenopathy, free air or free fluid Limited evaluation of the alimentary canal by the lack of oral contrast. No evidence of small bowel o bstruction. Unremarkable ileocecal junction. Normal caliber appendix. An appendicolith is noted, without evidence of inflammation. Scattered fecal material in a nondistended, nondilated colon. Occas ional diverticulum. No diverticulitis. Note is made of a peritoneal dialysis catheter. There is evidence of an endovascular stent with 2 components involving both iliac arteries. Evaluatio n is limited due to technique. There does not appear to be any significant periaortic fat stranding. The aorta measures 3.2 x 3.2 cm in its maximum dimension. Previously, the aorta measured 3 [address] PELVIS: No mass, lymphadenopathy, free air or free fluid. Urinary bladder is unremarkable. Osseous structures: No lytic or blastic lesions IMPRESSION: 1. No evidence of bowel obstruction. 2. Scattered diverticula. No diverticulitis. 3. Appendicolith in a normal caliber appendix. 4. Though the patient undergoes peritoneal dialysis, there is evidence of excretion of recently admin istered intravenous contrast. Bladder is moderately filled with urine. 5. Endovascular stent in a known aneurysmal abdominal aorta. No evidence of obvious aortic dissection on this noncontrast study. Transcribed Date/Time: 06/27/2019 9:07 PM
[2019-06-27] MEDS ORDERED: Senokot S 8.6-50 MG TAB PO PRN (22:17)
[2019-06-27] MEDS ORDERED: Acetaminophen 325 MG TAB PO PRN (22:17)
[2019-06-27 22:24] LABS: Troponin I 0.012 ng/mL (< 0.028)
[2019-06-27] MEDS ORDERED: Dextrose 50% Abboject 50 ML SYRINGE SLOW IVP PRN (22:57)
[2019-06-27] MEDS ORDERED: Dextrose 5% in Water 1,000 ML IV PRN (22:57)
[2019-06-27] MEDS ORDERED: HumaLOG 300 UNITS/3 ML VIAL SC PRN (22:57)
--- NOTE | 2019-06-27 23:44 | HP ---
PRIMARY CARE PHYSICIAN: At [facility] in [place]. CHIEF COMPLAINT: Dizziness, weakness. HISTORY OF PRESENT ILLNESS: Mr. Hodges is a 59-year-old man who reported to the emergency room today for evaluation of dizziness with associated diarrhea, nausea, and vomiting for 7 days. The patient reports seeing dark blood in stools, was seen at [facility] ER yesterday for similar symptoms and was told he had a low hemoglobin, reports about 7. He is an end-stage renal patient, sees Dr. Gonzalez and does peritoneal dialysis nightly. He has not received blood in the last week or so. Reports that he was seen at [facility] about a month ago for similar symptoms, was given an upper and lower GI series in the endoscopy suite and reports that they did not find any bleeding. He was discharged from [facility] yesterday and asked to just follow up with Dr. Gonzalez today, but he was unable to get in to see him, so he came to the emergency room today for evaluation. He denies taking any anticoagulation medications, but does currently take an aspirin. In the emergency room, he was shown to have a hemoglobin 7.7, hematocrit 21.8, platelets are 298, creatinine at 13.8, BUN is 76, lipase at 135. Troponin undetectable. CT chest, abdomen, and pelvis unremarkable for acute findings. CT of the abdomen showed no evidence of bowel obstruction; scattered diverticula; appendicolith and a normal caliber appendix; evidence of excretion of recently administered IV contrast; bladder is moderately filled with urine and endovascular stent for a known AAA is noted. No evidence of obvious aortic dissection. ER did talk to Dr. Gonzalez, who would like him admitted, given 1 unit of packed red blood cells and he will order peritoneal dialysis for this evening. Occult blood hemoccults in the emergency room were negative. The patient was admitted in July of 2018 for similar symptoms, was seen to have some duodenal ulcers, but no active bleeding at that time. The patient will be admitted to the observation unit for further management. REVIEW OF SYSTEMS: The patient denies chills or fever. Does report some nausea and vomiting twice over the last week. Reports some palpitations. Denies any chest pain. Reports some dizziness. Denied any cough or shortness of breath. Reports some diarrhea. Denied any dysuria. All systems are reviewed and are negative unless mentioned above or in the HPI. PAST MEDICAL HISTORY: Atrial fibrillation, pacemaker, diabetes type 2, hyperlipidemia, hypertension, gout, end-stage renal disease, AAA surgically repaired. PAST SURGICAL HISTORY: Left knee pacemaker, AAA surgery, peritoneal dialysis catheter placement. PSYCHIATRIC HISTORY: None. SOCIAL HISTORY: The patient denies any alcohol use. He is a former drug user, abused cocaine and marijuana. Does smoke half a pack of cigarettes a day. Lives at home with his family. PHYSICAL EXAMINATION: VITAL SIGNS: Blood pressure 112/63, pulse is 101, respirations 16, temperature is 98.9, and pO2 sats are 100% on room air. CONSTITUTIONAL: The patient is alert and oriented to person, place and time. HEAD: Atraumatic and normocephalic. Eyes; eyelids are normal to inspection. Pupils are equally round and reactive to light. ENT: Mouth exam is normal. Mucous membranes are dry. NECK: Normal range of motion. Trachea is midline. RESPIRATORY: Chest; breath sounds are clear. Chest expansion is equal. CARDIOVASCULAR: Regular rate and rhythm. Heart sounds are normal. ABDOMEN: Mild tenderness to right lower quadrant. Peritoneal catheter port is noted on the left lower quadrant. No erythema, drainage, or swelling. BACK: Normal range of motion. No tenderness. EXTREMITIES: Upper extremity; normal range of motion, motor strength is normal, radial pulses are normal. Lower extremity; normal range of motion, motor strength is normal, pedal pulses are normal. NEUROLOGIC: The patient is oriented to person, place, and time. Speech is normal. Has horizontal nystagmus. SKIN: Warm, dry, normal in color. IMAGING: EKG shows beats per minute 99, first-degree AV block, no ectopics. ASSESSMENT AND PLAN: 1. Symptomatic anemia. Type and screen have been done. 1 unit of packed red blood cells are infusing. We will check iron studies in the morning. Retic count. Recheck a CBC. The patient is on a Protonix drip from the ER. We will ask for records from the last visit at [facility] where an upper and lower GI series was done. We will consult GI. The patient has a history of ulcers in the duodenum. We will repeat the Hemoccult. 2. History of end-stage renal disease, on peritoneal dialysis. Dr. Gonzalez was consulted from the ER and he will arrange for the patient to have peritoneal dialysis tonight. 3. Diabetes type 2. Accu-Cheks a.c. and at bedtime sliding scale insulin for coverage. 4. History of hypertension. We will restart home medications. 5. History of hyperlipidemia. We will restart home medications. 6. Gastrointestinal and deep venous thrombosis prophylaxis started. 7. Case discussed with Dr. Jefferson, who agrees with plan. Job ID: [id number]
[2019-06-28 01:26] LABS: Troponin I Less than 0.010 ng/mL (< 0.028)
[2019-06-28] MEDS: Pantoprazole 80 MG, Admixture Fee 1 EACH in Sodium Chloride 0.9% 100 ML IVPB SCH ×3 (04:53→23:07)
[2019-06-28] MEDS ORDERED: Famotidine 20 MG TAB PO SCH (09:00)
[2019-06-28] MEDS: Famotidine 20 MG TAB PO SCH (09:51)
[2019-06-28] MEDS: Calcitriol 0.25 MCG CAP PO SCH ×2 (10:28→12:42)
[2019-06-28] MEDS: Allopurinol 300 MG TAB PO SCH ×2 (10:28→12:42)
[2019-06-28] MEDS: Metoprolol Tartrate 25 MG TAB PO SCH ×3 (10:28→20:04)
--- NOTE | 2019-06-28 11:41 | PRG ---
DATE OF SERVICE: 06/28/2019 SUBJECTIVE: Mr. Hodges is a 59-year-old black male with ESRD-on peritoneal dialysis, who was admitted for presumed GI bleed. He was noted to be anemic and symptomatic. He received 1 unit packed RBC. This morning, he is feeling better. Of interest, the stool cards were said to be negative. A GI consult has been done. He has been started on IV Protonix. We are now consulted for his maintenance peritoneal dialysis. I did proceed with peritoneal dialysis last night for a duration of 8 hours using a 2 L exchange. OBJECTIVE: GENERAL: He is noted to be awake, alert, comfortable, not in distress. SKIN: Adequate turgor. HEENT: Slightly pale conjunctivae. Anicteric sclerae. NECK: No neck mass. No carotid bruits. No JVD. CHEST: No deformities. LUNGS: Clear breath sounds. HEART: Normal sinus rhythm. No murmur. No gallops. No rubs. ABDOMEN: Globular, soft, nontender. No masses. EXTREMITIES: No edema. No deformities. He does have a PD catheter on the belly. LABORATORY DATA: Laboratories of June 28, 2019; white count was 9.01, hemoglobin noted at 7.9, hematocrit 22.9, platelet count 287,000. Sodium 140, potassium 4.9, chloride 107, carbon dioxide 18, BUN 71, creatinine 12, glucose 120. AST 14, ALT 14. ASSESSMENT AND PLAN: 1. End-stage renal disease, stable. We will continue current peritoneal dialysis. I had set him up for an 8-hour duration of his PD with a 2 L fill volume and we are using currently a 1.5% PD solution. We are minimizing ultrafiltration due to the relatively low BP initially and tachycardia with this patient when he first came in. This morning, he is feeling better. We will continue current PD regimen. 2. Anemia. Continue IV Protonix. P.r.n. blood transfusion. 3. Awaiting GI consult. MEDICATIONS: Medications of June 28, 2019, was reviewed. Job ID: [id number] MTDD
--- NOTE | 2019-06-28 11:42 | PRG ---
DATE OF SERVICE: 06/28/2019 SUBJECTIVE: A 59-year-old male admitted last night. The patient has history of end-stage renal disease, on peritoneal dialysis. He does have some chronic anemia. He reports he is followed by Dr. Gonzalez fairly closely. The patient reports over the last couple of months he has noted some dark stools, which were not present prior to that time. Yesterday, he presented feeling generalized fatigue and was noted to be anemic. Of note, our computer system is down. The patient reports his hemoglobin was around 7. He did receive a unit of blood cells and is feeling significantly better. He is also receiving IV Protonix, and there was concern that the patient has something of a GI bleed. OBJECTIVE: GENERAL APPEARANCE: The patient is age appropriate. He is in no distress. HEART: Regular rate and rhythm. LUNGS: Clear. ABDOMEN: Soft, nontender, and nondistended. Positive bowel sounds. No masses. No organomegaly. EXTREMITIES: Without significant edema. NEUROLOGIC: The patient appears to be cognitively intact and spontaneously moving all extremities. IMPRESSION AND PLAN: 1. [id number] anemia. The patient is status post 1 unit of packed red blood cells, feeling significantly better. He is receiving Protonix. 2. Possible gastrointestinal bleed. Continue IV Protonix. GI consult pending. 3. End-stage renal disease. Continue with peritoneal dialysis and Nephrology is following. 4. Hypertension. Continue with his usual home medications. Job ID: [id number]
[2019-06-28] MEDS: Sevelamer Carbonate 800 MG TAB PO SCH ×3 (12:15→17:31)
[2019-06-28] MEDS ORDERED: Ondansetron PF 4 MG/2 ML Vial SLOW IVP PRN (15:02)
[2019-06-28] MEDS ORDERED: Ondansetron ODT 4 MG TAB PO PRN (15:02)
[2019-06-28 15:29] LABS: ALT (SGPT) 14 U/L (8-55); AST (SGOT) 14 U/L (5-34); Albumin 3.3 g/dL (3.4-4.8); Alkaline Phosphatase 72 U/L (40-110); Anion Gap 18 mmol/L (10-20); BUN (Urea Nitrogen) 71 mg/dL (8.4-25.7); Bilirubin, Total 0.4 mg/dL (0.2-1.2); Calc. Creatinine Clearance 0 mL/min (70-130); Calcium 9.3 mg/dL (7.8-10.44); Carbon Dioxide 18 mmol/L (23-31); Chloride 107 mmol/L (98-107); Estimated GFR-MDRD 5; Glucose 120 mg/dL (80-115); Potassium 4.9 mmol/L (3.5-5.1); Protein, Total 6.3 g/dL (5.8-8.1); Sodium 138 mmol/L (136-145)
[2019-06-28 15:43] LABS: Iron 99 ug/dL (65-175)
[2019-06-28 15:49] VITALS: BMI 30.4
[2019-06-28 16:20] LABS: Iron Binding Capacity, Total 221 mcg/dL (261-462)
--- NOTE | 2019-06-28 16:20 | CON ---
DATE OF CONSULTATION: 06/28/2019 REASON FOR CONSULTATION: Severe anemia, black stool. HISTORY OF PRESENT ILLNESS: Mr. Hodges is a 59-year-old male with end-stage renal disease on home peritoneal dialysis, who felt very dizzy and weak, which prompted him to go to present to initially to [facility] Emergency Room. Reportedly, his lab workup was unremarkable. He also had CT of the abdomen and chest that was unremarkable. The patient was subsequently discharged to home. The patient was unable to follow up to make outpatient followup and re-presented to [facility] ER with similar symptoms. He denies any nausea or vomiting. There is no localizing abdominal pain. No discomfort. He maintains fairly regular bowel function. He reports over the last week of having dark stools. When questioned further, he reports seeing black stool. He denies using any Pepto-Bismol usage. The patient did receive 1 units RBC transfusion, which has improved his symptoms significantly. Of note, he has had two stools that has been negative for occult blood. The patient has a history of duodenal ulcer on EGD, when he was admitted about a year ago in 05/2018. He also reports having a negative EGD and colonoscopy at [facility] for outpatient pretransplant evaluation about a month and a half ago. PAST MEDICAL HISTORY: 1. Adult onset diabetes. 2. Hypertension. 3. End-stage renal disease. 4. Atrial fibrillation. 5. History of pacemaker. 6. Status post aortic aneurysm repair. SOCIAL HISTORY: The patient does not consume alcohol. He does smoke a pack a day. Lives with his . FAMILY HISTORY: Negative for any known GI problem, liver disease, or GI malignancy. ALLERGIES: NONE. CURRENT MEDICATIONS: Include; 1. Renvela. 2. Glucotrol. 3. Simvastatin. 4. Metoprolol. 5. Rocaltrol. 6. Aspirin. 7. Allopurinol. 8. Cinacalcet. PHYSICAL EXAMINATION: VITAL SIGNS: Temperature is 98.8, blood pressure 121/74, and pulse of 80. GENERAL: He is alert and conversant, no distress. HEENT: Shows anicteric sclerae. Oropharynx is clear and moist. CV: Shows normal S1 and S2. Regular rate and rhythm. CHEST: Shows a breath sounds. ABDOMEN: Protuberant, but soft and nontender. No palpable mass or organomegaly. He has active bowel sounds. EXTREMITIES: Shows no edema. LABORATORY DATA: WBCs 9.7, hemoglobin 7.7 after 1 unit, MCV 92.4, and platelet count of 298. Electrolytes within normal range. Creatinine is 12.22 and BUN of 71. LFTs are normal. ASSESSMENT: 1. Symptomatic anemia with a presenting hemoglobin of 7, now 7.7 g - after 1 unit transfusion. He reports having dark black stool, but Hemoccult has been negative. His anemia could well be related to his renal failure. However, in setting of having prior duodenal ulcer bleed a year ago, his reported history of black stool could represent melena. 2. Of note, the patient had negative esophagogastroduodenoscopy and colonoscopy as outpatient at [facility] in [place] about a month and half ago. RECOMMENDATIONS: 1. Proceed with diagnostic upper endoscopy. 2. Continue pantoprazole in the meantime. 3. Can discharge home, if EGD is unremarkable. Job ID: [id number] [facility] HOSPITALDonna
[2019-06-28 16:40] LABS: Hemoglobin 8.5 g/dL (14.0-18.0)
[2019-06-28] MEDS ORDERED: Cinacalcet HCl 30 MG TAB PO SCH (17:00)
[2019-06-28 17:06] LABS: Reticulocyte Count 2.8 % (0.5-1.5)
[2019-06-28 17:07] LABS: #Eosinphils 0.4 thou/uL (0.0-0.7); #Lymphocytes 1.4 thou/uL (1.20-3.40); #Monocytes 0.6 thou/uL (0.11-0.59); #Neutrophils 6.6 thou/uL (1.40-6.50); %Basophils 0.4 % (0.0-1.0); %Eosinophils 4.1 % (0.0-10.0); %Lymphocytes 15.1 % (21.0-51.0); %Monocytes 7.1 % (0.0-10.0); %Neutrophils 73.3 % (42.0-75.0); Mean Corpuscular HGB CONC 34.9 g/dL (32.0-36.0); Mean Corpuscular Hemoglobin 32.2 pg (27.0-31.0); Mean Corpuscular Volume 92.4 fL (78.0-98.0); Mean Platelet Volume 6.7 fL (7.4-10.4); Platelet Count 287 thou/uL (130-400); RBC Distribution Width 17.3 % (11.5-14.5); Red Blood Cell (RBC) Count 2.48 mill/uL (4.70-6.10)
[2019-06-28] MEDS ORDERED: Atorvastatin Calcium 10 MG TAB PO SCH (21:00)
[2019-06-29] MEDS: Metoprolol Tartrate 25 MG TAB PO SCH (05:15)
[2019-06-29 07:29] LABS: #Eosinphils 0.4 thou/uL (0.0-0.7); #Lymphocytes 0.8 thou/uL (1.20-3.40); #Monocytes 0.6 thou/uL (0.11-0.59); #Neutrophils 6.3 thou/uL (1.40-6.50); %Basophils 0.1 % (0.0-1.0); %Eosinophils 4.6 % (0.0-10.0); %Lymphocytes 9.8 % (21.0-51.0); %Monocytes 7.9 % (0.0-10.0); %Neutrophils 77.6 % (42.0-75.0); Hemoglobin 7.7 g/dL (14.0-18.0); Mean Corpuscular HGB CONC 34.6 g/dL (32.0-36.0); Mean Corpuscular Hemoglobin 31.6 pg (27.0-31.0); Mean Corpuscular Volume 91.4 fL (78.0-98.0); Mean Platelet Volume 6.5 fL (7.4-10.4); Platelet Count 273 thou/uL (130-400); RBC Distribution Width 17.2 % (11.5-14.5); Red Blood Cell (RBC) Count 2.43 mill/uL (4.70-6.10); White Blood Cell (WBC) Count 8.1 thou/uL (4.8-10.8)
[2019-06-29 07:35] LABS: Anion Gap 16 mmol/L (10-20); BUN (Urea Nitrogen) 61 mg/dL (8.4-25.7); Calc. Creatinine Clearance 9 mL/min (70-130); Calcium 8.3 mg/dL (7.8-10.44); Carbon Dioxide 21 mmol/L (23-31); Chloride 106 mmol/L (98-107); Estimated GFR-MDRD 6; Glucose 97 mg/dL (80-115); Potassium 4.8 mmol/L (3.5-5.1); Sodium 138 mmol/L (136-145)
[2019-06-29] MEDS: Sevelamer Carbonate 800 MG TAB PO SCH ×3 (08:21→12:31)
[2019-06-29] MEDS: Calcitriol 0.25 MCG CAP PO SCH ×2 (08:21→08:29)
[2019-06-29] MEDS: Allopurinol 300 MG TAB PO SCH ×2 (08:22→08:29)
[2019-06-29] MEDS: Famotidine 20 MG TAB PO SCH ×2 (08:22→08:30)
[2019-06-29] MEDS ORDERED: Epoetin (ESRD) 20,000 UNITS/ML SC SCH (08:45)
--- NOTE | 2019-06-29 08:55 | PRG ---
DATE OF SERVICE: 06/29/2019 SUBJECTIVE: Mr. Hodges is a 59-year-old black male with ESRD - currently on maintenance peritoneal dialysis. He did undergo peritoneal dialysis last night without any difficulty. He is doing well. In addition, he was initially admitted for symptomatic anemia. GI has been consulted. The plan is for him to undergo an upper GI endoscopy. Please note, back on June 27, 2019, the patient underwent a CT of the abdomen. No evidence of an acute abdomen was noted. No evidence of diverticulitis. The patient denies any chest pain or shortness of breath. OBJECTIVE: VITAL SIGNS: Blood pressure 109/60, heart rate 86, respiratory rate 18, temperature 98.4, and pulse ox 97%. GENERAL: Noted to be awake, alert, and comfortable, not in distress. SKIN: Adequate turgor. HEENT: He has a slightly pale conjunctivae. Anicteric sclerae. No neck mass. No carotid bruits. No JVD. CHEST: No deformities. LUNGS: Clear breath sounds. No wheezing. No crackles. HEART: Normal sinus rhythm. No murmur. No gallops. No rubs. ABDOMEN: Globular, soft, nontender, no masses. Positive for PD catheter. EXTREMITIES: No edema. No deformities. MEDICATIONS: Of June 29, 2019, were reviewed. LABORATORY DATA: Of June 29, 2019: White count 8.1, hemoglobin 7.7. Sodium 138, potassium 4.8, chloride 106, carbon dioxide 21, BUN 61, creatinine 11.2, glucose 97, calcium 8.3. ASSESSMENT AND PLAN: 1. Symptomatic anemia - the patient being ruled out for GI bleed. GI has been consulted and the plan is for him to undergo upper GI endoscopy. Currently, on IV Protonix. We will also supplement him with his weekly Epogen. 2. End-stage renal disease, stable, tolerating current peritoneal dialysis regimen. Fluid removal was tolerated. Adjust PD solution as needed. Overall, agree with current management. We will recheck basic metabolics and CBC in a.m. Job ID: [id number]
[2019-06-29] MEDS ORDERED: EPOETIN ALFA-EPBX (ESRD) 4,000 UNIT/ML VIAL SC SCH (09:00)
[2019-06-29] MEDS ORDERED: Promethazine HCl 25 MG/ML VIAL IM PRN (10:39)
[2019-06-29] MEDS ORDERED: Promethazine HCl 25 MG/ML VIAL SLOW IVP PRN (10:39)
[2019-06-29] MEDS ORDERED: Ondansetron HCl/PF 4 MG/2 ML Vial IVP PRN (10:39)
--- NOTE | 2019-06-29 11:50 | OP ---
DATE OF PROCEDURE: 06/29/2019 PROCEDURE PERFORMED: Esophagogastroduodenoscopy with control of hemorrhage. PREOPERATIVE DIAGNOSES: 1. Gastrointestinal bleed. 2. Anemia of acute blood loss. 3. Chronic anemia secondary to renal failure. DESCRIPTION OF PROCEDURE: Informed consent was obtained from the patient. He was sedated with total intravenous anesthesia. The bite block was placed and the endoscope was advanced easily to the second portion of the duodenum and retroflexion was performed in the stomach. The esophagus was normal. The GE junction was normal. The stomach was normal including retroflex views. The pylorus was normal. The first and second portions of the duodenum had a couple of tiny erosions, measuring 1 to 2 mm, with no stigmata of recent bleeding. These would not be a significant bleeding source. Noted back in 05/2018, he did have a couple of duodenal ulcers and these appeared to have healed. He had biopsies back in 05/2018 of the stomach, that were negative for H. pylori. Proceeding with this procedure note. There were also two tiny arteriovenous malformations in the first and second portions of the duodenum. These measured 1 mm in size. These were both cauterized with argon plasma coagulation. They were not actively bleeding. The more distal portion of the second portion of the duodenum was normal. Air was suctioned from the stomach. The procedure was completed. IMPRESSION: 1. 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 These were cauterized with argon plasma coagulation. There was no active bleeding and I doubt these were a significant source of bleeding originally. He has brown solid stool on rectal exam now. I suspect his anemia is more likely secondary to the chronic renal insufficiency. 2. A couple of 1 to 2 mm erosions were noted in the first and second portions of the duodenum as well. Again, these are not a significant bleeding source. He tested negative for Helicobacter pylori back a year ago with gastric biopsies. RECOMMENDATIONS: 1. Proton pump inhibitor daily. 2. He will receive epoetin per Nephrology. 3. I will sign off. Please call if GI can be of assistance. He can be discharged from a GI standpoint. Job ID: [id number]
[2019-06-29] MEDS ORDERED: PROPOFOL 200 MG/20 ML VIAL ONE (12:10)
[2019-06-29] MEDS ORDERED: Lidocaine 1% PF 5 ML VIAL ONE (12:10)
[2019-06-29] MEDS: Pantoprazole 80 MG, Admixture Fee 1 EACH in Sodium Chloride 0.9% 100 ML IVPB SCH (13:42)
[2019-06-29 15:08] VITALS: BP 120/62; TEMP 98.5
--- NOTE | 2019-06-30 09:35 | PDOC.EVN ---
Event Note - Event Note Event Note: Discussed the patient's case with Dr. Gonzalez. Made him aware of the findings on endoscopy, the hemoglobin, retic numbers. Also discussed his VS at discharge. He will indicated he will follow up with him.
--- NOTE | 2019-06-30 20:16 | DIS ---
DATE OF ADMISSION: 06/27/2019 DATE OF DISCHARGE: 06/29/2019 DISCHARGE DIAGNOSES: 1. Symptomatic anemia. 2. End-stage renal disease, on peritoneal dialysis. 3. Diabetes mellitus. 4. Hypertension. 5. Hyperlipidemia. 6. Tobacco abuse. 7. History of very small gastric arteriovenous malformations which were cauterized and not felt to be a significant source of bleeding. 8. 1 to 2 mm duodenal erosions, again not felt to be source of bleeding. HISTORY OF PRESENT ILLNESS: This patient is a 59-year-old male with a history of end-stage renal disease, on peritoneal dialysis, followed by Dr. Gonzalez, who presented with some generalized weakness and dizziness. The patient reported seeing dark stools for a couple of months prior to his admission. He had been seen in [facility] Emergency Department and was told he had a low hemoglobin. He was discharged to follow up with Dr. Gonzalez, but was unable to get in to see him, so he presented to the emergency department, where his repeat hemoglobin was 7.7. Hemoccults at that time were negative, however the patient had a history of duodenal ulcers in July. HOSPITAL COURSE: The patient was admitted to the hospital in observation status. Dr. Gonzalez was consulted and the patient continued on his peritoneal dialysis. A CT abdomen and pelvis failed to reveal any significant new pathology. Chest x-ray was negative other than some chronic catheter or atherosclerosis. CT of the chest showed presumed chronic changes, but nothing acute. The patient did receive 1 unit of blood and felt substantially better and he remained asymptomatic throughout his stay. He was seen in consultation by GI and ultimately did undergo endoscopy, which revealed very small gastric AVMs described as "tiny." It was not felt that these were likely sources of bleeding; however, they were cauterized and he also had 1 -2 mm erosions in the first and second portion of the duodenum, which were again not felt to be sources of bleeding. The patient did have an additional Hemoccult checked that was also negative and therefore, it was the assessment of GI that the patient was not having acute bleeding from the GI tract and that his anemia was likely related to chronic kidney disease. He did have elevated reticulocyte count at 2.8, which was still felt to be likely relatively low given the degree of the anemia was supporting the idea that this was related to his chronic kidney disease. With the patient being symptomatically better and his hemoglobin ranging from 7.7-8.5, he was felt to be stable for discharge to have outpatient followup with Dr. Gonzalez. This was arranged. All the patient's questions were answered. At the time of discharge, temperature was 98.5, pulse was 85, respirations 16, O2 saturation was 99% on room air. He did have some positive orthostatic vital signs, but was asymptomatic with that and his blood pressure at baseline was 120/62. Follow up: follow up with Dr. Gonzalez. I discussed the patient's situation with Dr. Gonzalez. He will follow up with the patient. The patient will continue his home medications as usual, renal diet, activity as tolerated. Job ID: [id number] MTDD
== END 2019-06-29 16:53 | disposition home or self-care (01) ==
LOC: ERS 17:51 → 2SW 23:57
PROVIDERS: ADMIT Internal Medicine; ATTEND Internal Medicine
PROC: 0W3P8ZZ Control Bleeding in Gastrointestinal Tract, Via Natural or Artificial Opening Endoscopic (ICD-10-PCS; principal; 2019-06-29)
DX: K55.20 Angiodysplasia of colon without hemorrhage (principal); I12.0 Hypertensive chronic kidney disease with stage 5 chronic kidney disease or end stage renal disease; E11.22 Type 2 diabetes mellitus with diabetic chronic kidney disease; N18.6 End stage renal disease; E78.5 Hyperlipidemia, unspecified; D63.1 Anemia in chronic kidney disease; Z99.2 Dependence on renal dialysis; Z95.0 Presence of cardiac pacemaker; Z98.890 Other specified postprocedural states; F17.210 Nicotine dependence, cigarettes, uncomplicated; Z79.82 Long term (current) use of aspirin; Z79.899 Other long term (current) drug therapy; Z79.84 Long term (current) use of oral hypoglycemic drugs
CPT/HCPCS: 36430; 43255; 71045; 71260; 74176; 80048; 80053 ×2; 82274 ×2; 82728; 82962 ×2; 83540; 83550; 83605; 83690; 83735; 84484 ×3; 85014; 85018; 85025 ×3; 85046; 85610; 85730; 86850; 86900; 86901; 86920; 93005; 94760; 96361; 96365; 96366; 96376; 99285; P9016; Q5105; 36415; 36416; 81003; 81015; 96372; C9113; G0378; J2001; J2704; J3490; Q0162

== ENCOUNTER 2019-07-08 18:48 | Inpatient (IN) | payer MEDICARE ==
[2019-07-08 19:49] LABS: #Basophils 0.1 thou/uL (0.0-0.2); #Eosinphils 0.5 thou/uL (0.0-0.7); #Lymphocytes 1.2 thou/uL (1.20-3.40); #Monocytes 0.8 thou/uL (0.11-0.59); #Neutrophils 7.7 thou/uL (1.40-6.50); %Basophils 0.6 % (0.0-1.0); %Eosinophils 5.2 % (0.0-10.0); %Lymphocytes 11.9 % (21.0-51.0); %Monocytes 8.1 % (0.0-10.0); %Neutrophils 74.2 % (42.0-75.0); Hemoglobin 5.7 g/dL (14.0-18.0); Mean Corpuscular HGB CONC 35.5 g/dL (32.0-36.0); Mean Corpuscular Hemoglobin 33.1 pg (27.0-31.0); Mean Corpuscular Volume 93.1 fL (78.0-98.0); Mean Platelet Volume 6.1 fL (7.4-10.4); Platelet Count 265 thou/uL (130-400); RBC Distribution Width 17.4 % (11.5-14.5); Red Blood Cell (RBC) Count 1.71 mill/uL (4.70-6.10); White Blood Cell (WBC) Count 10.3 thou/uL (4.8-10.8)
[2019-07-08 20:07] LABS: ALT (SGPT) 8 U/L (8-55); AST (SGOT) 11 U/L (5-34); Albumin 3.4 g/dL (3.4-4.8); Alkaline Phosphatase 69 U/L (40-110); Anion Gap 21 mmol/L (10-20); BUN (Urea Nitrogen) 83 mg/dL (8.4-25.7); Bilirubin, Total 0.3 mg/dL (0.2-1.2); Calc. Creatinine Clearance 0 mL/min (70-130); Calcium 8.8 mg/dL (7.8-10.44); Carbon Dioxide 17 mmol/L (23-31); Chloride 104 mmol/L (98-107); Estimated GFR-MDRD 4; Globulin 2.8 g/dL (2.4-3.5); Glucose 94 mg/dL (80-115); Protein, Total 6.2 g/dL (5.8-8.1); Sodium 137 mmol/L (136-145)
[2019-07-08] MEDS ORDERED: Pantoprazole 80 MG, Admixture Fee 1 EACH in Sodium Chloride 0.9% 100 ML IVPB SCH (20:30)
--- NOTE | 2019-07-08 22:34 | PDOC.EVN ---
Event Note - Event Note Event Note: [id number]
[2019-07-08 22:36] LABS: Hemoglobin 5.7 g/dL (14.0-18.0)
--- NOTE | 2019-07-08 23:34 | HP ---
CHIEF COMPLAINT: Abnormal labs. HISTORY OF PRESENT ILLNESS: Mr. Hodges is a 59-year-old male with past medical historyof end-stage renal disease, on peritoneal dialysis, atrial fibrillation, cardiac pacemaker, diabetes mellitus type 2, hyperlipidemia, hypertension, GI bleed, presents to the emergency room with abnormal labs. The patient was told that he has elevated potassium and was sent to the ER by Dr. Gonzalez, contact center manager. Also, the patient endorses black tarry stools. The patient had two GI ulcers repaired 2 weeks ago in the hospital. He was given blood at that time. Today, on workup, the patient had a potassium of 5.0, but his hemoglobin level went down to 5.7. His baseline is between 7 to 8. The patient is being admitted to the hospital. Started on IV proton pump inhibitor. Hemoglobin and hematocrit are being monitored. ED physician ordered 1 unit of packed RBCs. The patient's contact center manager is being consulted. PAST MEDICAL HISTORY: As mentioned above in history of present illness. PAST SURGICAL HISTORY: 1. Left knee surgery. 2. AAA correction, back surgery, peritoneal dialysis catheter placement. 3. Pacemaker. SOCIAL HISTORY: Denies alcohol drinking. The patient is a former drug user. Used to abuse cocaine and abuse marijuana. He smokes cigarettes. Lives at home. FAMILY HISTORY: Reviewed and noncontributory. CURRENT MEDICATIONS: Please see home medication reconciliation form for updated medications. ALLERGIES: NO KNOWN ALLERGIES. REVIEW OF SYSTEMS: Review of 14 systems is negative except what is mentioned in history of present illness. PHYSICAL EXAMINATION: GENERAL: The patient is awake, alert, does not appear to be in acute distress. VITAL SIGNS: Blood pressure is 133/74, pulse is 93, respiratory rate is 14, and temperature is 98.6. HEAD AND NECK: Normocephalic and atraumatic. NECK: Supple. No JVD. CHEST: Fair bilateral air entry. HEART: S1 and S2, regular. ABDOMEN: Soft and nontender. Bowel sounds present. NEUROLOGIC: Awake, alert, and oriented x3. PSYCHIATRIC: Normal mood. EXTREMITIES: No clubbing or cyanosis. LABORATORY DATA: As mentioned above in history of present illness. ASSESSMENT: 1. Anemia secondary to blood loss. 2. Gastrointestinal bleeding ? acute. 3. History of bleeding ulcers. 4. End-stage renal disease, on peritoneal dialysis. 5. Diabetes mellitus, type 2. 6. Hyperlipidemia. 7. Hypertension. 8. Cardiac pacemaker. PLAN: 1. Admit. 2. Monitor hemoglobin and hematocrit. 3. IV proton pump inhibitor. 4. Transfuse 1 unit of packed RBC, ordered by ED physician. 5. Consult the patient's contact center manager. The patient is on peritoneal dialysis. 6. Reconcile home medications. 7. DVT prophylaxis as appropriate. 8. Expected length of stay 2 midnights or more. Job ID: [id number]
[2019-07-08 23:54] VITALS: BMI 27.6
[2019-07-09] MEDS: Sodium Chloride 0.9% 1,000 ML IV SCH (00:20)
[2019-07-09 08:35] LABS: #Eosinphils 0.4 thou/uL (0.0-0.7); #Lymphocytes 1.1 thou/uL (1.20-3.40); #Monocytes 0.7 thou/uL (0.11-0.59); #Neutrophils 6.8 thou/uL (1.40-6.50); %Basophils 0.5 % (0.0-1.0); %Eosinophils 4.7 % (0.0-10.0); %Lymphocytes 12.4 % (21.0-51.0); %Monocytes 7.2 % (0.0-10.0); %Neutrophils 75.1 % (42.0-75.0); Hemoglobin 8.3 g/dL (14.0-18.0); Mean Corpuscular HGB CONC 34.4 g/dL (32.0-36.0); Mean Corpuscular Hemoglobin 31.9 pg (27.0-31.0); Mean Corpuscular Volume 92.5 fL (78.0-98.0); Mean Platelet Volume 6.3 fL (7.4-10.4); Platelet Count 261 thou/uL (130-400); Red Blood Cell (RBC) Count 2.62 mill/uL (4.70-6.10); White Blood Cell (WBC) Count 9.1 thou/uL (4.8-10.8)
[2019-07-09 08:36] LABS: Hemoglobin 8.3 g/dL (14.0-18.0)
[2019-07-09 08:37] LABS: #Eosinphils 0.4 thou/uL (0.0-0.7); #Lymphocytes 1.1 thou/uL (1.20-3.40); #Monocytes 0.6 thou/uL (0.11-0.59); #Neutrophils 6.3 thou/uL (1.40-6.50); %Basophils 0.2 % (0.0-1.0); %Lymphocytes 13.2 % (21.0-51.0); %Monocytes 6.7 % (0.0-10.0); Hemoglobin 8.3 g/dL (14.0-18.0); Mean Corpuscular HGB CONC 35.1 g/dL (32.0-36.0); Mean Corpuscular Hemoglobin 32.6 pg (27.0-31.0); Mean Corpuscular Volume 92.9 fL (78.0-98.0); Mean Platelet Volume 6.3 fL (7.4-10.4); Platelet Count 273 thou/uL (130-400); RBC Distribution Width 15.9 % (11.5-14.5); Red Blood Cell (RBC) Count 2.55 mill/uL (4.70-6.10); White Blood Cell (WBC) Count 8.5 thou/uL (4.8-10.8)
[2019-07-09 08:52] LABS: Anion Gap 20 mmol/L (10-20); BUN (Urea Nitrogen) 77 mg/dL (8.4-25.7); Calc. Creatinine Clearance 7 mL/min (70-130); Calcium 8.4 mg/dL (7.8-10.44); Carbon Dioxide 17 mmol/L (23-31); Chloride 106 mmol/L (98-107); Estimated GFR-MDRD 4; Glucose 83 mg/dL (80-115); Potassium 4.8 mmol/L (3.5-5.1); Sodium 138 mmol/L (136-145)
[2019-07-09] MEDS ORDERED: EPOETIN ALFA-EPBX (ESRD) 10,000 UNIT/ML VIAL SC SCH (09:30)
--- NOTE | 2019-07-09 09:50 | PRG ---
DATE OF SERVICE: 07/09/2019 SUBJECTIVE: Mr. Hodges is a 59-year-old black male with ESRD, currently on peritoneal dialysis. He was admitted for symptomatic anemia. The patient complained of having some tarry stools again. We did recheck his hemoglobin last week, and it was noted to be above 7-?7.4. We adjusted his Mircera to help improve the anemia. However, he became symptomatic, and at the ER, he was noted to have hemoglobin of 5.7. He received 1 unit of packed RBC. He is feeling better. No other complaints. No chest pain or shortness of breath. OBJECTIVE: VITAL SIGNS: Blood pressure is 124/61, heart rate 89, respiratory rate 16, temperature 98, pulse ox 99%. GENERAL: Noted to be awake, alert, comfortable, not in distress. SKIN: Adequate turgor. HEENT: Slightly pale conjunctivae. Anicteric sclerae. NECK: No neck mass. No carotid bruits. No JVD. CHEST: No deformities. LUNGS: Clear breath sounds. No wheezing. No crackles. HEART: Normal sinus rhythm. No murmur. No gallops. No rubs. ABDOMEN: Globular, soft, and nontender. No masses. Positive for PD catheter. EXTREMITIES: No edema. No deformities. MEDICATIONS: Medications of July 09, 2019, were reviewed. LABORATORY DATA: Laboratories of July 09, 2019: White count 9.1, hemoglobin 8.3. Sodium 138, potassium 4.8, chloride 106, carbon dioxide 17, BUN 77, creatinine 13.86, lipase 150, calcium 8.4. ASSESSMENT AND PLAN: 1. Symptomatic anemia - rule out recurrent gastrointestinal bleed. GI consult has been done. Continue Protonix. 2. Chronic anemia. We will restart back Epogen 10,000 units subcutaneously q.week. 3. End-stage renal disease. Continuing current CCPD regimen. The patient underwent peritoneal dialysis this morning, and we are still continuing PD management. However, we noted that there was some impairment in the PD outflow tract. We did note that the PD fluid has fibrin, and for that reason, we will incorporate heparin in the PD fluid. Continue supportive care. Recheck CBC and basic metabolic panel in a.m. We will continue current CCPD regimen nightly, nocturnal. Job ID: [id number]
[2019-07-09] MEDS ORDERED: Sterile Water 10 ML VIAL IVP SCH (12:21)
[2019-07-09] MEDS ORDERED: Activase 2 MG VIAL CATH SCH (12:21)
[2019-07-09] MEDS ORDERED: Heparin 10,000 UNITS/ 10 ML VIAL CATH SCH (12:30)
[2019-07-09] MEDS ORDERED: Calcitriol 0.25 MCG CAP PO SCH (12:45)
--- NOTE | 2019-07-09 14:29 | PDOC.HOSPP ---
- Subjective Subjective: Feels better. No complaints now except being hungry. Had black tarry stools and acutely worsening anemia. - Objective Vital Signs & Weight: Vital Signs (12 hours) Temp Pulse Pulse Resp BP BP BP 07/09/19 11:41 98.1 F 92 18 155/67 H 07/09/19 08:15 98.4 F 84 18 124/61 07/09/19 07:49 98.0 F 89 16 108/75 07/09/19 05:13 97.9 F 86 18 132/69 07/09/19 04:58 98.2 F 90 17 134/65 07/09/19 04:36 98.2 F 87 19 133/71 07/09/19 04:00 98.1 F 88 BP Pulse Ox 07/09/19 11:41 100 07/09/19 08:15 98 07/09/19 07:49 99 07/09/19 05:13 07/09/19 04:58 07/09/19 04:36 07/09/19 04:00 131/66 97 Weight Weight 197 lb 11.2 oz I&O: 07/08/19 07/09/19 07/10/19 06:59 06:59 06:59 Intake Total 700 350 Output Total 375 Balance 325 350 Result Diagrams: 07/09/19 08:20 07/09/19 08:20 Hospitalist ROS - Medication Medications: Active Medications Generic Name Dose Route Start Last Admin Trade Name Freq PRN Reason Stop Dose Admin Calcitriol 1 mcg 07/09/19 12:45 07/09/19 13:39 Rocaltrol PO 07/09/19 14:45 1 mcg NOW SUZETTE Administration Epoetin Maximo-epbx 10,000 unit 07/09/19 09:30 07/09/19 11:46 Retacrit SC 10,000 unit Q7D SUZETTE Administration Sodium Chloride 1,000 mls @ 30 mls/hr 07/08/19 21:00 07/09/19 00:20 Normal Saline 0.9% IV 1,000 mls .Q24H SUZETTE Administration - Exam General Appearance: NAD, awake alert Heart: RRR, no murmur, no gallops, no rubs, normal peripheral pulses Respiratory: CTAB, no wheezes, no rales, no ronchi, normal chest expansion, no tachypnea, normal percussion Gastrointestinal: soft, non-tender, non-distended, normal bowel sounds, no palpable masses, no hepatomegaly, no splenomegaly, no bruit Extremities: no cyanosis, no clubbing, no edema Skin: normal turgor Neurological: no focal deficits Musculoskeletal: normal tone, normal strength, no muscle wasting Psychiatric: normal affect, normal behavior, A&O x 3 Hosp A/P (1) Acute blood loss anemia Code(s): D62 - ACUTE POSTHEMORRHAGIC ANEMIA Status: Acute (2) ESRD (end stage renal disease) on dialysis Code(s): N18.6 - END STAGE RENAL DISEASE; Z99.2 - DEPENDENCE ON RENAL DIALYSIS Status: Acute (3) Hx of gastric ulcer Code(s): Z87.19 - PERSONAL HISTORY OF OTHER DISEASES OF THE DIGESTIVE SYSTEM Status: Acute (4) CAD (coronary artery disease) Code(s): I25.10 - ATHSCL HEART DISEASE OF [place] CORONARY ARTERY W/O ANG PCTRS Status: Chronic Qualifiers: (5) DM type 2 (diabetes mellitus, type 2) Status: Chronic Qualifiers: (6) Dyslipidemia Code(s): E78.5 - HYPERLIPIDEMIA, UNSPECIFIED Status: Chronic (7) HTN (hypertension) Code(s): I10 - ESSENTIAL (PRIMARY) HYPERTENSION Status: Chronic Qualifiers: (8) Tobacco abuse Code(s): Z72.0 - TOBACCO USE Status: Chronic (9) GI (gastrointestinal bleed) Code(s): K92.2 - GASTROINTESTINAL HEMORRHAGE, UNSPECIFIED Status: Suspected - Plan Findings consistent with UGIB Especially true in a patient with hx of PUD. Stool was heme negative here. PPI GI consult. Given the hour and day, suspect he will not get scoped today unless emergent. Clear liquid diet. Transfused. Subsequent hgb improved. Continue to monitor. Nephrology consult. Continue PD. Continue home metoprolol for htn Home meds for DM Accuchecks. Home statin.
[2019-07-09 14:52] LABS: Hemoglobin 9.2 g/dL (14.0-18.0)
[2019-07-09] MEDS: Sevelamer Carbonate 800 MG TAB PO SCH (16:23)
[2019-07-09] MEDS: Cinacalcet HCl 30 MG TAB PO SCH (16:23)
[2019-07-09] MEDS: glipiZIDE 5 MG TAB PO SCH (16:23)
--- NOTE | 2019-07-09 21:18 | CON ---
DATE OF CONSULTATION: 07/09/2019 REQUESTING PHYSICIAN: Dr. Perez. REASON FOR CONSULTATION: Melena and anemia. HISTORY OF PRESENT ILLNESS: Sachin Hodges is a very pleasant 59-year-old man with a history of end-stage renal disease, on peritoneal dialysis, also atrial fibrillation with a cardiac pacemaker. Notably, Mr. Stephenson has undergone recent upper and lower endoscopy at [facility] in [place] as part of pretransplant evaluation. Within the past couple of weeks, he was briefly hospitalized here earlier this month with symptomatic anemia and reports of black stools. He was seen by Dr. Burgos at that time. He had had a prior history of duodenal ulcer on EGD in 05/2018, but negative EGD and colonoscopy at [facility] about a month and a half ago. The patient's hemoglobin was 7.5 to 8 during this recent hospitalization. He underwent EGD with Dr. Ingram on 06/29/2019. He was found to have two tiny AVMs in the proximal duodenum which were cauterized with APC, but not thought to be a significant source of bleeding. He also had a couple of tiny erosions in the proximal duodenum, which were also not felt to be significant bleeding source. The patient was able to be discharged. He reports that his chronic black tarry stools have persisted since then. He is only having one bowel movement per day. There is no abdominal pain. No vomiting. He gets episodic nausea, but this is also chronic for a long time. He presented again to the hospital yesterday, initially sent for hyperkalemia, but also found to have worsening anemia with hemoglobin down to 5.7. He has received 2 units RBC transfusion and hemoglobin came up nicely to 8.3 and is now 9.2 this afternoon. He has remained hemodynamically stable. He has no other symptoms due to concern for recurrent overt bleeding and subsequent drop in hemoglobin. We were consulted for evaluation. REVIEW OF SYSTEMS: Full review of systems including constitutional, head, eyes, ears, nose, throat, GI, , cardiovascular, respiratory, musculoskeletal, and neurologic systems are negative except as noted in the HPI. PAST MEDICAL HISTORY: Left knee surgery, abdominal aortic aneurysm surgery, back surgery, peritoneal dialysis catheter placement, pacemaker, end-stage renal disease on peritoneal dialysis, atrial fibrillation, cardiac pacemaker, diabetes type 2, hyperlipidemia, hypertension, and chronic anemia. FAMILY HISTORY: Noncontributory. SOCIAL HISTORY: No alcohol use. He does smoke. Former drug abuse, none currently. ALLERGIES: NO KNOWN DRUG ALLERGIES. OUTPATIENT MEDICATIONS: 1. Glipizide. 2. Simvastatin. 3. Renvela. 4. Protonix 40 mg daily. 5. Metoprolol. 6. Cinacalcet. 7. Calcitriol. 8. Aspirin 325 mg daily. 9. Allopurinol. INPATIENT MEDICATIONS: 1. Erythropoietin. 2. Protonix drip. PHYSICAL EXAMINATION: VITAL SIGNS: Temperature 98.1, pulse 92, blood pressure 155/67, and 100% oxygen saturation on room air. GENERAL: No acute distress. MENTAL: Alert and fully oriented. Pleasant, conversational. Can give a detailed coherent history. SKIN: No jaundice. No rashes were palpable. HEENT: Eyes, no scleral icterus. Extraocular movements intact. ENT, mucous membranes moist. No oral lesions. LYMPH: No submandibular or supraclavicular lymphadenopathy. THYROID: Nontender to palpation. HEART: Regular rate and rhythm. LUNGS: Clear to auscultation bilaterally. ABDOMEN: Bowel sounds present. Soft, nontender to deep palpation throughout. No masses or organomegaly appreciated. Peritoneal dialysis catheter in the lower abdomen. EXTREMITIES: No peripheral edema. VESSELS: Radial pulses 2+ bilaterally. NEURO: Cranial nerves 2 through 12 intact bilaterally. No focal deficits. LABORATORY STUDIES: Initial hemoglobin was 5.7, this is up to 9.2 after 2 units RBC transfusion. Baseline hemoglobin is 7.5 to 8, WBC is 9.1, MCV 92.5, platelets 261. Sodium 138, potassium 4.8, BUN 77, creatinine 13.86, lipase 150, total bilirubin 0.3, alkaline phosphatase 69, AST 11, ALT 8. FOBT negative. ASSESSMENT AND PLAN: 1. Possible melena, with chronically black stools. Note: The FOBT is negative, but with significant acute on chronic anemia, do need to be concerned for gastrointestinal hemorrhage. 2. Acute on chronic anemia. Anemia is likely primarily secondary to his renal disease, but do need to rule out gastrointestinal bleed. Note: The essentially negative EGD from a couple of weeks ago, but he did have APC treatment to a couple of small AVMs in the proximal duodenum. Possibly, he may have residual ulceration from the treatment site. I agree with the IV PPI. We will plan for diagnostic EGD tomorrow. Continue to trend H and H, and transfuse as needed. Thank you for the consultation. Please call anytime with questions or concerns. Job ID: [id number]
[2019-07-09] MEDS: Metoprolol Tartrate 50 MG TAB PO SCH (21:37)
[2019-07-09] MEDS: Simvastatin 40 MG TAB PO SCH (21:37)
[2019-07-09] MEDS: Pantoprazole 40 MG VIAL IVP SCH (21:38)
[2019-07-10 04:42] LABS: #Eosinphils 0.3 thou/uL (0.0-0.7); #Lymphocytes 0.9 thou/uL (1.20-3.40); #Monocytes 0.8 thou/uL (0.11-0.59); #Neutrophils 7.7 thou/uL (1.40-6.50); %Basophils 0.4 % (0.0-1.0); %Eosinophils 2.8 % (0.0-10.0); %Lymphocytes 9.4 % (21.0-51.0); %Monocytes 7.8 % (0.0-10.0); %Neutrophils 79.6 % (42.0-75.0); Hemoglobin 7.9 g/dL (14.0-18.0); Mean Corpuscular HGB CONC 35.8 g/dL (32.0-36.0); Mean Corpuscular Hemoglobin 32.8 pg (27.0-31.0); Mean Corpuscular Volume 91.6 fL (78.0-98.0); Mean Platelet Volume 6.5 fL (7.4-10.4); Platelet Count 274 thou/uL (130-400); RBC Distribution Width 16.2 % (11.5-14.5); Red Blood Cell (RBC) Count 2.41 mill/uL (4.70-6.10); White Blood Cell (WBC) Count 9.7 thou/uL (4.8-10.8)
[2019-07-10 05:02] LABS: Anion Gap 17 mmol/L (10-20); BUN (Urea Nitrogen) 69 mg/dL (8.4-25.7); Calc. Creatinine Clearance 8 mL/min (70-130); Calcium 7.8 mg/dL (7.8-10.44); Carbon Dioxide 19 mmol/L (23-31); Chloride 105 mmol/L (98-107); Estimated GFR-MDRD 5; Glucose 69 mg/dL (80-115); Potassium 4.6 mmol/L (3.5-5.1); Sodium 136 mmol/L (136-145)
[2019-07-10] MEDS: Sodium Chloride 0.9% 1,000 ML IV SCH (06:36)
[2019-07-10] MEDS: glipiZIDE 5 MG TAB PO SCH ×2 (07:54→17:28)
[2019-07-10] MEDS: Sevelamer Carbonate 800 MG TAB PO SCH ×3 (07:54→17:28)
[2019-07-10] MEDS ORDERED: Benzocaine 20% Spray 60 ML CAN ONE (09:33)
[2019-07-10] MEDS ORDERED: PROPOFOL 200 MG/20 ML VIAL ONE (09:33)
[2019-07-10] MEDS ORDERED: Ondansetron HCl/PF 4 MG/2 ML Vial IVP PRN (10:46)
[2019-07-10] MEDS ORDERED: Promethazine HCl 25 MG/ML VIAL IM PRN (10:46)
[2019-07-10] MEDS: Calcitriol 0.25 MCG CAP PO SCH (11:35)
[2019-07-10] MEDS: Pantoprazole 40 MG VIAL IVP SCH ×2 (11:35→21:16)
[2019-07-10] MEDS: Aspirin 325 mg Enteric Coated Tablet PO SCH (11:35)
[2019-07-10] MEDS: Metoprolol Tartrate 50 MG TAB PO SCH ×2 (11:36→21:16)
[2019-07-10] MEDS: Allopurinol 300 MG TAB PO SCH (11:36)
[2019-07-10] MEDS ORDERED: Activase 2 MG VIAL CATH SCH (12:30)
[2019-07-10] MEDS ORDERED: Sterile Water 10 ML VIAL IVP SCH (12:30)
--- NOTE | 2019-07-10 12:39 | OP ---
DATE OF PROCEDURE: 07/10/2019 DETENTION SERGEANT SURGEON: None. PROCEDURE: Esophagogastroduodenoscopy, diagnostic. INDICATION: 1. Melena. 2. Acute on chronic anemia. 3. Chronic kidney disease. 4. Recent EGD demonstrating a couple of duodenal AVMs, which were treated with APC. MEDICATIONS: See Anesthesia record. FINDINGS: After discussion of the risks, benefits, and alternatives of the procedure, informed consent was obtained and witnessed. Pre-endoscopic cardiopulmonary examination was satisfactory. Time-out was performed before sedation was achieved. Sedation was achieved with Anesthesia assistance in the endoscopy unit. A Pentax adult upper endoscope was placed into the oropharynx and passed through the cricopharyngeus under direct visualization. The esophageal mucosa appeared normal throughout with a normal-appearing Z-line. The endoscope was advanced into the stomach. Forward and retroflexed views of the entire gastric mucosa were obtained. The gastric mucosa appeared normal throughout. The endoscope was advanced through the pylorus and into the first and second portions of the duodenum. In the duodenal bulb, there are multiple tiny punctate arteriovenous malformations. None of these are actively bleeding or oozing. In the second portion of the duodenum, there are another couple of tiny punctate AVMs, which were nonbleeding. There was no evidence of any old blood or active bleeding. No erosions or ulcerations. The upper endoscope was completely withdrawn, and the patient allowed to recover. The patient tolerated the procedure well. There were no immediate postprocedure complications. IMPRESSION: 1. 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 2. Otherwise normal esophagogastroduodenoscopy. RECOMMENDATIONS: 1. Continue with daily PPI. 2. Advance diet. 3. Monitor H and H and iron studies on an outpatient basis. Continue with erythropoietin per Nephrology service. GI will sign off. Please call back anytime with questions or concerns. Job ID: [id number]
--- NOTE | 2019-07-10 17:14 | PRG ---
DATE OF SERVICE: 07/10/2019 SUBJECTIVE: Mr. Hodges is a 59-year-old black male, who was admitted for symptomatic anemia. There was a ? he may be passing tarry stools. He underwent an upper GI endoscopy with no active bleeding noted on the second endoscopy. Please note, he has received coagulation treatment for duodenal AV malformation, which was found on the recent EGD. No new complaints today. We did note that the PD catheter was not functioning well. For that reason, heparin has also been placed in the PD fluid solution. Furthermore, I decided to place Activase on the PD catheter in the hope that dialysis-nocturnal PD will work well tonight. We are keeping him for another day for that problem. No other complaints. No chest pain. No shortness of breath. OBJECTIVE: VITAL SIGNS: Blood pressure 120/61, heart rate 89, respiratory rate 18, temperature 98.3, pulse ox 99%. GENERAL: Noted to be awake, alert, comfortable, sitting, not in distress. SKIN: Adequate turgor. HEENT: Slightly pale conjunctivae. Anicteric sclerae. NECK: No neck mass. No carotid bruits. No JVD. CHEST: No deformities. LUNGS: Clear breath sounds. HEART: Normal sinus rhythm. No murmur. No gallops. No rubs. ABDOMEN: Globular, soft, nontender. No masses. EXTREMITIES: No edema. No deformities. MEDICATIONS: Of July 10, 2019, were reviewed. LABORATORY DATA: Of July 10, 2019: White count 9.7, hemoglobin 7.9. Sodium 136, potassium 4.6, chloride 105, carbon dioxide 19, BUN 69, creatinine 12.25, calcium 7.8. ASSESSMENT AND PLAN: 1. Symptomatic anemia, stable, p.r.n. blood transfusion, continuing weekly Epogen of 10,000 units subcu every week. 2. End-stage renal disease, stable. We will continue current CCPD regimen. Due to problems with drainage from the PD catheter, Activase was placed on the PD catheter. In addition, heparin was placed in the PD solution. 3. Please note, the patient is status post upper GI endoscopy with negative findings on the second endoscopy. 4. Recheck basic metabolics and CBC in a.m. Job ID: [id number]
[2019-07-10] MEDS: Cinacalcet HCl 30 MG TAB PO SCH (17:28)
[2019-07-10] MEDS: Simvastatin 40 MG TAB PO SCH (21:16)
[2019-07-11] MEDS: Sodium Chloride 0.9% 1,000 ML IV SCH (00:36)
[2019-07-11 04:23] LABS: #Basophils 0.1 thou/uL (0.0-0.2); #Eosinphils 0.4 thou/uL (0.0-0.7); #Lymphocytes 1.2 thou/uL (1.20-3.40); #Monocytes 0.7 thou/uL (0.11-0.59); #Neutrophils 6.5 thou/uL (1.40-6.50); %Basophils 0.7 % (0.0-1.0); %Eosinophils 4.6 % (0.0-10.0); %Lymphocytes 13.2 % (21.0-51.0); %Monocytes 7.9 % (0.0-10.0); %Neutrophils 73.7 % (42.0-75.0); Hemoglobin 8.2 g/dL (14.0-18.0); Mean Corpuscular HGB CONC 35.3 g/dL (32.0-36.0); Mean Corpuscular Hemoglobin 32.7 pg (27.0-31.0); Mean Corpuscular Volume 92.5 fL (78.0-98.0); Mean Platelet Volume 6.7 fL (7.4-10.4); Platelet Count 268 thou/uL (130-400); RBC Distribution Width 16.4 % (11.5-14.5); Red Blood Cell (RBC) Count 2.51 mill/uL (4.70-6.10); White Blood Cell (WBC) Count 8.9 thou/uL (4.8-10.8)
[2019-07-11 07:21] VITALS: BP 133/76; TEMP 98.4
[2019-07-11] MEDS: Sevelamer Carbonate 800 MG TAB PO SCH (08:05)
[2019-07-11] MEDS: glipiZIDE 5 MG TAB PO SCH (08:06)
[2019-07-11] MEDS: Calcitriol 0.25 MCG CAP PO SCH (08:06)
[2019-07-11] MEDS: Aspirin 325 mg Enteric Coated Tablet PO SCH (08:06)
[2019-07-11] MEDS: Allopurinol 300 MG TAB PO SCH (08:07)
[2019-07-11] MEDS: Metoprolol Tartrate 50 MG TAB PO SCH (08:07)
[2019-07-11] MEDS: Pantoprazole 40 MG VIAL IVP SCH (08:07)
--- NOTE | 2019-07-11 08:20 | PRG ---
DATE OF SERVICE: 07/11/2019 SUBJECTIVE: Mr. Hodges is a 59-year-old black male with ESRD and was admitted for symptomatic anemia. He has undergone upper GI endoscopy with no significant findings. During this hospitalization, there was a problem with his PD catheter. There was noted fibrin in the PD effluent and therefore for that reason, heparin was placed. This only slightly improved the drain flow of the peritoneal dialysis. Due to the improved PD drain flow, we decided to put Activase for several hours. We did observe the patient overnight with this peritoneal dialysis and the peritoneal dialysis went well. He was able to complete 5/5 exchanges. No new complaints today. No chest pain or shortness of breath. OBJECTIVE: VITAL SIGNS: Blood pressure is 133/76, heart rate 80, respiratory rate 16, temperature 98.4, pulse ox 98%. GENERAL: Awake, alert, comfortable, not in overt distress. SKIN: Adequate turgor. HEENT: He has pinkish conjunctivae. Anicteric sclerae. No neck mass. No carotid bruits. No JVD. CHEST: No deformities. LUNGS: Clear breath sounds. HEART: Normal sinus rhythm. No murmurs, gallops, or rubs. ABDOMEN: Globular, soft, nontender, no masses. EXTREMITIES: No edema, no deformities. Please note he has a PD catheter. MEDICATIONS: July 11, 2019, was reviewed. LABORATORY DATA: July 11, 2019, white count 8.9, hemoglobin 8.2. July 10, 2019, potassium 4.6, BUN 69, creatinine 12.25. ASSESSMENT AND PLAN: 1. End-stage renal disease, stable, tolerating current peritoneal dialysis. Peritoneal dialysis catheter drainage is much improved after application of Activase. We will continue current CCPD regimen. 2. Symptomatic anemia, stable hemoglobin[place] [address] units subcu q.week. We will try to maintain this at outpatient clinic. 3. Agree with current management. Okay for discharge any time. Job ID: [id number]
--- NOTE | 2019-07-12 03:05 | DIS ---
DATE OF ADMISSION: 07/08/2019 DATE OF DISCHARGE: 07/11/2019 DISCHARGE DIAGNOSES: 1. Acute blood loss anemia. 2. Small duodenal arteriovenous malformations. 3. End-stage renal disease on peritoneal dialysis. 4. Peritoneal dialysis catheter dysfunction. 5. Coronary artery disease. 6. Diabetes. 7. Hypertension. 8. Hyperlipidemia. 9. Tobacco abuse. 10. Gastrointestinal bleed. HISTORY OF PRESENT ILLNESS: This patient is a 59-year-old male, who presented to the emergency department with concern for elevated potassium, which was found on labs obtained by Dr. Gonzalez. The patient reported that he was having some black tarry stools and had a history of ulcer disease. He had labs obtained at that time, which only revealed a potassium of 5.0. However, his hemoglobin was at 5.7. Given his history, it was felt that the patient had likely acute blood loss anemia secondary to GI bleed. HOSPITAL COURSE: The patient was admitted to the hospital. He was started on IV PPI. He was given blood transfusion of 2 units and his hemoglobin subsequently increased to 8.3 and remained stable. He was seen in consultation by GI, who performed an EGD, which revealed some multiple tiny punctate nonbleeding AVMs in the proximal duodenum. It was recommended the patient stay on a PPI and advance his diet, which was done. He had no further symptoms and he had stable hemoglobin and stable vital signs. The patient did have consultation with Dr. Gonzalez and his peritoneal dialysis was continued. However, there was some difficulty with flow through the catheter. Initially had some heparinization and then subsequently use of Activase and the catheter flow improved significantly with that. The patient was felt to be stable for discharge. PHYSICAL EXAMINATION: VITAL SIGNS: On the day of discharge, temperature is 98.4, pulse 80, respirations 16, O2 saturation 98% on room air, and BP is 133/76. GENERAL: He is awake and alert. HEART: Regular with 2/6 murmur at the left lower sternal border. LUNGS: Clear. ABDOMEN: Soft, nontender, and nondistended. EXTREMITIES: With no edema. DISPOSITION: The patient is discharged to home. DISCHARGE MEDICATIONS: He is to continue his usual home medications, which will be: 1. Glucotrol 2.5 mg b.i.d. 2. Simvastatin 20 mg at bedtime. 3. Renvela 1600 mg t.i.d. with meals. 4. Protonix 40 mg daily. 5. Metoprolol 25 mg b.i.d. 6. Cinacalcet 90 mg p.o. daily. 7. Rocaltrol 1 mcg daily. 8. Aspirin 325 mg daily. 9. Allopurinol 150 mg p.o. daily. FOLLOWUP: The patient is to follow up with the [facility] primary care provider. He is to follow up with Dr. Gonzalez as per his usual followup. His activity is as tolerated. He will remain on a renal diet and he can return to the hospital at any time should he have the need to do so. Time spent in discharge activities was 35 min. Job ID: [id number] MTDD
== END 2019-07-11 10:10 | disposition home or self-care (01) | DRG 811 ==
LOC: ERS 18:48 → 2NO 21:13
PROVIDERS: ADMIT Internal Medicine; ATTEND Internal Medicine
PROC: 3E1M39Z Irrigation of Peritoneal Cavity using Dialysate, Percutaneous Approach (ICD-10-PCS; principal; 2019-07-08)
DX: D62 Acute posthemorrhagic anemia (principal); N18.6 End stage renal disease; I12.0 Hypertensive chronic kidney disease with stage 5 chronic kidney disease or end stage renal disease; T85.691A Other mechanical complication of intraperitoneal dialysis catheter, initial encounter; Y83.9 Surgical procedure, unspecified as the cause of abnormal reaction of the patient, or of later complication, without mention of misadventure at the time of the procedure; I25.10 Atherosclerotic heart disease of native coronary artery without angina pectoris; E78.5 Hyperlipidemia, unspecified; F17.210 Nicotine dependence, cigarettes, uncomplicated; I48.91 Unspecified atrial fibrillation; E11.22 Type 2 diabetes mellitus with diabetic chronic kidney disease; Z99.2 Dependence on renal dialysis; Z79.01 Long term (current) use of anticoagulants; K55.20 Angiodysplasia of colon without hemorrhage
CPT/HCPCS: 36415; 36416; 36430; 80048; 80053; 82274; 83690; 85025; 86850; 86900; 86901; 90945; 93005; 96365; C9113; G0257; J1644; J2704; J3490; P9016; Q5105

== ENCOUNTER 2019-08-31 20:38 | Inpatient (IN) | payer MEDICARE, OTHER ==
--- NOTE | 2019-08-31 21:17 | RAD ---
ONE VIEW CHEST: 08/31/19 HISTORY: Cough. COMPARISON: 06/27/19 FINDINGS: Stable right sided transvenous pacemaker. Normal cardiac silhouette. Pulmonary vessels and hilum are normal. Costophrenic angles are clear. No masses or consolidation. No pneumothorax or acute osseous a bnormalities. Mild elongation of the aorta is noted. IMPRESSION: No acute cardiopulmonary process. POS: PPP
[2019-08-31 21:24] LABS: #Eosinphils 0.3 thou/uL (0.0-0.7); #Lymphocytes 1.2 thou/uL (1.20-3.40); #Monocytes 0.8 thou/uL (0.11-0.59); #Neutrophils 7.5 thou/uL (1.40-6.50); %Basophils 0.4 % (0.0-1.0); %Eosinophils 3.3 % (0.0-10.0); %Lymphocytes 11.8 % (21.0-51.0); %Monocytes 8.1 % (0.0-10.0); %Neutrophils 76.4 % (42.0-75.0); Hemoglobin 11.3 g/dL (14.0-18.0); Mean Corpuscular HGB CONC 33.9 g/dL (32.0-36.0); Mean Corpuscular Volume 97.2 fL (78.0-98.0); Mean Platelet Volume 7.1 fL (7.4-10.4); Platelet Count 262 thou/uL (130-400); RBC Distribution Width 14.5 % (11.5-14.5); Red Blood Cell (RBC) Count 3.42 mill/uL (4.70-6.10); White Blood Cell (WBC) Count 9.9 thou/uL (4.8-10.8)
[2019-08-31 21:49] LABS: ALT (SGPT) 9 U/L (8-55); AST (SGOT) 13 U/L (5-34); Albumin 3.7 g/dL (3.4-4.8); Alkaline Phosphatase 71 U/L (40-110); Anion Gap 23 mmol/L (10-20); BUN (Urea Nitrogen) 60 mg/dL (8.4-25.7); Bilirubin, Total 0.3 mg/dL (0.2-1.2); CK (CPK) 175 U/L (30-200); Calc. Creatinine Clearance 0 mL/min (70-130); Calcium 9.2 mg/dL (7.8-10.44); Carbon Dioxide 17 mmol/L (23-31); Chloride 107 mmol/L (98-107); Estimated GFR-MDRD 6; Globulin 2.7 g/dL (2.4-3.5); Glucose 72 mg/dL (80-115); Lipase 118 U/L (8-78); Potassium 6.2 mmol/L (3.5-5.1); Protein, Total 6.4 g/dL (5.8-8.1); Sodium 141 mmol/L (136-145)
[2019-08-31] MEDS ORDERED: Dextrose 50% Abboject 50 ML SYRINGE ONE (22:29)
[2019-08-31] MEDS ORDERED: Insulin Regular 300 UNITS/3 ML VIAL ONE (22:29)
[2019-08-31] MEDS ORDERED: Sodium Bicarb 50 MEQ/50 ML VIAL ONE (22:29)
[2019-08-31] MEDS ORDERED: Calcium Chloride 1 GM/10 ML Abboject SYRINGE ONE (22:29)
--- NOTE | 2019-08-31 23:30 | PDOC.EVN ---
Event Note - Event Note Event Note: [id number]
--- NOTE | 2019-09-01 02:04 | HP ---
CHIEF COMPLAINT: Vomiting blood. HISTORY OF PRESENT ILLNESS: Mr. Hodges is a 59-year-old male with past medical history of end-stage renal disease, on peritoneal dialysis, atrial fibrillation, cardiac pacemaker, hyperlipidemia, hypertension, presented to [facility] Emergency Room with vomiting blood. Initially, the patient's chest x-ray showed suspicious for basilar atelectasis versus pneumonia. So, the patient was given IV antibiotics, CT of the abdomen was done, which did not mention any pneumonia. Workup in the emergency room also, the patient was found to be hyperkalemic with a potassium of 6.2. Medical management with calcium gluconate and potassium lowering medications was given in the ED. ED physician consulted with the patient's circular knitter helper to arrange for dialysis. EKG showed no acute changes. The patient denies shortness of breath, coughing, fever, or chills. The patient's hemoglobin is 11.3. The patient is being admitted to the hospital for further management. PAST MEDICAL HISTORY: 1. Atrial fibrillation. 2. Cardiac pacemaker. 3. Diabetes, type 2. 4. Hyperlipidemia. 5. Hypertension. 6. Gout. 7. End-stage renal disease, on peritoneal dialysis. 8. Aneurysm. PAST SURGICAL HISTORY: 1. Left knee surgery. 2. Cardiac pacemaker. 3. AAA correction. 4. Peritoneal dialysis catheter placement. 5. Cardiac pacemaker. SOCIAL HISTORY: He is a former drug user, abuses cocaine and marijuana. Currently, the patient smokes cigarettes, smokes half pack per day. FAMILY HISTORY: Reviewed and noncontributory. ALLERGIES: ALLERGIC TO LISINOPRIL. HOME MEDICATIONS: Please see home medication reconciliation form for updated medications. REVIEW OF SYSTEMS: Review of 14 systems negative except what is mentioned in the history of present illness. PHYSICAL EXAMINATION: GENERAL: The patient is awake, alert, does not appear to be in acute distress. VITAL SIGNS: Blood pressure 122/99, pulse is 79, temperature 98.7, respiratory rate is 19, pulse oximetry is 100% on room air. HEAD: Normocephalic, atraumatic. NECK: Supple. No JVD. CHEST: Fair bilateral air entry. HEART: S1, S2, regular. ABDOMEN: Soft, nontender. Bowel sounds present. Peritoneal catheter, covered with dressing. NEUROLOGIC: Awake, alert, oriented x3. PSYCHIATRIC: Normal mood. EXTREMITIES: No clubbing or cyanosis. GENITOURINARY: No flank tenderness. No suprapubic tenderness. LABORATORY DATA: Chest x-ray, no acute finding. Labs as mentioned above in history of present illness. ASSESSMENT: 1. Acute hyperkalemia. 2. End-stage renal disease, on peritoneal dialysis. 3. Vomiting blood, stool for occult blood negative? 4. Hypertension. PLAN: 1. Admit. 2. Tele monitoring. 3. Warehouse Representative consulted to arrange for dialysis. 4. Monitor hemoglobin and hematocrit. 5. IV proton pump inhibitor. 6. The patient was given antibiotics tonight, repeat chest x-ray does not show pneumonia, possible atelectasis, reassess in a.m. for the continuous need of antibiotics?? 7. Consider GI evaluation and consultation in a.m. Initial patient presentation was vomiting blood, but his stool guaiac is negative. Continue to monitor hemoglobin and hematocrit. 8. Reconcile home medications. 9. DVT prophylaxis as appropriate. 10. Expected length of stay 2 midnights or more. Job ID: [id number]
[2019-09-01 04:29] LABS: #Eosinphils 0.3 thou/uL (0.0-0.7); #Monocytes 0.6 thou/uL (0.11-0.59); #Neutrophils 5.7 thou/uL (1.40-6.50); %Basophils 0.1 % (0.0-1.0); %Eosinophils 3.8 % (0.0-10.0); %Lymphocytes 13.4 % (21.0-51.0); %Monocytes 7.4 % (0.0-10.0); %Neutrophils 75.4 % (42.0-75.0); Mean Corpuscular HGB CONC 32.2 g/dL (32.0-36.0); Mean Corpuscular Hemoglobin 30.3 pg (27.0-31.0); Mean Corpuscular Volume 94.3 fL (78.0-98.0); Mean Platelet Volume 7.1 fL (7.4-10.4); Platelet Count 243 thou/uL (130-400); RBC Distribution Width 14.5 % (11.5-14.5); Red Blood Cell (RBC) Count 3.62 mill/uL (4.70-6.10); White Blood Cell (WBC) Count 7.6 thou/uL (4.8-10.8)
[2019-09-01 04:48] LABS: ALT (SGPT) 9 U/L (8-55); AST (SGOT) 13 U/L (5-34); Albumin 3.5 g/dL (3.4-4.8); Alkaline Phosphatase 67 U/L (40-110); Anion Gap 18 mmol/L (10-20); BUN (Urea Nitrogen) 56 mg/dL (8.4-25.7); Bilirubin, Total 0.4 mg/dL (0.2-1.2); Calc. Creatinine Clearance 10 mL/min (70-130); Calcium 9.3 mg/dL (7.8-10.44); Carbon Dioxide 20 mmol/L (23-31); Chloride 108 mmol/L (98-107); Estimated GFR-MDRD 7; Globulin 2.9 g/dL (2.4-3.5); Glucose 110 mg/dL (80-115); Potassium 4.3 mmol/L (3.5-5.1); Protein, Total 6.4 g/dL (5.8-8.1); Sodium 142 mmol/L (136-145)
[2019-09-01 06:03] LABS: Hemoglobin 11.5 g/dL (14.0-18.0)
[2019-09-01] MEDS: Pantoprazole 40 MG VIAL IVP SCH ×2 (08:46→21:13)
[2019-09-01] MEDS ORDERED: FLU VACC QS2019-20(6MOS UP)/PF 60 MCG/0.5 ML SYRINGE IM ONE (09:00)
--- NOTE | 2019-09-01 09:30 | CON ---
DATE OF CONSULTATION: SERVICE: Renal Medicine. HISTORY OF PRESENT ILLNESS: Mr. Hodges is a 59-year-old black male with ESRD, currently on peritoneal dialysis, was admitted for hematemesis. According to the patient, he was vomiting bright red blood a few hours prior to admission. He went to the ER and he was further admitted at [facility] for further management. We are being consulted for management of his ESRD. I restarted back his peritoneal dialysis last night - CCPD of 9 hours with 2 L fill volume. This morning, he is feeling a little better. REVIEW OF SYSTEMS: Positive for hematemesis. No gross hematuria. No hematochezia. No melena. Mild abdominal pain. No headache. No diplopia. No syncopal episode. No productive cough. No fever or chills. No syncopal episode. Appetite and energy level are decreased. No dysuria. No urinary frequency. No leg edema. PAST MEDICAL HISTORY: 1. Chronic atrial fibrillation. 2. Type 2 diabetes mellitus. 3. ESRD from diabetic nephropathy. 4. Hypertension. 5. Gout. 6. Aneurysm. 7. Longstanding hypertension. 8. History of coronary artery disease. PAST SURGICAL HISTORY: Status post ACL repair, left; status post aneurysmal repair at [place] [facility] [place]; status post pacemaker placement; status post cardiac cath with coronary artery stent placement; and status post PD catheter placement. MEDICATIONS: Home medications actually includes; 1. Calcitriol 1 mcg tablet daily. 2. Aspirin 81 mg tablet once a day. 3. Allopurinol 150 mg daily. 4. Sensipar 90 mg daily. 5. Protonix 40 mg tablet once a day. 6. Metoprolol tartrate 25 mg p.o. b.i.d. 7. Renvela 800 mg 2 tablets t.i.d. with meals. 8. Glipizide 2.5 mg p.o. b.i.d. 9. Simvastatin 20 mg tablet at bedtime. Current medication in the hospital, Protonix 40 mg IV b.i.d. ALLERGIES: NONE. TRAUMA: None. IMMUNIZATIONS: Up-to-date. HOSPITALIZATIONS: Please see past medical history. SOCIAL HISTORY: The patient is . He is a . Currently, lives in [place]. Currently, no smoking or alcohol use. Status post blood transfusion. He used to use marijuana. FAMILY HISTORY: No family history of ESRD. PHYSICAL EXAMINATION: VITAL SIGNS: Blood pressure is 122/61, heart rate 78, respiratory rate 18, temperature 97.8, and pulse ox 100%. GENERAL: The patient is awake, alert, comfortable, not in distress. SKIN: Adequate turgor. HEENT: Pinkish conjunctivae. Anicteric sclerae. NECK: No neck mass. No carotid bruits. No JVD. CHEST: No deformities. LUNGS: Clear breath sounds. HEART: Normal sinus rhythm. No murmurs. No gallops. No rubs. ABDOMEN: Globular, soft, and nontender. No masses. Positive for PD catheter. EXTREMITIES: No edema. No deformities. NEUROLOGICAL: Moving all extremities. No tremors. No asterixis. No ataxia. Laboratory. ASSESSMENT AND PLAN: 1. Upper gastrointestinal bleed - supportive care, p.r.n. blood transfusion. Continue IV Protonix. Consider reconsult GI. 2. End-stage renal disease, stable. We will continue with the current peritoneal dialysis regimen. Fluid removal only as tolerated. He is currently undergoing a 2 L fill volume with 2.5 L percent solution. We are doing for total of 9 hours. Review of his last Kt/V suggests he is adequately dialyzed with the current dialysis regimen. 3. Hyperphosphatemia. I would suggest we continue his phosphate binders. Thank you for the consult. We will continue to follow. Job ID: [id number]
--- NOTE | 2019-09-01 12:36 | PDOC.HOSPP ---
- Subjective Encounter Date: 09/01/19 Encounter Time: 09:15 Subjective: no hematemesis or bleeding per rectum no abd pain or nausea, is tolerating oral solid diet - Objective Vital Signs & Weight: Vital Signs (12 hours) Temp Pulse Resp BP Pulse Ox 09/01/19 11:43 97.9 F 95 18 109/65 99 09/01/19 08:00 97.1 F L 79 18 126/63 98 09/01/19 03:44 97.8 F 78 18 122/61 100 Weight Weight 191 lb 6.4 oz I&O: 08/31/19 09/01/19 09/02/19 06:59 06:59 06:59 Output Total 1080 Balance -1080 Result Diagrams: 09/01/19 05:52 09/01/19 04:18 Additional Labs: Accuchecks 08/31/19 23:57 POC Glucose 103 Hospitalist ROS - Medication Medications: Active Medications Generic Name Dose Route Start Last Admin Trade Name Freq PRN Reason Stop Dose Admin Pantoprazole Sodium 40 mg 09/01/19 09:00 09/01/19 08:46 Protonix IVP 40 mg BID SUZETTE Administration - Exam General Appearance: awake alert Eye: PERRL, anicteric sclera ENT: no oropharyngeal lesions, moist mucosa Neck: supple, no JVD Heart: RRR, no murmur Respiratory: no wheezes, no rales Gastrointestinal: soft, non-tender, non-distended, normal bowel sounds Extremities: no cyanosis, no edema Neurological: cranial nerve grossly intact, no focal deficits Psychiatric: normal affect, A&O x 3 Hosp A/P (1) GI (gastrointestinal bleed) Code(s): K92.2 - GASTROINTESTINAL HEMORRHAGE, UNSPECIFIED Status: Suspected (2) ESRD (end stage renal disease) on dialysis Code(s): N18.6 - END STAGE RENAL DISEASE; Z99.2 - DEPENDENCE ON RENAL DIALYSIS Status: Chronic (3) CAD (coronary artery disease) Code(s): I25.10 - ATHSCL HEART DISEASE OF [place] CORONARY ARTERY W/O ANG PCTRS Status: Chronic Qualifiers: Coronary Disease-Associated Artery/Lesion type: [place] artery [place] vs. transplanted heart: [place] heart Associated angina: without angina Qualified Code(s): I25.10 - Atherosclerotic heart disease of [place] coronary artery without angina pectoris (4) DM type 2 (diabetes mellitus, type 2) Status: Chronic Qualifiers: Diabetes mellitus medical terminologist insulin use: without medical terminologist use Diabetes mellitus complication status: with kidney complications Diabetes mellitus complication detail: with chronic kidney disease Chronic kidney disease stage : on chronic dialysis Qualified Code(s): E11.22 - Type 2 diabetes mellitus with diabetic chronic kidney disease; N18.6 - End stage renal disease; Z99.2 - Dependence on renal dialysis (5) Dyslipidemia Code(s): E78.5 - HYPERLIPIDEMIA, UNSPECIFIED Status: Chronic (6) HTN (hypertension) Code(s): I10 - ESSENTIAL (PRIMARY) HYPERTENSION Status: Chronic Qualifiers: (7) Tobacco abuse Code(s): Z72.0 - TOBACCO USE Status: Chronic - Plan serial H/H has been stable, no clinical evidence for bleed now had prior h/o gastric/duodenal AVM with bleeding continue oral diet, protonix, allopurinol, liptior, glipizide, lopressor, sevelamer, sensipar hemostable dc plan in am if stable is getting PD
[2019-09-01] MEDS: Sevelamer Carbonate 800 MG TAB PO SCH ×2 (13:35→17:19)
[2019-09-01] MEDS ORDERED: CINACALCET HCL 90 MG PO SCH (17:00)
[2019-09-01] MEDS: Cinacalcet HCl 30 MG TAB PO SCH (17:19)
[2019-09-01] MEDS: glipiZIDE 5 MG TAB PO SCH (17:19)
[2019-09-01] MEDS: Metoprolol Tartrate 50 MG TAB PO SCH (21:12)
[2019-09-01] MEDS: Atorvastatin Calcium 20 MG TAB PO SCH (21:13)
[2019-09-01 22:09] LABS: Hemoglobin 10.8 g/dL (14.0-18.0)
--- NOTE | 2019-09-02 02:27 | CON ---
DATE OF CONSULTATION: 09/01/2019 REASON FOR CONSULTATION: Hematemesis. CONSULTING PROVIDER: Austin Sanchez MD HISTORY OF PRESENT ILLNESS: The patient is a 59-year-old male with past medical history of atrial fibrillation with pacemaker placement, diabetes, hyperlipidemia, hypertension, gout, end-stage renal disease on peritoneal dialysis, aneurysm, and duodenal ulceration in 2018, presenting with complaints of hematemesis. The patient states that for over the last 3 to 4 months, he has been having intermittent episodes of hematemesis characterized as vomiting bright red blood with small to moderate volumes and would occur approximately 1 to 2 times per month. During his prior hospitalizations, he did undergo upper endoscopy, which showed the presence of small nonbleeding arteriovenous malformations with no intervention taken at that time. The patient was ultimately discharged to home and had been in his usual state of health with dose reduction in his aspirin until yesterday when the patient again had increased nausea and vomiting after dinner. With the initial vomiting episode, he did not exhibit any hematemesis at that time but after repeated episodes of retching/vomiting, he did have the appearance of blood-tinged blood colored emesis, prompting him to come to the ER for further evaluation. Upon further characterization of the blood that he vomited yesterday, he states that it was bright red and filled the toilet bowl, which had not done so in the past. On evaluation in the ER, he did not have any further episodes of nausea or hematemesis and currently has been doing well with response to conservative management. In addition to the above hematemesis, the patient describes subjective chills and he does have complaints of substernal pyrosis, but is not currently on any medications for acid reflux. He currently denies any fevers, melena, hematochezia, dysphagia, odynophagia, or weight loss. REVIEW OF SYSTEMS: A 10-category review of systems was obtained with all responses negative except for the pertinent positives as listed in the HPI. PAST MEDICAL HISTORY: As per HPI. PAST SURGICAL HISTORY: Pacemaker placement, AAA correction, peritoneal dialysis catheter placement, and left knee surgery. FAMILY HISTORY: Denies any GI malignancies. SOCIAL HISTORY: Denies any alcohol or illicit drug use. Currently smokes 1/2 pack per day. OUTPATIENT MEDICATIONS: Reviewed. ALLERGIES: LISINOPRIL. PHYSICAL EXAMINATION: VITAL SIGNS: Temperature 99.4, pulse 111, blood pressure 129/80, respiratory rate 16, saturating 97% on room air. GENERAL: The patient was lying in bed, in no acute distress. Alert and oriented x4. HEENT: Normocephalic, atraumatic. NECK: Supple. No JVD or scleral icterus noted. CARDIOVASCULAR: Regular rate and rhythm with no discernible murmurs, gallops, or rubs. RESPIRATORY: Clear to auscultation bilaterally with no discernible wheezes or rales. ABDOMEN: Normoactive bowel sounds. Soft, nontender, and nondistended. EXTREMITIES: No cyanosis, clubbing, or edema. LABORATORY DATA: CBC with a white blood cell count of 7.6, hemoglobin 11, hematocrit 34.1, platelets 243. Chemistry with a sodium of 142, potassium 4.3, chloride 108, CO2 of 20, BUN 56, creatinine 9.81, glucose 110, AST 13, ALT 9, alkaline phosphatase 67, total bilirubin 0.4, albumin 3.5, and lipase 118. IMAGING DATA: No current GI imaging is available for review. However, the patient underwent upper endoscopy on July 10, 2019, which showed multiple punctate nonbleeding arteriovenous malformations within the proximal duodenum, but otherwise had a normal upper endoscopy. A prior upper endoscopy was performed on June 29, 2019, which showed arteriovenous malformations within the first and second portions of the duodenum, but again not exhibiting any active or recent bleeding. Argon plasma coagulation was performed on the arteriovenous malformations given the recent history of hematemesis and decreased H and H. ASSESSMENT AND PLAN: The patient is a 59-year-old male with past medical history of atrial fibrillation with pacemaker placement, diabetes, hyperlipidemia, hypertension, gout, end-stage renal disease on peritoneal dialysis, aortic aneurysm status post repair, duodenal ulceration in 2019, and arteriovenous malformations of the duodenum, now presenting with a repeat episode of hematemesis. Hematemesis. The patient is presenting with repeated episodes of hematemesis that have been presenting approximately 1 to 2 times per month over the last 3 to 4 months. During the last upper endoscopy, he was noted to have multiple arteriovenous malformations within the duodenal bulb, but none were bleeding and intervention was not performed at that time. At this time, the patient exhibited more nausea and vomiting with repeated episodes of retching prior to the onset of actual hematemesis, raising concern for possible Dayanara-Berg tear as opposed to arteriovenous malformation bleeding or other causative mechanism within the upper GI tract. His current H and H are relatively stable and actually uptrending from his prior admission in June of 2019. However, given the clinical history of blood filling the toilet bowl with repeated episodes of hematemesis, I would like to rule out any other abnormalities at this time. RECOMMENDATIONS: 1. Would proceed with making the patient n.p.o. at midnight in anticipation for upper endoscopy tomorrow. 2. Would plan for EGD for intraluminal evaluation and possible source of bleeding. 3. Would continue patient on PPI 40 mg b.i.d. 4. We would avoid any anticoagulation. 5. We would continue to trend his H and H and transfuse as necessary to maintain an H and H of 7/. 6. Continue to monitor clinically for signs of GI bleeding. 7. Further recommendations to follow upper endoscopy tomorrow. Job ID: [id number]
[2019-09-02 07:01] LABS: #Eosinphils 0.3 thou/uL (0.0-0.7); #Lymphocytes 0.8 thou/uL (1.20-3.40); #Monocytes 0.6 thou/uL (0.11-0.59); #Neutrophils 5.8 thou/uL (1.40-6.50); %Basophils 0.6 % (0.0-1.0); %Lymphocytes 10.5 % (21.0-51.0); %Monocytes 7.5 % (0.0-10.0); %Neutrophils 77.6 % (42.0-75.0); Hemoglobin 11.3 g/dL (14.0-18.0); Mean Corpuscular HGB CONC 34.4 g/dL (32.0-36.0); Mean Corpuscular Volume 95.7 fL (78.0-98.0); Platelet Count 249 thou/uL (130-400); RBC Distribution Width 14.5 % (11.5-14.5); Red Blood Cell (RBC) Count 3.42 mill/uL (4.70-6.10); White Blood Cell (WBC) Count 7.4 thou/uL (4.8-10.8)
[2019-09-02 07:22] LABS: Iron 49 ug/dL (65-175); Iron Binding Capacity, Total 196 mcg/dL (261-462)
[2019-09-02 07:30] LABS: Anion Gap 16 mmol/L (10-20); BUN (Urea Nitrogen) 49 mg/dL (8.4-25.7); Calc. Creatinine Clearance 10 mL/min (70-130); Calcium 8.3 mg/dL (7.8-10.44); Carbon Dioxide 22 mmol/L (23-31); Chloride 106 mmol/L (98-107); Estimated GFR-MDRD 7; Glucose 64 mg/dL (80-115); Iron 49 ug/dL (65-175); Iron Binding Capacity, Total 198 mcg/dL (261-462); Potassium 4.1 mmol/L (3.5-5.1); Sodium 140 mmol/L (136-145)
[2019-09-02] MEDS: Sevelamer Carbonate 800 MG TAB PO SCH ×3 (07:43→17:29)
[2019-09-02] MEDS ORDERED: Ketamine 50 MG/ML (10ML VIAL) ONE (07:43)
[2019-09-02] MEDS: glipiZIDE 5 MG TAB PO SCH ×2 (07:43→17:23)
[2019-09-02] MEDS: Metoprolol Tartrate 50 MG TAB PO SCH (07:44)
[2019-09-02] MEDS ORDERED: Ondansetron HCl/PF 4 MG/2 ML Vial IVP PRN (09:19)
[2019-09-02] MEDS ORDERED: Promethazine HCl 25 MG/ML VIAL SLOW IVP PRN (09:19)
[2019-09-02] MEDS ORDERED: Promethazine HCl 25 MG/ML VIAL IM PRN (09:19)
--- NOTE | 2019-09-02 10:03 | PDOC.HOSPP ---
- Subjective Encounter Date: 09/02/19 Encounter Time: 08:00 Subjective: no hematemesis, abd pain or sob and son at bedside is npo for egd today - Objective Vital Signs & Weight: Vital Signs (12 hours) Temp Pulse Resp BP Pulse Ox 09/02/19 07:38 98.3 F 101 H 18 128/78 99 09/02/19 04:00 98.4 F 74 16 116/56 L 97 09/02/19 00:00 98.2 F 91 16 106/67 95 Weight Weight 191 lb 6.4 oz I&O: 09/01/19 09/02/19 09/03/19 06:59 06:59 06:59 Intake Total 300 Output Total 1080 Balance -780 Result Diagrams: 09/02/19 06:53 09/02/19 06:53 Additional Labs: Accuchecks 09/02/19 09/01/19 09/01/19 05:19 20:42 17:02 POC Glucose 80 134 H 159 H Hospitalist ROS - Medication Medications: Active Medications Generic Name Dose Route Start Last Admin Trade Name Raj PRN Reason Stop Dose Admin Atorvastatin Calcium 20 mg 09/01/19 21:00 09/01/19 21:13 Lipitor PO 20 mg HS SUZETTE Administration Cinacalcet 90 mg 09/01/19 17:00 09/01/19 17:19 Sensipar PO 90 mg 1700 SUZETTE Administration Glipizide 2.5 mg 09/01/19 16:30 09/02/19 07:43 Glucotrol PO Not Given BID-AC SUZETTE Metoprolol Tartrate 25 mg 09/01/19 21:00 09/02/19 07:44 Lopressor PO 25 mg BID SUZETTE Administration Pantoprazole Sodium 40 mg 09/01/19 09:00 09/01/19 21:13 Protonix IVP 40 mg BID SUZETTE Administration Sevelamer Carbonate 1,600 mg 09/01/19 12:00 09/02/19 07:43 Renvela PO Not Given TID-WM SUZETTE - Exam General Appearance: NAD, awake alert Eye: PERRL, anicteric sclera ENT: no oropharyngeal lesions, moist mucosa Neck: supple, no JVD Heart: RRR, no murmur Respiratory: no wheezes, no rales Gastrointestinal: soft, non-tender, non-distended, normal bowel sounds Extremities: no cyanosis, no edema Neurological: cranial nerve grossly intact, no focal deficits Psychiatric: normal affect, A&O x 3 Hosp A/P (1) GI (gastrointestinal bleed) Code(s): K92.2 - GASTROINTESTINAL HEMORRHAGE, UNSPECIFIED Status: Suspected (2) ESRD (end stage renal disease) on dialysis Code(s): N18.6 - END STAGE RENAL DISEASE; Z99.2 - DEPENDENCE ON RENAL DIALYSIS Status: Chronic (3) CAD (coronary artery disease) Code(s): I25.10 - ATHSCL HEART DISEASE OF [place] CORONARY ARTERY W/O ANG PCTRS Status: Chronic Qualifiers: Coronary Disease-Associated Artery/Lesion type: [place] artery [place] vs. transplanted heart: [place] heart Associated angina: without angina Qualified Code(s): I25.10 - Atherosclerotic heart disease of [place] coronary artery without angina pectoris (4) DM type 2 (diabetes mellitus, type 2) Status: Chronic Qualifiers: Diabetes mellitus snf insulin use: without snf use Diabetes mellitus complication status: with kidney complications Diabetes mellitus complication detail: with chronic kidney disease Chronic kidney disease stage : on chronic dialysis Qualified Code(s): E11.22 - Type 2 diabetes mellitus with diabetic chronic kidney disease; N18.6 - End stage renal disease; Z99.2 - Dependence on renal dialysis (5) Dyslipidemia Code(s): E78.5 - HYPERLIPIDEMIA, UNSPECIFIED Status: Chronic (6) HTN (hypertension) Code(s): I10 - ESSENTIAL (PRIMARY) HYPERTENSION Status: Chronic Qualifiers: (7) Tobacco abuse Code(s): Z72.0 - TOBACCO USE Status: Chronic - Plan serial H/H has been stable, no clinical evidence for active bleeding for egd today had prior h/o duodenal AVM with bleeding continue protonix, allopurinol, liptior, glipizide, lopressor, sevelamer, sensipar hemostable dc plan in am if stable on PD
--- NOTE | 2019-09-02 10:21 | OP ---
DATE OF PROCEDURE: 09/02/2019 PROCEDURE PERFORMED: Esophagogastroduodenoscopy with control of hemorrhage. INDICATION FOR PROCEDURE: Hematemesis, history of duodenal arteriovenous malformations. DESCRIPTION OF PROCEDURE: After the risks and benefits of the procedure were explained to the patient including risks of bleeding, infection, perforation, reactions to anesthesia, aspiration, and/or pain, informed consent was obtained. The patient was then taken to the endoscopy suite, where he was placed in the left lateral decubitus position followed by administration of propofol via anesthesia support. Once adequate sedation was achieved, a standard gastroscope was introduced into the mouth with intubation of the esophagus, stomach, and the proximal small intestines with the findings listed below. The patient tolerated the procedure well with no immediate perioperative complications. Upon conclusion of the procedure, all equipment was removed from the patient and he was transferred to PACU in satisfactory condition. FINDINGS: Esophagus: Normal-appearing mucosa was seen in the proximal and mid esophagus; however, at approximately 38 cm past the incisors (gastroesophageal junction), a 3-mm slightly cratered ulceration was seen with adherent clot overlying it, indicative of recent bleeding, consistent with a Dayanara-Berg tear. Given his repeated history of hematemesis, this was ultimately intervened upon with a 7-Kh[place] bipolar cautery probe with good hemostasis achieved. Otherwise, there was no other abnormality seen in the distal esophagus with no evidence of mass lesions or active bleeding. Stomach: Slightly increased mucosal erythema was seen in the gastric cardia immediately surrounding the gastroesophageal junction, consistent with the patient's recent episode of vomiting and extension of the stomach into the diaphragmatic pinch. There were no erosions or ulcerations associated with this particular finding, but it was seen actively rolling into the diaphragmatic pinch during the course of this procedure. Otherwise, normal-appearing mucosa was seen in the gastric cardia, fundus, body, and greater curvature. A moderate amount of retained solid food was seen in the gastric antrum and along the incisura, but was easily removed with irrigation and suction. No other underlying abnormalities were seen. No evidence of erosions, ulcerations, mass lesions, or active/recent bleeding was seen during this portion. Duodenum: Normal-appearing mucosa was seen in both the duodenal bulb and second portion of the duodenum. There was no evidence of erosions, ulcerations, mass lesions, arteriovenous malformations, or active/recent bleeding. IMPRESSION: 1. A 3-mm ulceration with adherent clot at the gastroesophageal junction, consistent with a Dayanara-Berg tear, status post bipolar cauterization with good hemostasis achieved. 2. A 3-cm hiatal hernia. 3. Slightly increased mucosal erythema in the gastric cardia, consistent with a sliding hiatal hernia and recent episode of vomiting/retching. 4. No evidence of arteriovenous malformations was seen during this examination. 5. Moderate amount of retained solid food in the distal stomach, but was amenable to irrigation and suctioning to achieve adequate visualization of the underlying mucosa. RECOMMENDATIONS: 1. While the patient remains inpatient, we would continue to trend his hemoglobin and hematocrit and transfuse as necessary to maintain the hemoglobin and hematocrit of 7/21. 2. Continue to monitor clinically for signs of active GI bleeding. 3. Would continue the patient on PPI 40 mg daily in light of recent Dayanara-Berg tear, nausea, and vomiting. 4. Continue with aggressive antiemetic support. 5. Can advance the patient's diet to solid diet. Given the low likelihood of rebleeding from Dayanara-Berg tears, the patient could be potentially discharged today with followup in the GI Clinic as an outpatient. We will sign off at this time. Please call with any questions. Job ID: [id number]
[2019-09-02] MEDS: Calcitriol 0.25 MCG CAP PO SCH (10:32)
[2019-09-02] MEDS: Allopurinol 300 MG TAB PO SCH (10:32)
[2019-09-02] MEDS: Pantoprazole 40 MG VIAL IVP SCH ×2 (10:33→21:44)
[2019-09-02] MEDS ORDERED: PROPOFOL 200 MG/20 ML VIAL ONE (11:50)
[2019-09-02] MEDS: Cinacalcet HCl 30 MG TAB PO SCH (17:29)
--- NOTE | 2019-09-02 20:21 | PRG ---
DATE OF SERVICE: 09/02/2019 SERVICE: Nephrology. SUBJECTIVE: A 59-year-old male patient with known history of end-stage renal disease on peritoneal dialysis, admitted due to hematemesis. Nephrology is following for end-stage renal disease management. The patient had EGD earlier today. Feels comfortable and denied chest pain, shortness of breath, or abdominal pain. No further hematemesis. OBJECTIVE: VITAL SIGNS: Temperature 97.8, pulse 90, respiratory rate 20, SpO2 of 98% on room air, and blood pressure is 139/94. GENERAL: Comfortable male, in no distress. Afebrile. Anicteric. Acyanotic. HEENT: Normocephalic and atraumatic. Oral mucosa is moist. CARDIOVASCULAR: Regular rhythm and rate, but tachycardic. Systolic murmur noted. RESPIRATORY: Good air entry bilaterally with no obvious crackle or rhonchi or use of accessory muscles. GI: Full, soft, nontender, and nondistended with normal bowel sounds. Peritoneal dialysis catheter noted. EXTREMITIES: Grossly normal looking atraumatic with no edema or erythema. CORD SPLICER: Conscious, alert, and oriented x3 with appropriate mental status. Cranial nerves 2 through 12 are grossly intact. DIAGNOSTIC DATA: CBC showed WBC count of 7.4, hemoglobin of 11.3, platelet of 249. BMP showed sodium 140, potassium 4.1, chloride 106, CO2 of 22, BUN 49, creatinine 9.22, glucose 64, calcium 8.3. Iron chemistry showed serum iron of 49, TIBC of 196 with 25% saturation and ferritin of 590. ASSESSMENT: 1. End-stage renal disease, on peritoneal dialysis: Stable. The patient is tolerating treatment well. 2. Hypertension: Control is acceptable. 3. Tachyarrhythmia. 4. Acute blood loss anemia. 5. Anemia in chronic kidney disease. PLAN: 1. We will continue peritoneal dialysis using same treatment. 2. We will increase metoprolol to 37.5, given tachyarrhythmia. 3. We will monitor blood pressure closely. 4. The patient can be discharged from Nephrology point of view once cleared by other specialties. He, however, needs to continue outpatient peritoneal dialysis as before. Job ID: [id number]
[2019-09-02] MEDS: Atorvastatin Calcium 20 MG TAB PO SCH (21:44)
[2019-09-02] MEDS: Metoprolol Tartrate 25 MG TAB PO SCH (21:45)
[2019-09-03] MEDS: Sevelamer Carbonate 800 MG TAB PO SCH (08:39)
[2019-09-03] MEDS: glipiZIDE 5 MG TAB PO SCH ×2 (08:40→08:49)
[2019-09-03] MEDS: Metoprolol Tartrate 25 MG TAB PO SCH (08:40)
[2019-09-03] MEDS: Calcitriol 0.25 MCG CAP PO SCH (08:40)
[2019-09-03] MEDS: Allopurinol 300 MG TAB PO SCH (08:41)
[2019-09-03 11:10] VITALS: BP 112/72; TEMP 98
--- NOTE | 2019-09-04 14:48 | DIS ---
DATE OF ADMISSION: 09/01/2019 DATE OF DISCHARGE: 09/03/2019 DISCHARGE DISPOSITION: To home. PRIMARY DISCHARGE DIAGNOSIS: Hematemesis secondary to Dayanara-Berg tear with gastrointestinal bleed. SECONDARY DISCHARGE DIAGNOSES: End-stage renal disease, on dialysis; coronary artery disease; diabetes mellitus type 2; dyslipidemia; hypertension; tobacco abuse. PROCEDURES DONE DURING HOSPITALIZATION: Chest x-ray done on the day of admission showed no acute cardiopulmonary process. Upper endoscopy done showed 3 cm ulceration with adherent clot at the gastroesophageal junction consistent with a Dayanara-Berg tear, status post bipolar cauterization and good hemostasis achieved. There is a 3 cm hiatal hernia. No AV malformations were seen. H and H 11 and 32, platelet count 249, MCV is 95. Discharge BUN and creatinine are 49 and 9.2, serum bicarb 22. Serum iron 49, ferritin is 590, TIBC 198, percent saturation 25. INPATIENT CONSULT: 1. Dr. Yobany Mcmillan for Gastroenterology. 2. Dr. Gonzalez for Nephrology. DISCHARGE PLAN: The patient to follow up with his primary care physician at the [facility] in 1 week. BRIEF COURSE DURING HOSPITALIZATION: The patient initially came to ER with complaints of vomiting blood. He has had prior history of AV malformation in the duodenal area. In view of this, the patient was admitted to telemetry initially. He has had consultation with Dr. Yobany Mcmillan. He has had upper endoscopy done, which showed Dayanara-Berg tear, which was cauterized. His H and H remained stable during his stay on serial exams. The patient continued on peritoneal dialysis under Dr. Gonzalez's direction. Prior to discharge, he is tolerating solid food and is ambulating well. He is hemodynamically stable and will be shortly discharged home. Please note, I have seen and examined the patient on the day of discharge. DISCHARGE MEDICATIONS: 1. Allopurinol 150 mg daily. 2. Calcitriol 1 mcg p.o. daily. 3. Cinacalcet 90 mg daily. 4. Metoprolol 25 mg twice daily. 5. Sevelamer 1600 mg p.o. 3 times daily. 6. Simvastatin 20 mg p.o. q.h.s. 7. Glipizide 2.5 mg twice daily. 8. Pantoprazole 40 mg daily. ALLERGIES: TO LISINOPRIL. Job ID: [id number]
== END 2019-09-03 11:11 | disposition home or self-care (01) | DRG 368 ==
LOC: ERS 20:38 → 2NO 09-01 00:10 → T4-B 09-01 14:05
PROVIDERS: ADMIT Internal Medicine; ATTEND Internal Medicine
PROC: 5A1D70Z Performance of Urinary Filtration, Intermittent, Less than 6 Hours Per Day (ICD-10-PCS; 2019-09-01)
PROC: 0DJ08ZZ Inspection of Upper Intestinal Tract, Via Natural or Artificial Opening Endoscopic (ICD-10-PCS; principal; 2019-09-02)
DX: K22.6 Gastro-esophageal laceration-hemorrhage syndrome (principal); N18.6 End stage renal disease; I48.20 Chronic atrial fibrillation, unspecified; K22.10 Ulcer of esophagus without bleeding; D62 Acute posthemorrhagic anemia; I12.0 Hypertensive chronic kidney disease with stage 5 chronic kidney disease or end stage renal disease; Z99.2 Dependence on renal dialysis; E78.5 Hyperlipidemia, unspecified; F17.210 Nicotine dependence, cigarettes, uncomplicated; Z88.8 Allergy status to other drugs, medicaments and biological substances; E87.5 Hyperkalemia; I25.10 Atherosclerotic heart disease of native coronary artery without angina pectoris; E11.22 Type 2 diabetes mellitus with diabetic chronic kidney disease; M10.9 Gout, unspecified; K44.9 Diaphragmatic hernia without obstruction or gangrene; D63.1 Anemia in chronic kidney disease
CPT/HCPCS: 36415; 36416; 71045; 80048; 80053; 82274; 82550; 82728; 83540; 83550; 83690; 83880; 84484; 85025; 86850; 86900; 86901; 90945; 93005; 96365; 96375; C9113; G0257; J1815; J2704; J3370

== ENCOUNTER 2020-01-15 17:25 | Observation (INO) | payer MEDICARE ==
[2020-01-15 18:11] LABS: #Eosinphils 0.3 thou/uL (0.0-0.7); #Lymphocytes 1.2 thou/uL (1.20-3.40); #Monocytes 0.8 thou/uL (0.11-0.59); #Neutrophils 7.1 thou/uL (1.40-6.50); %Basophils 0.5 % (0.0-1.0); %Eosinophils 2.8 % (0.0-10.0); %Lymphocytes 13.1 % (21.0-51.0); %Monocytes 8.6 % (0.0-10.0); Hemoglobin 7.4 g/dL (14.0-18.0); Mean Corpuscular HGB CONC 34.1 g/dL (32.0-36.0); Mean Corpuscular Hemoglobin 35.9 pg (27.0-31.0); Mean Platelet Volume 6.5 fL (7.4-10.4); Platelet Count 239 thou/uL (130-400); RBC Distribution Width 15.8 % (11.5-14.5); Red Blood Cell (RBC) Count 2.06 mill/uL (4.70-6.10); White Blood Cell (WBC) Count 9.4 thou/uL (4.8-10.8)
[2020-01-15 18:28] LABS: ALT (SGPT) 11 U/L (8-55); AST (SGOT) 20 U/L (5-34); Albumin 3.4 g/dL (3.4-4.8); Alkaline Phosphatase 57 U/L (40-110); Anion Gap 22 mmol/L (10-20); BUN (Urea Nitrogen) 74 mg/dL (8.4-25.7); Bilirubin, Total 0.3 mg/dL (0.2-1.2); Calc. Creatinine Clearance 0 mL/min (70-130); Calcium 9.2 mg/dL (7.8-10.44); Carbon Dioxide 19 mmol/L (23-31); Chloride 103 mmol/L (98-107); Estimated GFR-MDRD 5; Globulin 2.9 g/dL (2.4-3.5); Glucose 96 mg/dL (80-115); Potassium 4.5 mmol/L (3.5-5.1); Protein, Total 6.3 g/dL (5.8-8.1); Sodium 139 mmol/L (136-145)
[2020-01-15 18:31] LABS: Hypochromia SLIGHT = 6-15 cells (100X) (0-5/hpf); MDiff Complete? YES; Macrocytosis SLIGHT = 6-15 cells (100X) (0-5/hpf); Platelet Morphology Comment Appears Adequate; Polychromasia SLIGHT = 2-3 cells (100X) (0-2/hpf)
[2020-01-15] MEDS ORDERED: Acetaminophen 325 MG TAB PO PRN (21:35)
[2020-01-15] MEDS ORDERED: Pantoprazole 40 MG VIAL IVP SCH (21:35)
[2020-01-15] MEDS: Sodium Chloride 0.9% 1,000 ML IV SCH (22:17)
--- NOTE | 2020-01-15 22:21 | PDOC.HHP ---
Hospitalist HPI - History of Present Illness Weakness for the past week History of Present Illness: 59yo M w/ MHx of duodenal ulceration, hematemesis, tosin-lyn tear, and atrial fibrillation (unknown if using anticoagulation) and ESRD ( peritoneal dialysis) presents for weakness and black stools. Per patient, started about a week ago, progressively worsening weakness, muiltiple black stools in past week , not taking oral iron but taking IV iron. Presented to ED due to black stools and worsening weakness on encounter, laying cofmortably in bed and has no complaints. Denies weight loss, presyncope, syncope, chest pain, palpitations, hematemesis, hematochezia, abdomianl pain, diarrhea, nsaid or steroid use, alcohol abuse ED Course: In the ED, found to be tachycardic with HgB 7.4. Was trasfused 1 x PRBC and admitted to the floor for further management Hospitalist ROS - Review of Systems Constitutional: reports: weakness, malaise. denies: fever, chills, sweats, other Respiratory: denies: cough, dry, shortness of breath, hemoptysis, SOB with excertion, pleuritic pain, sputum, wheezing, other Cardiovascular: denies: chest pain, palpitations, orthopnea, paroxysmal noc. dyspnea, edema, light headedness, other Gastrointestinal: reports: melena. denies: nausea, vomiting, abdominal pain, diarrhea, constipation, hematochezia, other - Medication Medications: Active Medications Generic Name Dose Route Start Last Admin Trade Name Freq PRN Reason Stop Dose Admin Sodium Chloride 1,000 mls @ 100 mls/hr 01/15/20 21:35 01/15/20 22:17 Normal Saline 0.9% IV 1,000 mls .Q10H SUZETTE Administration Pantoprazole Sodium 80 mg 01/15/20 21:35 01/15/20 22:17 Protonix IVP 01/15/20 23:00 80 mg NOW SUZETTE Administration Hospitalist History - Past Medical History Source: old records (PAST MEDICAL HISTORY: 1. Atrial fibrillation. 2. Cardiac pacemaker. 3. Diabetes, type 2. 4. Hyperlipidemia. 5. Hypertension. 6. Gout. 7. End-stage renal disease, on peritoneal dialysis. 8. Aneurysm. PAST SURGICAL HISTORY: 1. Left knee surgery. 2. Cardiac pacemaker. 3. AAA correction. 4. Peritoneal dialysis catheter placement. 5. Cardiac pacemaker. SOCIAL HISTORY: He is a former drug user, abuses cocaine and marijuana. Currently, the patient smokes cigarettes, smokes half pack per day. FAMILY HISTORY: Reviewed and noncontributory. ALLERGIES: ALLERGIC TO LISINOPRIL. HOME MEDICATIONS: Please see home medication reconciliation form for updated medications.) - Exam General Appearance: NAD, awake alert Eye: PERRL ENT: normocephalic atraumatic, no oropharyngeal lesions, moist mucosa Neck: no JVD Heart: RRR, no murmur, no gallops, no rubs, normal peripheral pulses Respiratory: CTAB, no wheezes, no rales, no ronchi, normal chest expansion, no tachypnea, normal percussion Gastrointestinal: soft, non-tender, non-distended, normal bowel sounds, no palpable masses, no hepatomegaly, no splenomegaly, no bruit Gastrointestinal - other findings: rectal exam: no fresh blood or black stools appreciated Extremities: no edema Psychiatric: normal affect, normal behavior, A&O x 3 Hospitalist Results - Labs Result Diagrams: 01/15/20 17:59 01/15/20 17:59 Lab results: WBC 9.4 thou/uL (4.8-10.8) 01/15/20 17:59 Hgb 7.4 g/dL (14.0-18.0) L 01/15/20 17:59 Hct 21.7 % (42.0-52.0) L 01/15/20 17:59 MCV 105.0 fL (78.0-98.0) H 01/15/20 17:59 Plt Count 239 thou/uL (130-400) 01/15/20 17:59 Neutrophils % 75.0 % (42.0-75.0) 01/15/20 17:59 Sodium 139 mmol/L (136-145) 01/15/20 17:59 Potassium 4.5 mmol/L (3.5-5.1) 01/15/20 17:59 Chloride 103 mmol/L (98-107) 01/15/20 17:59 Carbon Dioxide 19 mmol/L (23-31) L 01/15/20 17:59 BUN 74 mg/dL (8.4-25.7) H 01/15/20 17:59 Creatinine 13.30 mg/dL (0.7-1.3) H 01/15/20 17:59 Glucose 96 mg/dL (80-115) 01/15/20 17:59 Calcium 9.2 mg/dL (7.8-10.44) 01/15/20 17:59 Total Bilirubin 0.3 mg/dL (0.2-1.2) 01/15/20 17:59 AST 20 U/L (5-34) 01/15/20 17:59 ALT 11 U/L (8-55) 01/15/20 17:59 Alkaline Phosphatase 57 U/L (40-110) 01/15/20 17:59 Serum Total Protein 6.3 g/dL (5.8-8.1) 01/15/20 17:59 Albumin 3.4 g/dL (3.4-4.8) 01/15/20 17:59 Hospitalist H&P A/P - Problem (1) CAD (coronary artery disease) Code(s): I25.10 - ATHSCL HEART DISEASE OF [place] CORONARY ARTERY W/O ANG PCTRS Status: Chronic Qualifiers: Coronary Disease-Associated Artery/Lesion type: [place] artery [place] vs. transplanted heart: [place] heart Associated angina: without angina Qualified Code(s): I25.10 - Atherosclerotic heart disease of [place] coronary artery without angina pectoris (2) DM type 2 (diabetes mellitus, type 2) Status: Chronic Qualifiers: Diabetes mellitus terminal system operator insulin use: without terminal system operator use Diabetes mellitus complication status: with kidney complications Diabetes mellitus complication detail: with chronic kidney disease Chronic kidney disease stage : on chronic dialysis Qualified Code(s): E11.22 - Type 2 diabetes mellitus with diabetic chronic kidney disease; N18.6 - End stage renal disease; Z99.2 - Dependence on renal dialysis (3) ESRD (end stage renal disease) on dialysis Code(s): N18.6 - END STAGE RENAL DISEASE; Z99.2 - DEPENDENCE ON RENAL DIALYSIS Status: Chronic (4) GI (gastrointestinal bleed) Code(s): K92.2 - GASTROINTESTINAL HEMORRHAGE, UNSPECIFIED Status: Suspected - Plan Plan: #chronic symptomatic anemia history of duodenal ulcer, MVT report melanotic stools; rectal exam unremarkable HgB 7.4; baseline ~ 11 endorses adherence to IV iron s/p 1 x PRBC IV PPI GI consulted iron panel, FOBT IVF #atrial fibrillation currently sinus; unknown if on anticoagulation pending medication reconciliation #ESRD, peritoneal dialysis consult nephrology #HTN -currently normotensive -PRN antihtn considering possibility for decompensation #T2DM weight based insulin regimen dispo/ppx full code. is surrogate GI PPx on therapeutic DVT PPx SCDs
[2020-01-15] MEDS ORDERED: Dextrose 5% in Water 1,000 ML IV PRN (22:57)
[2020-01-15] MEDS ORDERED: Dextrose 50% Abboject 50 ML SYRINGE SLOW IVP PRN (22:57)
[2020-01-15] MEDS ORDERED: HumaLOG 300 UNITS/3 ML VIAL SC PRN (22:57)
[2020-01-16 04:25] LABS: #Basophils 0.1 thou/uL (0.0-0.2); #Eosinphils 0.3 thou/uL (0.0-0.7); #Lymphocytes 0.9 thou/uL (1.20-3.40); #Monocytes 0.7 thou/uL (0.11-0.59); #Neutrophils 6.1 thou/uL (1.40-6.50); %Basophils 0.7 % (0.0-1.0); %Eosinophils 3.6 % (0.0-10.0); %Lymphocytes 11.6 % (21.0-51.0); %Monocytes 8.7 % (0.0-10.0); %Neutrophils 75.4 % (42.0-75.0); Hemoglobin 8.1 g/dL (14.0-18.0); Mean Corpuscular HGB CONC 34.4 g/dL (32.0-36.0); Mean Corpuscular Hemoglobin 35.8 pg (27.0-31.0); Mean Platelet Volume 6.7 fL (7.4-10.4); Platelet Count 249 thou/uL (130-400); RBC Distribution Width 16.6 % (11.5-14.5); Red Blood Cell (RBC) Count 2.27 mill/uL (4.70-6.10); White Blood Cell (WBC) Count 8.1 thou/uL (4.8-10.8)
[2020-01-16 05:12] LABS: Anion Gap 18 mmol/L (10-20); BUN (Urea Nitrogen) 77 mg/dL (8.4-25.7); Calc. Creatinine Clearance 8 mL/min (70-130); Calcium 8.8 mg/dL (7.8-10.44); Carbon Dioxide 18 mmol/L (23-31); Chloride 107 mmol/L (98-107); Estimated GFR-MDRD 5; Glucose 86 mg/dL (80-115); Iron 106 ug/dL (65-175); Potassium 5.1 mmol/L (3.5-5.1); Sodium 138 mmol/L (136-145)
[2020-01-16 05:13] LABS: Iron 107 ug/dL (65-175); Iron Binding Capacity, Total 213 mcg/dL (261-462)
[2020-01-16] MEDS: Sodium Chloride 0.9% 1,000 ML IV SCH (08:00)
[2020-01-16] MEDS ORDERED: Epoetin (ESRD) 20,000 UNITS/ML SC SCH (08:00)
--- NOTE | 2020-01-16 08:40 | CON ---
DATE OF CONSULTATION: HISTORY OF PRESENT ILLNESS: Mr. Hodges is a 59-year-old black male with ESRD, currently on peritoneal dialysis, was admitted for symptomatic anemia. His hemoglobin in the outpatient has been dropping. A stool card was given. It was noted to be positive. At one time, hemoglobin was noted at 7. He is here for further evaluation. We are following up this patient for management of his ESRD as well as maintenance peritoneal dialysis. Please note, he does CCPD. REVIEW OF SYSTEMS: Positive for generalized malaise. No nausea. No vomiting. Denies any abdominal pain. No productive cough. No fever or chills. No headache. No diplopia. No sore throat. No hematochezia. No melena. No hematemesis. No dysuria. No urinary frequency. Occasional joint pains. No syncopal episode. No chest pain or shortness of breath. HOME MEDICATIONS: Currently on, 1. Protonix 40 mg IV q.12h. 2. Humalog sliding scale. 3. Insulin glargine 10 units subcu at bedtime. PAST MEDICAL HISTORY: 1. ESRD from diabetic nephropathy. 2. History of duodenal ulcer. 3. Chronic atrial fibrillation. 4. Type-2 diabetes mellitus. 5. Gout. 6. Aneurysm. 7. Hypertension. 8. Coronary artery disease. PAST SURGICAL HISTORY: 1. Status post PD catheter placement. 2. Status post cardiac cath with coronary artery stent placement. 3. Status post aneurysmal repair of abdominal aneurysm. 4. Status post pacemaker placement. 5. Status post ACL repair - left. ALLERGIES: NONE. TRAUMA: None. IMMUNIZATIONS: Up to date. HOSPITALIZATIONS: Please see past medical history. SOCIAL HISTORY: The patient lives in [place]. He is . He is a . Currently, no smoking or alcohol. Status post blood transfusion. Occasional marijuana use. FAMILY HISTORY: No family history of ESRD. PHYSICAL EXAMINATION: VITAL SIGNS: Blood pressure is 150/67, heart rate is 88, respiratory rate is 16, temperature is 98.1, O2 saturation is 100%. GENERAL: Awake, alert, comfortable, not in overt distress. SKIN: Adequate turgor. HEENT: Pinkish conjunctivae. Anicteric sclerae. No neck mass. No carotid bruits. No JVD. CHEST: No deformities. LUNGS: Clear breath sounds. HEART: Normal sinus rhythm. No murmurs. No gallops. No rubs. ABDOMEN: Globular, soft, nontender. No masses. Positive for PD catheter. EXTREMITIES: No edema. No deformities. LABORATORY DATA: Laboratories of January 16, 2020, white count 8.1, hemoglobin 8.1; on January 15, 2020, white count 9.4, hemoglobin 7.4. On January 16, 2020; sodium 138, potassium 5.1, chloride 107, carbon dioxide 18, BUN 77, creatinine 13, glucose 86, calcium 8.8. Iron 107, TIBC 213, ferritin 902. ASSESSMENT AND PLAN: 1. Anemia/GI bleed - the patient has history of duodenal ulcer in the past. We will reconsult GI. P.r.n. blood transfusion. Continue weekly Epogen 10,000 units subcu every week. 2. End-stage renal disease, stable. We will resume back current CCPD regimen tonight. We will follow the outpatient peritoneal dialysis regimen. Review of the last Kt/V suggests he is adequately dialyzed with the current dialysis regimen. 3. Hyperphosphatemia. Restart Renvela 800 mg 2 tablets t.i.d. with meals. Recheck CBC and basic metabolic. Job ID: [id number]
[2020-01-16] MEDS ORDERED: Pantoprazole 40 MG VIAL IVP SCH (09:00)
[2020-01-16] MEDS: Sevelamer Carbonate 800 MG TAB PO SCH ×3 (10:14→19:25)
[2020-01-16] MEDS ORDERED: PROPOFOL 200 MG/20 ML VIAL ONE ×2 (10:22)
[2020-01-16] MEDS ORDERED: EPOETIN ALFA-EPBX (ESRD) 10,000 UNIT/ML VIAL SC SCH (12:00)
[2020-01-16] MEDS ORDERED: Sevelamer Carbonate 800 MG TAB PO SCH (12:00)
[2020-01-16] MEDS ORDERED: Dexamethasone 4 mg/ml Vial ONE (12:58)
[2020-01-16] MEDS ORDERED: Ondansetron HCl/PF 4 MG/2 ML Vial IVP PRN (13:02)
--- NOTE | 2020-01-16 13:31 | PDOC.HOSPP ---
- Subjective Encounter Date: 01/16/20 Encounter Time: 08:00 Subjective: no overnight events. this morning, feeling well and has no complaints. pending EGD - Objective Vital Signs & Weight: Vital Signs (12 hours) Temp Pulse Resp BP BP BP Pulse Ox 01/16/20 10:51 97.6 F 103 H 18 143/75 H 96 01/16/20 08:00 97.5 F L 90 14 131/71 131/71 100 01/16/20 03:43 98.1 F 88 16 150/67 H 100 Weight Weight 189 lb 6.4 oz I&O: 01/15/20 01/16/20 01/17/20 06:59 06:59 06:59 Intake Total 810 Output Total 400 Balance 410 Result Diagrams: 01/16/20 03:58 01/16/20 03:58 Additional Labs: Accuchecks 01/16/20 01/16/20 01/16/20 10:57 08:05 03:07 POC Glucose 88 93 99 Hospitalist ROS - Review of Systems Constitutional: denies: fever, chills, sweats Respiratory: denies: cough, dry, shortness of breath Cardiovascular: denies: chest pain, palpitations, orthopnea Gastrointestinal: denies: nausea, vomiting, abdominal pain, melena - Medication Medications: Active Medications Generic Name Dose Route Start Last Admin Trade Name Sinanq PRN Reason Stop Dose Admin Sevelamer Carbonate 1,600 mg 01/16/20 08:00 01/16/20 10:14 Renvela PO Not Given TID-WM SUZETTE - Exam General Appearance: NAD, awake alert Neck: no JVD Heart: no murmur, no gallops, no rubs Heart - other findings: regular rhythm, tachycardic; 3/6 decresendo systolic mitral area Respiratory: CTAB, no wheezes, no rales, no ronchi Gastrointestinal: soft, non-tender, non-distended Extremities: no edema Psychiatric: normal affect, normal behavior, A&O x 3 Hosp A/P (1) CAD (coronary artery disease) Code(s): I25.10 - ATHSCL HEART DISEASE OF [place] CORONARY ARTERY W/O ANG PCTRS Status: Chronic Qualifiers: Coronary Disease-Associated Artery/Lesion type: [place] artery [place] vs. transplanted heart: [place] heart Associated angina: without angina Qualified Code(s): I25.10 - Atherosclerotic heart disease of [place] coronary artery without angina pectoris (2) DM type 2 (diabetes mellitus, type 2) Status: Chronic Qualifiers: Diabetes mellitus compressor house operator insulin use: without compressor house operator use Diabetes mellitus complication status: with kidney complications Diabetes mellitus complication detail: with chronic kidney disease Chronic kidney disease stage : on chronic dialysis Qualified Code(s): E11.22 - Type 2 diabetes mellitus with diabetic chronic kidney disease; N18.6 - End stage renal disease; Z99.2 - Dependence on renal dialysis (3) ESRD (end stage renal disease) on dialysis Code(s): N18.6 - END STAGE RENAL DISEASE; Z99.2 - DEPENDENCE ON RENAL DIALYSIS Status: Chronic (4) GI (gastrointestinal bleed) Code(s): K92.2 - GASTROINTESTINAL HEMORRHAGE, UNSPECIFIED Status: Suspected - Plan #chronic macrocytotic symptomatic anemia history of duodenal ulcer, MVT HgB 7.4->8.1 s/p 1xPRBC pending EGD s/p 1 x PRBC folate, b12 GI onboard #atrial fibrillation currently sinus; medication reconciled, not on anticoag CHADSVASC 2 #ESRD, peritoneal dialysis appreciated nephrology recs #HTN -above goal; continue to follow #T2DM well controlled dispo/ppx full code. is surrogate GI PPx on therapeutic DVT PPx SCDs
--- NOTE | 2020-01-16 15:13 | CON ---
DATE OF CONSULTATION: 01/16/2020 REASON FOR CONSULTATION: Dlufc-eu-[id number] anemia, history of black stool. HISTORY OF PRESENT ILLNESS: Mr. Hodges is a 59-year-old male with end-stage renal disease, on maintenance peritoneal dialysis, in addition to atrial fibrillation, not on an any anticoagulant, presented to the hospital with acute anemia with hemoglobin down to 7.4. The patient relates having history of black stool for 2-week duration, that stopped approximately 3 days ago. Since that time, he has had regular normal brown stool. He reports having periodic lower abdominal crampy pain with heavy exertion, associated with nausea and vomiting. There has not been any hematemesis or coffee-ground emesis. He otherwise has normal appetite with normal intake without any bowel changes. The patient has history of previous upper GI bleed. The patient has history of duodenal ulcer 2 years ago. Most recently, he had a small Dayanara-Berg tear on upper endoscopy earlier in August. The patient has received a unit of red blood cell transfusion in the ER. Currently, he is doing well without any reported problem. PAST MEDICAL HISTORY: 1. End-stage renal disease, on peritoneal dialysis. 2. Adult onset diabetes. 3. Hypertension. 4. Atrial fibrillation. 5. Status post cardiac pacemaker placement. 6. AAA surgery. 7. Left knee surgery. ALLERGIES: INCLUDE LISINOPRIL. SOCIAL HISTORY: The patient does smoke less than a pack a day. He denies any alcohol usage. FAMILY HISTORY: Negative for any known GI problem, liver disease, or GI malignancy. MEDICATIONS AT HOME: Include: 1. Cinacalcet. 2. Allopurinol. 3. Metoprolol. 4. Rocaltrol. 5. Renvela. 6. Pantoprazole 40 mg daily. 7. Glipizide. REVIEW OF SYSTEMS: Ten-point review of systems did not show any other reported symptoms, negative for any pertinent positives or negatives. PHYSICAL EXAMINATION: VITAL SIGNS: Temperature is 97.5, blood pressure 131/71, pulse of 100. GENERAL: He is alert conversant, does not appear in any distress. HEENT: Anicteric sclerae. Oropharynx is clear and moist. NECK: Supple. CV: Normal S1 and S2. Regular rate and rhythm. Slight tachycardia. CHEST: Breath sounds. ABDOMEN: Soft, flat. No distention. No tympany. He has active bowel sounds. No palpable mass or organomegaly. EXTREMITIES: No edema. LABORATORY DATA: WBCs 8.1, hemoglobin 8.1 after 1 unit of RBC transfusion up from 7.4, MCV of 104, and platelet count of 249. Electrolytes within normal range. Creatinine 13.0 and BUN of 77. Ferritin of 902. ASSESSMENT: 1. A 59-year-old male with acute on chronic anemia with reported history of 2-week history of melenic stool, that has since resolved. Current stool is negative for occult blood. I suspect his acute anemia from gastrointestinal blood loss. He does have history of peptic ulcer disease before. 2. Other medical problems include diabetes, hypertension, atrial fibrillation, and end-stage renal disease, stable. RECOMMENDATIONS: 1. Continue IV pantoprazole 40 mg q.12 for now. 2. Proceed with upper endoscopy today. 3. Further recommendation to follow pending endoscopic finding. Job ID: [id number]
[2020-01-16] MEDS ORDERED: CINACALCET HCL 90 MG PO SCH (17:00)
--- NOTE | 2020-01-16 18:35 | OP ---
DATE OF PROCEDURE: 01/16/2020 PROCEDURE PERFORMED: Esophagogastroduodenoscopy with biopsy. PREMEDICATION: Given by Anesthesiology Department. PREPROCEDURE DIAGNOSIS: Acute on chronic anemia with history of melenic stool. POSTPROCEDURE DIAGNOSES: 1. Duodenitis with multiple erosions. 2. Small 5 mm shallow ulcer in the first part of duodenum. DESCRIPTION OF PROCEDURE: Written consents were obtained prior to procedure. After adequate sedation, the forward-viewing endoscope was advanced down the stomach under direct vision to the third portion of duodenum. The second and third portion appeared normal. In the first portion, mucosal erythema was seen along the folds. Multiple shallow erosions were noted in the duodenal bulb and few in the first portion. A shallow 5 mm ulcer was seen without any stigmata of bleeding. The gastric antrum, body, fundus, and cardia all appeared normal including retroflexion. Biopsies were obtained from the lower half of the stomach for H pylori testing. The GE junction was located at 38 cm. The lower, mid, and upper esophagus appeared normal. No signs of active bleeding were seen during this exam. ASSESSMENT: 1. Duodenitis with multiple erosions. 2. Shallow duodenal ulcer, 5 mm without stigmata of bleeding. 3. Otherwise normal upper endoscopy. RECOMMENDATIONS: 1. Continue pantoprazole 40 mg, change to b.i.d. 2. Follow up on biopsy for H pylori. 3. Resume diet. 4. Since there are no signs or stigmata of GI bleeding on this exam, if the patient has recurrent anemia in the future associated black stool, we will proceed with small-bowel capsule endoscopy. Job ID: [id number] MTDD
[2020-01-16] MEDS: Metoprolol Tartrate 50 MG TAB PO SCH (20:48)
[2020-01-16 20:56] VITALS: BMI 25.7
[2020-01-16] MEDS ORDERED: Insulin Glargine 10 UNITS in Pre-Filled Syringe 1 EACH SC SCH (21:00)
[2020-01-16] MEDS ORDERED: HumaLOG 300 UNITS/3 ML VIAL SC PRN (21:18)
[2020-01-17 04:30] LABS: #Lymphocytes 0.5 thou/uL (1.20-3.40); #Monocytes 0.4 thou/uL (0.11-0.59); #Neutrophils 13.1 thou/uL (1.40-6.50); %Basophils 0.1 % (0.0-1.0); %Eosinophils 0.1 % (0.0-10.0); %Lymphocytes 3.5 % (21.0-51.0); %Monocytes 2.6 % (0.0-10.0); %Neutrophils 93.7 % (42.0-75.0); Hemoglobin 8.5 g/dL (14.0-18.0); Mean Corpuscular HGB CONC 35.6 g/dL (32.0-36.0); Mean Corpuscular Hemoglobin 36.5 pg (27.0-31.0); Mean Platelet Volume 6.9 fL (7.4-10.4); Platelet Count 265 thou/uL (130-400); RBC Distribution Width 15.9 % (11.5-14.5); Red Blood Cell (RBC) Count 2.32 mill/uL (4.70-6.10); White Blood Cell (WBC) Count 13.9 thou/uL (4.8-10.8)
[2020-01-17 04:53] LABS: Phosphorus 8.2 mg/dL (2.3-4.7)
[2020-01-17 04:55] LABS: Anion Gap 17 mmol/L (10-20); BUN (Urea Nitrogen) 80 mg/dL (8.4-25.7); Calc. Creatinine Clearance 8 mL/min (70-130); Calcium 9.7 mg/dL (7.8-10.44); Carbon Dioxide 19 mmol/L (23-31); Chloride 106 mmol/L (98-107); Estimated GFR-MDRD 5; Glucose 132 mg/dL (80-115); Magnesium 2.2 mg/dL (1.6-2.6); Potassium 5.1 mmol/L (3.5-5.1); Sodium 137 mmol/L (136-145)
--- NOTE | 2020-01-17 07:58 | PRG ---
DATE OF SERVICE: 01/17/2020 SUBJECTIVE: Mr. Hodges is a 59-year-old black male with ESRD - on peritoneal dialysis and admitted for GI bleed. He underwent an upper GI endoscopy yesterday with Dr. Burgos. Duodenitis with multiple erosions was noted. There was a shallow duodenal ulcer 5 mm without evidence of active bleeding. This morning, he is feeling better. He denies any chest pain or shortness of breath. OBJECTIVE: VITAL SIGNS: Blood pressure 141/86, heart rate 87, respiratory rate 16, temperature 98, and pulse ox 97%. GENERAL: The patient is awake, alert, comfortable, not in distress. SKIN: Adequate turgor. HEENT: He has pinkish conjunctivae. Anicteric sclerae. NECK: No neck mass. No carotid bruits. No JVD. CHEST: No deformities. LUNGS: Clear breath sounds. HEART: Normal sinus rhythm. No murmur. No gallops. No rubs. ABDOMEN: Globular, soft, and nontender. No masses. Positive for PD catheter. EXTREMITIES: No edema. No deformities. MEDICATIONS: Medications of January 17, 2020, reviewed. LABORATORY DATA: Laboratories of January 17, 2020, white count 13.9 and hemoglobin 8.5. Sodium 137, potassium 5.1, chloride 106, carbon dioxide 19, BUN 80, creatinine 12.0, glucose 132, calcium 9.7, and phosphorus 8.2. ASSESSMENT AND PLAN: 1. Hyperphosphatemia - the patient to resume his phosphate binders. Dietary advice. 2. End-stage renal disease, stable. Tolerated current hemodialysis regimen. Fluid removal was also tolerated. No changes with the current PD regimen. 3. Status post gastrointestinal bleed, stable. H and H were noted to be about the same from yesterday. Continue current Epogen regimen. Agree with current management. Job ID: [id number]
[2020-01-17] MEDS ORDERED: Lanthanum Carbonate 500 mg Tablet PO SCH (08:00)
[2020-01-17] MEDS ORDERED: LANTHANUM CARBONATE 1000 MG PO SCH (08:00)
[2020-01-17] MEDS: Sevelamer Carbonate 800 MG TAB PO SCH ×2 (08:31→10:59)
[2020-01-17] MEDS: Metoprolol Tartrate 50 MG TAB PO SCH (08:32)
[2020-01-17] MEDS ORDERED: Calcitriol 0.25 MCG CAP PO SCH (09:00)
[2020-01-17] MEDS ORDERED: Allopurinol 300 MG TAB PO SCH (09:00)
[2020-01-17 11:33] VITALS: BP 140/68; TEMP 98
--- NOTE | 2020-01-17 13:59 | DIS ---
DATE OF ADMISSION: 01/15/2020 DATE OF DISCHARGE: 01/17/2020 HOSPITAL COURSE: Mr. Hodges is a 59-year-old male with a medical history of duodenal ulcer, hematemesis, Dayanara-Berg tears, and atrial fibrillation (not on anticoagulation), and end-stage renal disease, on peritoneal dialysis, who presented with weakness and melenic stools. He was diagnosed with duodenitis and duodenal ulceration. Per GI, the patient's pantoprazole was increased from once daily to b.i.d. Gastric biopsy was taken and should be followed by the primary care physician. The patient was discharged home hemodynamically stable with stable hemoglobin and resolution of symptoms. PHYSICAL EXAMINATION: VITAL SIGNS: Blood pressure 132/66, temperature 98.4, pulse 82, respiratory rate 16, and oxygen saturation 100% on room air. GENERAL APPEARANCE: No apparent distress. Awake and alert. NECK: No JVD. HEART: Regular rhythm and rate. A 3/6 decrescendo systolic murmur in the mitral valve area. RESPIRATORY: Clear to auscultation bilaterally. No wheezing, rales, or rhonchi. GI: Soft, nontender, nondistended. EXTREMITIES: No edema. PSYCHIATRIC: Proper mood and affect. Alert and oriented x3. MEDICATION LIST: New medications: Folic acid due to microcytic anemia and folate deficiency. Modified medications: Pantoprazole was increased from 40 mg once daily to b.i.d. Remaining medications were unchanged. Job ID: [id number]
== END 2020-01-17 12:57 | disposition home or self-care (01) ==
LOC: ERS 17:25 → ONC 19:43
PROVIDERS: ADMIT Internal Medicine; ATTEND Internal Medicine
PROC: 0DB58ZX Excision of Esophagus, Via Natural or Artificial Opening Endoscopic, Diagnostic (ICD-10-PCS; principal; 2020-01-16)
DX: K29.50 Unspecified chronic gastritis without bleeding (principal); B96.81 Helicobacter pylori [H. pylori] as the cause of diseases classified elsewhere; K29.80 Duodenitis without bleeding; K26.9 Duodenal ulcer, unspecified as acute or chronic, without hemorrhage or perforation; K22.6 Gastro-esophageal laceration-hemorrhage syndrome; D62 Acute posthemorrhagic anemia; I12.0 Hypertensive chronic kidney disease with stage 5 chronic kidney disease or end stage renal disease; E11.21 Type 2 diabetes mellitus with diabetic nephropathy; E11.22 Type 2 diabetes mellitus with diabetic chronic kidney disease; N18.6 End stage renal disease; I25.10 Atherosclerotic heart disease of native coronary artery without angina pectoris; I48.20 Chronic atrial fibrillation, unspecified; F17.210 Nicotine dependence, cigarettes, uncomplicated; Z79.4 Long term (current) use of insulin; Z79.899 Other long term (current) drug therapy; Z88.8 Allergy status to other drugs, medicaments and biological substances; Z95.0 Presence of cardiac pacemaker; Z99.2 Dependence on renal dialysis
CPT/HCPCS: 36430; 43239; 80048 ×2; 80053; 82274; 82607; 82728; 82746; 82962 ×2; 83540; 83550 ×2; 83735; 84100; 85025 ×3; 86850; 86900; 86901; 86920; 88305; 88312; 96372; 96374; 96376; 97139 ×5; 99285; G0378 ×4; P9016; Q5105; 36415; 36416; 90945; C9113; G0257; J1100; J1815; J2704; J7620